=== PATIENT | male | born 1935 | race Caucasian/White ===

== ENCOUNTER 2016-12-14 07:10 | Observation (INO) | payer MEDICARE, OTHER ==
[2016-12-14] MEDS ORDERED: Sodium Chloride 0.9% 5 ML Syringe FLUSH PRN (07:18)
[2016-12-14 07:59] LABS: CHLORIDE,CL 104 mmol/L (98-115); SODIUM,NA 141 mmol/L (136-145)
--- NOTE | 2016-12-14 11:23 | EDM.PDOC ---
ED HPI GENERAL MEDICAL PROBLEM - General Chief Complaint: General Stated Complaint: SOB Time Seen by Provider: 12/14/16 07:50 Source of Information: Reports: Patient History Limitations: Reports: No limitations - History of Present Illness INITIAL COMMENTS - FREE TEXT/NARRATIVE: PT STATES HE DEVELOPED SOB OVER PAST 2 DAYS. DENIES CP, FEVER, N/V/D, DIZZINESS , FUENTES, ABD PAIN, OR BLOOD IN STOOL. ADMITS TO CONSTIPATION. Onset Date: 12/12/16 Duration: Getting worse Improves with: Reports: None Worsens with: Reports: Movement Context: Reports: Activity Associated Symptoms: Reports: no other symptoms Treatments PEDIATRIC DENTIST: Reports: Oxygen, Other (see below) Other Treatments PEDIATRIC DENTIST: home O2 - Related Data Allergies Allergy/AdvReac Type Severity Reaction Status Date / Time No Known Drug Allergies Allergy Cannot Verified 12/14/16 07:13 Remember Home Meds: Home Meds Allopurinol [Zyloprim] 100 mg PO BEDTIME 12/14/16 [History] Carbidopa/Levodopa [Carbidopa-Levodopa 25-100 Tab] 1 tab PO DAILY 12/14/16 [ History] Carvedilol [Carvedilol] 25 mg PO DAILY 12/14/16 [History] Digoxin 125 mcg PO DAILY 12/14/16 [History] Furosemide 40 mg PO DAILY 12/14/16 [History] Insulin Glarg,Human.Rec.Analog [LantUS Solostar] 75 units SQ BEDTIME 12/14/16 [ History] Lisinopril 20 mg PO DAILY 12/14/16 [History] Simvastatin [Simvastatin] 20 mg PO BEDTIME 12/14/16 [History] Sotalol [Betapace] 80 mg PO BID 12/14/16 [History] Tamsulosin [Flomax] 0.4 mg PO DAILY 12/14/16 [History] Terazosin HCl [Terazosin] 2 mg PO DAILY 12/14/16 [History] Warfarin [Coumadin] 2.5 mg PO MOFR 12/14/16 [History] Warfarin [Coumadin] 5 mg PO SUTUWETHSA 12/14/16 [History] metFORMIN HCl [Metformin HCl] 500 mg PO TIDMEALS 12/14/16 [History] Social & Family History - Tobacco Use Smoking Status *Q: Former Smoker Years of Tobacco use: 15 Packs/Tins Daily: 1 Used Tobacco, but Quit: Yes Month Tobacco Last Used: august Second Hand Smoke Exposure: No - Caffeine Use Caffeine Use: Reports: Coffee - Recreational Drug Use Recreational Drug Use: No ED ROS GENERAL - Review of Systems Review Of Systems: ROS reveals no pertinent complaints other than HPI. Constitutional: Reports: no symptoms HEENT: Reports: No symptoms Respiratory: Reports: No Symptoms Cardiovascular: Reports: Dyspnea on exertion Endocrine: Reports: no symptoms GI/Abdominal: Reports: Constipation : Reports: no symptoms Musculoskeletal: Reports: no symptoms Skin: Reports: no symptoms Neurological: Reports: No Symptoms Psychiatric: Reports: No symptoms Hematologic/Lymphatic: Reports: no symptoms Immunologic: Reports: no symptoms ED EXAM, GENERAL - Physical Exam Exam: See Below Exam Limited By: No limitations General Appearance: alert, WD/WN, no apparent distress Eye Exam: bilateral eye: normal inspection Nose: normal inspection, normal mucosa, no blood Throat/Mouth: Normal inspection, Normal oropharynx, No airway compromise Head: atraumatic, normocephalic Neck: normal inspection, supple Respiratory/Chest: no respiratory distress, decreased breath sounds (BIBASILAR) Cardiovascular: normal peripheral pulses, regular rate, rhythm, diastolic murmur GI/Abdominal: normal bowel sounds, soft, non tender, no organomegaly, no distention, no abnormal bruit, no mass Back Exam: normal inspection. No: CVA tenderness (L), CVA tenderness (R) Extremities: normal inspection, no pedal edema Neurological: alert, oriented, CN II-XII intact, normal cognition, no motor/ sensory deficits Psychiatric: normal affect, normal mood Skin Exam: Warm, Dry, Intact, Normal color, No rash Lymphatic: no adenopathy EKG INTERPRETATION EKG Date: 12/14/16 Time: 07:25 Rate (beats/min): 70 QRS: wide EKG Interpretation Comments: OLD INFARCT / NO ACUTE Course - Vital Signs Last Recorded V/S: Last Vital Signs Temp 97.8 F 12/14/16 07:10 Pulse 68 12/14/16 07:30 Resp 28 H 12/14/16 07:30 BP 155/74 H 12/14/16 07:30 Pulse Ox 97 12/14/16 07:30 - Orders/Labs/Meds Orders: Active Orders 24 hr Category Date Time Status EKG Documentation Completion [RC] ASDIRECTED Care 12/14/16 07:20 Active Peripheral IV Care [RC] . DIRECTED Care 12/14/16 07:20 Active Sodium Chloride 0.9% [Syrex Flush] Med 12/14/16 07:18 Active 5 ml FLUSH Q8HR PRN Peripheral IV Insertion Adult [OM.PC] Stat Oth 12/14/16 07:18 Ordered EKG 12 Lead [EK] Stat Ther 12/14/16 07:18 Ordered Medication Orders Sodium Chloride (Syrex Flush) 5 ml FLUSH Q8HR PRN PRN Reason: Keep Vein Open Labs: Laboratory Tests 12/14/16 12/14/16 12/14/16 Range/Units 07:25 07:25 07:35 WBC 15.3 H (5.0-10.0) 10^3/uL RBC 3.91 L (4.50-6.00) 10^6/uL Hgb 11.1 L (13.0-17.0) g/dL Hct 33.2 L (40.0-52.0) % MCV 85.0 (82.0-92.0) fL MCH 28.5 (27.0-31.0) pg MCHC 33.5 (32.0-36.0) g/dL RDW 13.6 (11.5-14.5) % Plt Count 211 (150-300) 10^3/uL MPV 8.9 (7.4-10.4) fL Neut % (Auto) 79.4 H (50.0-70.0) % Lymph % (Auto) 13.4 L (20.0-40.0) % [place] % (Auto) 6.1 (2.0-8.0) % Eos % (Auto) 0.6 L (1.0-3.0) % Baso % (Auto) 0.5 (0.0-1.0) % Neut # (Auto) 12.1 H (2.5-7.0) 10^3/uL Lymph # (Auto) 2.1 (1.0-4.0) 10^3/uL [place] # (Auto) 0.9 H (0.1-0.8) 10^3/uL Eos # (Auto) 0.1 (0.1-0.3) 10^3/uL Baso # (Auto) 0.1 (0.0-0.1) 10^3/uL Sodium 141 (136-145) mmol/L Potassium 4.3 (3.3-5.3) mmol/L Chloride 104 (98-115) mmol/L Carbon Dioxide 28.9 (21.0-32.0) mmol/L BUN 18 (6-25) mg/dL Creatinine 0.98 (0.51-1.17) mg/dL Est Cr Clr Drug Dosing 65.10 mL/min Estimated GFR (MDRD) > 60 mL/min Glucose 263 H (70-110) mg/dL Calcium 8.9 (8.7-10.3) mg/dL Total Bilirubin 1.4 H (0.2-1.0) mg/dL AST 30 (15-37) U/L ALT 29 (12-78) U/L Alkaline Phosphatase 71 (46-116) IU/L Total Protein 7.2 (6.4-8.2) g/dL Albumin 3.35 (3.00-4.80) g/dL Specimen Type Urincc Urine Color Yellow (YELLOW) Urine Appearance Clear (CLEAR) Urine pH 6.0 (5.0-9.0) Ur Specific [place] 1.020 (1.005-1.030) Urine Protein 100 H (NEGATIVE) mg/dL Urine Glucose (UA) 100 H (NEGATIVE) mg/dL Urine Ketones Trace H (NEGATIVE) mg/dL Urine Occult Blood Negative (NEGATIVE) Urine Nitrite Negative (NEGATIVE) Urine Bilirubin Negative (NEGATIVE) Urine Urobilinogen 4.0 H (0.2-1.0) E.U./dL Ur Leukocyte Esterase Negative (NEGATIVE) Urine RBC 0-5 /HPF Urine WBC 0-5 /HPF Ur Epithelial Cells Occasional /LPF Urine Bacteria Occasional (NONE TO FEW) /HPF Urine Mucus Few H (NEGATIVE) /LPF Meds: Medications Generic Name Dose Route Start Last Admin Trade Name Freq PRN Reason Stop Dose Admin Sodium Chloride 5 ml 12/14/16 07:18 Syrex Flush FLUSH Q8HR PRN Keep Vein Open - Radiology Interpretation Free Text/Narrative:: CXR SHOWS BILAT BASILAR EFFUSIONS - Re-Assessments/Exams Free Text/Narrative Re-Assessment/Exam: 12/14/16 11:44 PT AFEBRILE, NONTOXIC APPEARING, VSS. DISCUSSED CASE WITH DR ROMERO. WILL ADMIT TO OBSERVATION Departure - Departure Time of Disposition: 11:45 Disposition: Refer to Observation Condition: fair Clinical Impression: SOB (shortness of breath) CHF (congestive heart failure) Qualifiers: Congestive heart failure type: unspecified congestive heart failure type Congestive heart failure chronicity: acute on chronic Qualified Code(s): I50.9 - Heart failure, unspecified Forms: ED Department Discharge - My Orders Last 24 Hours: My Active Orders 12/14/16 07:18 Sodium Chloride 0.9% [Syrex Flush] 5 ml FLUSH Q8HR PRN Peripheral IV Insertion Adult [OM.PC] Stat EKG 12 Lead [EK] Stat 12/14/16 07:20 EKG Documentation Completion [RC] ASDIRECTED Peripheral IV Care [RC] . DIRECTED - Assessment/Plan Last 24 Hours: My Active Orders 12/14/16 07:18 Sodium Chloride 0.9% [Syrex Flush] 5 ml FLUSH Q8HR PRN Peripheral IV Insertion Adult [OM.PC] Stat EKG 12 Lead [EK] Stat 12/14/16 07:20 EKG Documentation Completion [RC] ASDIRECTED Peripheral IV Care [RC] . DIRECTED Assessment:: SOB / CHF Plan: ADMIT TO OBS FOR DR ROMERO
[2016-12-14] MEDS ORDERED: metFORMIN 500 MG Tab PO SCH (14:00)
[2016-12-14] MEDS ORDERED: Bisacodyl 10 MG Supp RECTAL ONE (14:00)
[2016-12-14] MEDS: Sodium Chloride 0.9% 250 ML IV SCH (14:48)
[2016-12-14] MEDS: Ciprofloxacin in D5W 200 ML IV SCH ×2 (14:48→21:14)
[2016-12-14] MEDS: Magnesium Hydroxide 400 MG/5 ML Susp 30 ML Cup PO SCH ×2 (15:56→21:10)
[2016-12-14] MEDS: metroNIDAZOLE/Normal Saline 100 ML IV SCH ×2 (15:56→23:18)
[2016-12-14] MEDS: Terazosin 1 MG Cap PO SCH (17:16)
[2016-12-14] MEDS: Lisinopril 20 MG Tab PO SCH (17:17)
[2016-12-14] MEDS: Tamsulosin 0.4 MG Cap.ER PO SCH (17:17)
[2016-12-14] MEDS: Digoxin 125 MCG Tab PO SCH (17:17)
[2016-12-14] MEDS: Furosemide 40 MG Tab PO SCH (17:18)
[2016-12-14] MEDS ORDERED: Warfarin 2.5 MG Tab PO SCH (18:00)
[2016-12-14] MEDS: metFORMIN 500 MG Tab PO SCH (18:10)
[2016-12-14] MEDS: Insulin Aspart 100 Units/ML 3 ML Pen SUBCUT SCH ×2 (18:10→21:21)
[2016-12-14] MEDS ORDERED: Insulin Aspart 100 Units/ML 3 ML Pen SUBCUT SCH (21:00)
[2016-12-14] MEDS: Sotalol 80 MG Tab PO SCH (21:08)
[2016-12-14] MEDS: Carvedilol 12.5 MG Tab PO SCH (21:09)
[2016-12-14] MEDS: Allopurinol 100 MG Tab PO SCH (21:10)
[2016-12-14] MEDS: Carbidopa/Levodopa 25-100 MG Tab.ER PO SCH (21:10)
[2016-12-14] MEDS: Simvastatin 20 MG Tab PO SCH (21:10)
[2016-12-14] MEDS: Insulin Detemir 100 Units/ML 3 ML Pen SUBCUT SCH (21:19)
[2016-12-15] MEDS: metroNIDAZOLE/Normal Saline 100 ML IV SCH ×3 (06:44→22:24)
[2016-12-15 07:58] LABS: CHLORIDE,CL 103 mmol/L (98-115); SODIUM,NA 141 mmol/L (136-145)
[2016-12-15] MEDS: Insulin Aspart 100 Units/ML 3 ML Pen SUBCUT SCH ×4 (08:21→21:03)
[2016-12-15] MEDS: Lisinopril 20 MG Tab PO SCH (08:24)
[2016-12-15] MEDS: Tamsulosin 0.4 MG Cap.ER PO SCH (08:25)
[2016-12-15] MEDS: Magnesium Hydroxide 400 MG/5 ML Susp 30 ML Cup PO SCH (08:25)
[2016-12-15] MEDS: Furosemide 40 MG Tab PO SCH (08:25)
[2016-12-15] MEDS: Digoxin 125 MCG Tab PO SCH (08:25)
[2016-12-15] MEDS: Terazosin 1 MG Cap PO SCH (08:25)
[2016-12-15] MEDS: metFORMIN 500 MG Tab PO SCH ×3 (08:26→18:12)
[2016-12-15] MEDS: Sotalol 80 MG Tab PO SCH ×2 (08:26→20:57)
[2016-12-15] MEDS: Carvedilol 12.5 MG Tab PO SCH ×2 (08:26→20:57)
[2016-12-15] MEDS: Ciprofloxacin in D5W 200 ML IV SCH ×2 (10:35→20:59)
[2016-12-15] MEDS: Lactulose Soln 10 GM/15 ML 30 ML UD Cup PO SCH (10:36)
[2016-12-15] MEDS ORDERED: Furosemide 40 MG/4 ML VIAL IVPUSH ONE (11:00)
--- NOTE | 2016-12-15 12:51 | PN ---
12/15/2016 PATIENT NAME: ALEXANDRA SIMMONS SUBJECTIVE: This is a 81-year-old gentleman who had presented to the emergency room yesterday with complaints of just shortness of breath. He denied any cough, fever, or chills. He just felt short of breath. Chest x-ray that was obtained in the emergency room was clear per Radiology. He did have small minimal bilateral effusions otherwise unremarkable. The patient had no cough. The patient stated that he has not had a bowel movement for probably three days. The patient was found have an elevated white count at 15.3. The patient was admitted to the hospital at that time. Today, he says that he has no stomach ache. He has no shortness of breath. He has no chest pain. He feels really good today. He has been able the eat, but he has been eating a bland diet, so far with no milk products. He denies any blood in his stool. He states after he had a Dulcolax suppository yesterday, he had good results. OBJECTIVE: VITAL SIGNS: Today, the patient's pulse is 72, blood pressure is 108/49. The patient's oxygen saturation 93% on 2L nasal cannula. LABORATORY WORK: Today, the patient's CBC shows a white count continues to be elevated at 11.4, this is down from 15.3 yesterday. The patient's hemoglobin is at 9.6. The patient's PT today is 21.7. INR is within acceptable range at 2.1. The patient's chemistry panel is unremarkable except for glucose is elevated. IMPRESSION AND PLAN: 1. Leukocytosis with constipation, possible gastroenteritis versus colitis versus diverticulitis. Plan: We are going to continue with Cipro 400 mg IV every 12 hours along with Flagyl 500 mg IV every 8 hours. The patient seems to be improving. The patient's white count has come down to 11.4 today. The patient did have good results after Dulcolax suppository yesterday. He refused his milk of magnesia. We are going to give him 20 g of lactulose today and see how he does. We will repeat a CBC in the morning. 2. History of gout. Plan: Continue with allopurinol 100 mg daily. 3. Restless legs syndrome. Plan: Continue with Sinemet 25/100 one tablet at bedtime. 4. 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 Plan: Continue with Coreg 25 mg twice a day along with digoxin 125 mcg daily. The patient is getting Lasix 40 mg orally daily. The patient's brain natriuretic peptide was elevated yesterday at 857. I am going to give the patient one time dose of Lasix 20 mg IV today to see how he responds. 5. Diabetes mellitus. Plan: Continue with Levemir 75 mg subcutaneously daily. We will continue to check blood sugars four times a day. He does have medium dose sliding scale insulin ordered with NovoLog. We will continue with metformin 500 mg three times a day. 6. Hypertension, which is stable. We will continue with lisinopril 20 mg daily. 7. History of hyperlipidemia. Plan: Continue with Zocor 20 mg daily. 8. History of arrhythmias. Plan: Continue with Betapace 80 mg twice a day. He does have a pacemaker. He is 100% V-paced at 70 beats per minute. We will continue with Coumadin. INR was therapeutic today at 2.1. 9. History of benign prostatic hypertrophy. Plan: Continue with Flomax 0.4 mg daily along with Hytrin 2 mg daily. 10.Anemia. Plan: The patient's hemoglobin is low at 9.6. We will obtain a ferritin level along with an iron level today in that lab work. CBC will be ordered tomorrow. /[id number]/MODL MTDD
[2016-12-15] MEDS: Sodium Chloride 0.9% 250 ML IV SCH (15:13)
--- NOTE | 2016-12-15 15:24 | HP ---
CHIEF COMPLAINT: Shortness of breath with constipation. HISTORY OF PRESENT ILLNESS: This is a 81-year-old patient that states he was at home. He noticed that he just felt short of breath. He has been having some constipation lately, so he came to emergency room for evaluation about shortness of breath. He denied any fever or chills at home. He denied any cough. He denied any chest pain. He denied any signs and symptoms of an upper respiratory infection. PAST MEDICAL HISTORY: Gout, restless legs syndrome, hypertension, congestive heart failure, diabetes, hyperlipidemia, irregular heart rhythm, BPH. MEDICATIONS: The patient is taking at home, allopurinol 100 mg daily, Sinemet 25/100 one tablet at bedtime, carvedilol 25 mg daily, digoxin 125 mcg daily, Lasix 40 mg daily, Lantus 75 units daily, lisinopril 20 mg daily, Zocor 20 mg daily, Betapace 80 mg twice a day, Flomax 0.4 mg daily, terazosin 2 mg daily, Coumadin alternating dose depending on INR managed by an INR clinic, metformin 500 mg three times a day. ALLERGIES: No known drug allergies. SOCIAL/PERSONAL HISTORY: The patient does live at home. He is retired. He denies any alcohol or tobacco use. REVIEW OF SYSTEMS: CONSTITUTIONAL: No weight loss. No fever. No chills. No night sweats. Appetite is good. No fatigue. EYES: No recent visual changes. ENT: No sinus congestion or hoarseness. CARDIOVASCULAR: No chest pain or palpitations. RESPIRATORY: He complains of some shortness of breath. No cough. No fever and chills. No productive cough. GI: No vomiting, diarrhea or melena. No bowel movement for the past 2 to 3 days. : No dysuria or hematuria. MUSCULOSKELETAL: No new bone pain or joint swelling. INTEGUMENTARY: No rash or pruritus. NEUROLOGIC/PSYCHIATRIC: No recent headache or focal weakness. No depressive symptoms. ENDOCRINE: No heat or cold intolerances or polydipsia. HEMATOLOGIC/LYMPHATIC: No excessive bruising or lymph node swelling. ALLERGIC/IMMUNOLOGIC: No hives or recurrent infections. PHYSICAL EXAMINATION: GENERAL: This is a male, in no acute distress. VITAL SIGNS: Temperature would be 98.8, pulse 79, blood pressure 107/38, respiratory rate 38, oxygen saturations 91% on 2 L nasal cannula. HEENT: Head is normocephalic. EOMs are intact. Pupils are equal, round, and reactive to light and accommodation. Bilateral tympanic membranes are intact. NECK: Supple. No pharyngeal erythema noted. LUNGS: Clear to auscultation throughout lung barnard. CARDIAC: Regular rate and rhythm. No murmurs identified. ABDOMEN: Soft, nontender. Bowel sounds are hypoactive. No fluid shift. EXTREMITIES: Full range of motion. No joint effusion noted. NEUROLOGIC: He is grossly intact. DIAGNOSTIC: The patient did have an abdominal x-ray, flat and upright performed in the emergency room, which the impression reads no significant stool volume per Radiology. The patient's EKG that was obtained in the emergency room showed 100% v-paced at 70 beats per minute. The patient also did have a chest x-ray obtained in the emergency room, which the impression reads per Radiology is minimal bilateral effusions. Otherwise, unremarkable. LABORATORY DATA: The patient's lab work that was obtained in the emergency room. CBC showed a white count elevated at 15.3, hemoglobin 11.1, platelet count at 211. The patient's PT was 20.5. INR was 2.0. Chemistry panel showed glucose elevated at 263. Otherwise, unremarkable. The patient's brain natriuretic peptide was elevated at 857. The patient's urinalysis was unremarkable. IMPRESSION/PLAN: 1. Leukocytosis with constipation. Plan: We are going to start the patient on Cipro 400 mg IV every 12 hours. We will also start the patient on Flagyl 500 mg every 8 hours IV, possible diverticulitis or colitis with the elevated white count. We are also going to give the patient one time Dulcolax suppository. Start the patient on milk of magnesia 30 mL twice a day. We will start the patient on lactulose orally tomorrow morning. 2. History of gout. Plan: Continue with allopurinol 100 mg daily. 3. Restless legs syndrome. Continue with Sinemet 25/100 one tab at bedtime. 4. History of coronary artery disease with congestive heart failure. Plan: Continue with beta-juan miguel of Coreg 25 mg twice a day along with digoxin 125 mcg daily, also Lasix 40 mg daily. The patient's brain natriuretic peptide was elevated at 857. We will continue with accurate I's and O's. 5. History of diabetes mellitus type 2. Plan: Continue with Levemir 75 units once daily. We are going to check the patient's blood sugar 4 times a day and do medium dose sliding scale insulin with NovoLog. Continue with metformin 500 mg three times a day orally. 6. History of hypertension. Plan: Continue with lisinopril 20 mg daily. 7. Hyperlipidemia. Plan: Continue with Zocor 20 mg daily. 8. History of arrhythmias. Plan: Continue with Betapace 80 mg twice a day. The patient does have a pacemaker in place. He had been 100% paced at 70 beats per minute. We will continue with Coumadin as ordered before his INR was within therapeutic range. 9. History of benign prostatic hypertrophy. Plan: Continue with Flomax 0.4 mg daily along with Hytrin 2 mg daily. /[id number]/MODL
[2016-12-15] MEDS ORDERED: Warfarin 5 MG Tab PO SCH (18:00)
[2016-12-15] MEDS: Simvastatin 20 MG Tab PO SCH (20:58)
[2016-12-15] MEDS: Allopurinol 100 MG Tab PO SCH (20:58)
[2016-12-15] MEDS: Carbidopa/Levodopa 25-100 MG Tab.ER PO SCH (20:58)
[2016-12-15] MEDS: Insulin Detemir 100 Units/ML 3 ML Pen SUBCUT SCH (21:01)
[2016-12-16] MEDS ORDERED: Acetaminophen 325 MG Tab PO PRN ×2 (01:58→02:40)
[2016-12-16] MEDS: metroNIDAZOLE/Normal Saline 100 ML IV SCH (06:29)
[2016-12-16 06:52] VITALS: BP 132/63
[2016-12-16] MEDS: Insulin Aspart 100 Units/ML 3 ML Pen SUBCUT SCH (07:49)
[2016-12-16] MEDS: metFORMIN 500 MG Tab PO SCH (07:51)
[2016-12-16] MEDS: Lisinopril 20 MG Tab PO SCH (08:09)
[2016-12-16] MEDS: Furosemide 40 MG Tab PO SCH (08:09)
[2016-12-16] MEDS: Digoxin 125 MCG Tab PO SCH (08:09)
[2016-12-16] MEDS: Sotalol 80 MG Tab PO SCH (08:09)
[2016-12-16] MEDS: Tamsulosin 0.4 MG Cap.ER PO SCH (08:09)
[2016-12-16] MEDS: Terazosin 1 MG Cap PO SCH (08:10)
[2016-12-16] MEDS: Carvedilol 12.5 MG Tab PO SCH (08:11)
[2016-12-16] MEDS: Lactulose Soln 10 GM/15 ML 30 ML UD Cup PO SCH (09:27)
--- NOTE | 2016-12-17 09:29 | DISCH ---
ADMITTING DIAGNOSIS: Leukocytosis with constipation. FINAL DIAGNOSIS: Leukocytosis, most likely diverticulitis. BRIEF HISTORY AND ESSENTIAL FINDINGS: The patient was at home and he was feeling short of breath, so he admitted to the emergency room. Once he is in the emergency room, chest x-ray was completed, which was normal. The patient at that time had stated that he has not had a bowel movement for three days. He denied any abdominal pain or any chest pain. He was found to have an elevated white count of 15.3. The patient was admitted to the hospital at that time for further evaluation and treatment. SIGNIFICANT LABS, X-RAYS, AND CONSULTATION FINDINGS: The patient's lab work on admission that was performed in the ER. CBC showed a white count elevated at 15.3, hemoglobin 11.1, platelet count at 211. PT was 20.5. INR 2.0. Chemistry panel was unremarkable except for glucose elevated at 263. The patient's brain natriuretic peptide at that time was elevated at 857. Troponin was negative at 0.04. Total bilirubin was slightly elevated at 1.4. Repeat CBC that was done on 12/15/2016, showed a white count had come down to 11.4, hemoglobin 9.6, PT at that time was 21.7. INR was 2.1. Chemistry panel was unremarkable except for elevated glucose. I did obtain an iron level that day which shows his iron to be low at 22. TIBC was in normal range at 291. Transferrin was in normal range at 208. The patient's transferrin saturation was slightly low at 7.6, ferritin within normal range at 75. The rest of the patient's chemistry panel was unremarkable. Repeat lab work on day of discharge, which was 12/16/2016, CBC showed a white count slightly elevated at 10.1, hemoglobin was stable at 10.2, PT was 22.2, and INR was within acceptable range at 2.1. The patient's blood sugars well controlled throughout hospitalization. The patient had an abdominal x-ray that was flat and upright performed in the emergency room. The impression reads no significant stool volume per Radiology, otherwise unremarkable. The patient's chest x-ray that was obtained in the emergency room, minimal bilateral effusions, otherwise unremarkable. The patient's EKG that was obtained in the emergency room shows 100% ventricularly paced at 70 beats a minute. Patient's last colonoscopy showed severe diverticulosis. COURSE IN THE HOSPITAL WITH COMPLICATIONS IF ANY: The patient had no complications within the hospital. He did have some left lower quadrant pain. He was given some Tylenol, that was resolved. He had no nausea or vomiting. His shortness of breath improved. The patient was given 20 mg of Lasix IV on top of his 40 mg Lasix, he takes daily with his brain natriuretic peptide being elevated at 857, and he had no further shortness of breath. He felt fine at discharge. CONDITION TREATMENT AND FINAL DISPOSITION ON DISCHARGE AND PROGNOSIS: Condition is stable. Final disposition will be home. IMPRESSION AND PLAN: 1. Leukocytosis with constipation, most likely diverticulitis. Gastroenteritis versus colitis cannot be ruled out either. Plan: Patient's most recent colonscopy showed severe diverticulosis. We are going to send the patient home on Cipro 500 mg twice a day for seven more days. The patient did have a Dulcolax suppository in the hospital here where he had good results. He also did get some lactulose, where he had good results. The abdominal pain has been minimal. 2. History of gout. Plan: Continue with allopurinol 100 mg daily. 3. Restless legs syndrome. Plan: Continue with Sinemet 25/100, one tablet at bedtime. 4. 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 Plan: Continue with Coreg 25 mg twice a day along with digoxin 125 mcg daily. Continue with Lasix 40 mg daily at home. The patient's brain natriuretic peptide was elevated on admission at 857. He did receive a one time dose of Lasix IV 20 mg, which he responded well to. He had no further shortness of breath. 5. Diabetes mellitus. Plan: Continue with Levemir 75 units subcutaneously daily along with metformin 500 mg three times a day. He does check his blood sugars at home. They have been well controlled here in the hospital. 6. Hypertension. Continue with lisinopril 20 mg daily. 7. History of hyperlipidemia. Plan: Continue with Zocor 20 mg daily. 8. History of arrhythmias. Plan: Continue with Betapace 80 mg twice a day. The patient does have a cardiac pacemaker in place. He has been 100% V- paced at 70 beats per minute most of the hospital stay. Continue with Coumadin. He is managed by INR clinic. His INR at discharge was within therapeutic range at 2.1. 9. History of benign prostatic hyperplasia. Plan: Continue with Flomax 0.4 mg daily along with Hytrin 2 mg daily. 10.Anemia. Plan: The patient's hemoglobin on day of discharge was 10.2. Iron studies that were obtained while in the hospital, the patient's iron level was low at 22, TIBC was within normal range at 291, transferrin was within normal range at 208, transferrin saturation was low at 7.6, and ferritin within normal range at 75. OVERALL PLAN: I am going to send the patient home today on Cipro 500 mg twice a day for seven days. The patient will follow up Kya Gloria PA-C in the clinic in 1 week. /[id number]/MODL MTDD
== END 2016-12-16 11:27 | disposition home or self-care (01) ==
LOC: SUPCPDRO 07:10 → KA.ED 07:10 → KA.MS 11:50
PROVIDERS: ADMIT Physician Assistant Surgical; ATTEND Family Medicine
DX: D72.829 Elevated white blood cell count, unspecified (principal); K59.00 Constipation, unspecified; G25.81 Restless legs syndrome; I25.10 Atherosclerotic heart disease of native coronary artery without angina pectoris; I50.9 Heart failure, unspecified; I10 Essential (primary) hypertension; E11.9 Type 2 diabetes mellitus without complications; D64.9 Anemia, unspecified; E78.5 Hyperlipidemia, unspecified; Z79.01 Long term (current) use of anticoagulants; Z79.899 Other long term (current) drug therapy; Z79.82 Long term (current) use of aspirin; Z87.891 Personal history of nicotine dependence
CPT/HCPCS: 36415; 71020; 74020; 80053; 80162; 81001; 82728; 82962; 83540; 83880; 84466; 84484; 85025; 85610; 99285; A9270; J0744; J1815; J1940; J7050; 93005; 96361; 96365; 96366; 96367; 96375; G0378

== ENCOUNTER 2019-01-10 17:45 | Inpatient (IN) | payer MEDICARE, OTHER ==
[2019-01-10] MEDS ORDERED: Insulin Aspart 100 Units/ML 3 ML Pen SUBCUT ONE (18:49)
[2019-01-10] MEDS ORDERED: metroNIDAZOLE/Normal Saline 500 MG in Premix Bag 1 BAG IV SCH (19:00)
[2019-01-10] MEDS ORDERED: Sodium Chloride 0.9% 750 ML IV ONE (19:00)
[2019-01-10] MEDS: cefTRIAXone 1 GM Vial IVPUSH SCH (19:24)
--- NOTE | 2019-01-10 19:55 | CT ---
[id number] CT/CT Abdomen Pelvis WO IV EXAM: CT Abdomen Pelvis WO IV CLINICAL DATA: LLQ ABDOMINAL PAIN/DIVERTICULITIS COMPARISON STUDY: None. FINDINGS: Colonic diverticulosis. Negative for acute diverticulitis. No small bowel obstruction or inflammation. Appendix is normal. Cholelithiasis. No evidence of acute cholecystitis. Liver, spleen, pancreas, and adrenal glands are unremarkable. No urinary tract calculi or evidence of urinary tract obstruction. Bladder diverticulum on the left. Sequela of prior hernia repair in the left lower quadrant. 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 Mild changes of basal predominant subpleural interstitial reticulation, nonspecific but can be seen with sequela of chronic interstitial lung disease. Diffuse bone demineralization. No acute fracture or compression deformity. IMPRESSION: Colonic diverticulosis without evidence of acute diverticulitis. No other acute findings in the abdomen or pelvis, described in detail above. Carlos Manuel Winn MD 01/10/191953 Thank you for allowing us to participate in the care of your patient.
[2019-01-10] MEDS ORDERED: Sodium Chloride 0.9% 1,000 ML IV SCH (20:45)
[2019-01-10] MEDS: Carbidopa/Levodopa 25-100 MG Tab.ER PO SCH (21:35)
[2019-01-10] MEDS: Sotalol 80 MG Tab PO SCH (21:35)
[2019-01-10] MEDS: Carvedilol 12.5 MG Tab PO SCH (21:35)
[2019-01-10] MEDS ORDERED: Insulin Detemir 100 Units/ML 3 ML Pen SUBCUT ONE (22:15)
[2019-01-10] MEDS: Warfarin 5 MG Tab PO SCH (22:25)
[2019-01-11] MEDS: Sodium Chloride 0.9% 1,000 ML IV SCH ×3 (00:27→22:20)
[2019-01-11] MEDS ORDERED: Sodium Chloride 0.9% 1,000 ML IV SCH (01:30)
[2019-01-11] MEDS: Acetaminophen 325 MG Tab PO PRN ×2 (03:57→19:41)
[2019-01-11 07:47] LABS: ANION GAP 14.3 mmol/L (5-15); CHLORIDE,CL 105 mmol/L (98-115); SODIUM,NA 142 mmol/L (136-145)
[2019-01-11] MEDS: Carvedilol 12.5 MG Tab PO SCH ×2 (08:28→21:31)
[2019-01-11] MEDS: Tamsulosin 0.4 MG Cap.ER PO SCH (08:28)
[2019-01-11] MEDS: Sotalol 80 MG Tab PO SCH ×2 (08:28→21:31)
[2019-01-11] MEDS ORDERED: Terazosin 1 MG Cap PO SCH (09:00)
[2019-01-11] MEDS ORDERED: Lisinopril 20 MG Tab PO SCH (09:00)
[2019-01-11] MEDS ORDERED: Digoxin 125 MCG Tab PO SCH (09:00)
[2019-01-11] MEDS ORDERED: Furosemide 40 MG Tab PO SCH (09:00)
--- NOTE | 2019-01-11 09:05 | PCM.PN ---
- General Info Date of Service: 01/11/19 Functional Status: Reports: Pain Controlled, Urinating. Denies: Tolerating Diet , Ambulating, New Symptoms (loss of appetite) - Review of Systems General: Denies: Fever, Weakness, Fatigue HEENT: Reports: No Symptoms Pulmonary: Reports: No Symptoms Cardiovascular: Reports: No Symptoms Gastrointestinal: Reports: Decreased Appetite. Denies: Abdominal Pain, Constipation, Diarrhea, Difficulty Swallowing, Nausea Genitourinary: Reports: No Symptoms Musculoskeletal: Reports: No Symptoms Skin: Reports: No Symptoms Neurological: Reports: No Symptoms Psychiatric: Reports: No Symptoms - Patient Data Vitals - Most Recent: Last Vital Signs Temp 97.8 F 01/11/19 06:51 Pulse 71 01/11/19 08:28 Resp 20 01/11/19 06:51 BP 133/70 01/11/19 08:28 Pulse Ox 96 01/11/19 07:35 Weight - Most Recent: 194 lb I&O - Last 24 Hours: Intake & Output 01/10/19 01/11/19 01/11/19 22:59 06:59 14:59 Intake Total 864 1372 Output Total 150 300 Balance 714 1072 Lab Results Last 24 Hours: Laboratory Results - last 24 hr 01/10/19 01/10/19 01/11/19 Range/Units 20:05 21:39 07:10 WBC 16.41 H (5.00-10.00) 10^3/uL RBC 3.98 L (4.50-6.00) 10^6/uL Hgb 11.6 L (13.0-17.0) g/dL Hct 36.0 L (40.0-52.0) % MCV 90.5 D (82.0-92.0) fL MCH 29.1 (27.0-31.0) pg MCHC 32.2 (32.0-36.0) g/dL RDW 13.4 (11.5-14.5) % Plt Count 238 (150-400) 10^3/uL MPV 11.3 H (7.4-10.4) fL Immature Gran % (Auto) 0.2 (0.0-5.0) % Neut % (Auto) 73.5 H (50.0-70.0) % Lymph % (Auto) 17.7 L (20.0-40.0) % [place] % (Auto) 7.8 (2.0-8.0) % Eos % (Auto) 0.4 L (1.0-3.0) % Baso % (Auto) 0.4 (0.0-1.0) % Immature Gran # (Auto) 0.04 (0.00-0.50) 10^3/uL Neut # (Auto) 12.06 H (2.50-7.00) 10^3/uL Lymph # (Auto) 2.90 (1.00-4.00) 10^3/uL [place] # (Auto) 1.28 H (0.10-0.80) 10^3/uL Eos # (Auto) 0.07 L (0.10-0.30) 10^3/uL Baso # (Auto) 0.06 (0.00-0.10) 10^3/uL PT (8.9-11.4) SEC INR (0.9-1.1) Sodium (136-145) mmol/L Potassium (3.3-5.3) mmol/L Chloride (98-115) mmol/L Carbon Dioxide (21.0-32.0) mmol/L Anion Gap (5-15) mmol/L BUN (6-25) mg/dL Creatinine (0.51-1.17) mg/dL Est Cr Clr Drug Dosing mL/min Estimated GFR (MDRD) mL/min Glucose (75 - 99) mg/dL POC Glucose 261 H (74-106) mg/dl Calcium (8.7-10.3) mg/dL Total Bilirubin (0.2-1.0) mg/dL AST (15-37) U/L ALT (12-78) U/L Alkaline Phosphatase (46-116) IU/L Total Protein (6.4-8.2) g/dL Albumin (3.00-4.80) g/dL Specimen Type Urinvoid Urine Color Yellow (YELLOW) Urine Appearance Cloudy H (CLEAR) Urine pH 5.5 (5.0-9.0) Ur Specific [place] 1.025 (1.005-1.030) Urine Protein 100 H (NEGATIVE) mg/dL Urine Glucose (UA) 500 H (NEGATIVE) mg/dL Urine Ketones 15 H (NEGATIVE) mg/dL Urine Occult Blood Moderate H (NEGATIVE) Urine Nitrite Positive H (NEGATIVE) Urine Bilirubin Negative (NEGATIVE) Urine Urobilinogen 0.2 (0.2-1.0) E.U./dL Ur Leukocyte Esterase Small H (NEGATIVE) Urine RBC See note (0-5) /HPF Urine WBC Packed (0-5) /HPF Urine Bacteria Moderate H (NONE TO FEW) /HPF Urinalysis Comment Digoxin (0.30-2.00) ng/mL 01/11/19 01/11/19 01/11/19 Range/Units 07:10 07:10 07:10 WBC (5.00-10.00) 10^3/uL RBC (4.50-6.00) 10^6/uL Hgb (13.0-17.0) g/dL Hct (40.0-52.0) % MCV (82.0-92.0) fL MCH (27.0-31.0) pg MCHC (32.0-36.0) g/dL RDW (11.5-14.5) % Plt Count (150-400) 10^3/uL MPV (7.4-10.4) fL Immature Gran % (Auto) (0.0-5.0) % Neut % (Auto) (50.0-70.0) % Lymph % (Auto) (20.0-40.0) % [place] % (Auto) (2.0-8.0) % Eos % (Auto) (1.0-3.0) % Baso % (Auto) (0.0-1.0) % Immature Gran # (Auto) (0.00-0.50) 10^3/uL Neut # (Auto) (2.50-7.00) 10^3/uL Lymph # (Auto) (1.00-4.00) 10^3/uL [place] # (Auto) (0.10-0.80) 10^3/uL Eos # (Auto) (0.10-0.30) 10^3/uL Baso # (Auto) (0.00-0.10) 10^3/uL PT 11.5 H D (8.9-11.4) SEC INR 1.1 (0.9-1.1) Sodium 142 (136-145) mmol/L Potassium 3.9 (3.3-5.3) mmol/L Chloride 105 (98-115) mmol/L Carbon Dioxide 26.6 (21.0-32.0) mmol/L Anion Gap 14.3 (5-15) mmol/L BUN 27 H (6-25) mg/dL Creatinine 0.98 (0.51-1.17) mg/dL Est Cr Clr Drug Dosing 62.96 mL/min Estimated GFR (MDRD) > 60 mL/min Glucose 217 H (75 - 99) mg/dL POC Glucose (74-106) mg/dl Calcium 8.8 (8.7-10.3) mg/dL Total Bilirubin 0.6 (0.2-1.0) mg/dL AST 16 (15-37) U/L ALT 10 L (12-78) U/L Alkaline Phosphatase 60 (46-116) IU/L Total Protein 6.4 (6.4-8.2) g/dL Albumin 2.62 L (3.00-4.80) g/dL Specimen Type Urine Color (YELLOW) Urine Appearance (CLEAR) Urine pH (5.0-9.0) Ur Specific [place] (1.005-1.030) Urine Protein (NEGATIVE) mg/dL Urine Glucose (UA) (NEGATIVE) mg/dL Urine Ketones (NEGATIVE) mg/dL Urine Occult Blood (NEGATIVE) Urine Nitrite (NEGATIVE) Urine Bilirubin (NEGATIVE) Urine Urobilinogen (0.2-1.0) E.U./dL Ur Leukocyte Esterase (NEGATIVE) Urine RBC (0-5) /HPF Urine WBC (0-5) /HPF Urine Bacteria (NONE TO FEW) /HPF Urinalysis Comment Digoxin 0.25 L (0.30-2.00) ng/mL Med Orders - Current: Current Medications Acetaminophen (Tylenol) 650 mg PO Q6H PRN PRN Reason: Pain Last Admin: 01/11/19 03:57 Dose: 650 mg Carbidopa/Levodopa (Sinemet Cr 25-100 Mg) 1 tab PO BEDTIME [facility] Last Admin: 01/10/19 21:35 Dose: 1 tab Carvedilol (Coreg) 25 mg PO BID [facility] Last Admin: 01/11/19 08:28 Dose: 25 mg Ceftriaxone Sodium (Rocephin) 1 gm IVPUSH Q24H [facility] Last Admin: 01/10/19 19:24 Dose: 1 gm Sodium Chloride (Normal Saline) 1,000 mls @ 110 mls/hr IV ASDIRECTED [facility] Last Admin: 01/11/19 00:27 Dose: 110 mls/hr Sotalol HCl (Betapace) 80 mg PO BID [facility] Last Admin: 01/11/19 08:28 Dose: 80 mg Tamsulosin HCl (Flomax) 0.4 mg PO DAILY [facility] Last Admin: 01/11/19 08:28 Dose: 0.4 mg Warfarin Sodium (Coumadin) 2.5 mg PO MoFr@1800 [facility] Warfarin Sodium (Coumadin) 5 mg PO SuTuWeThSa@1800 [facility] Last Admin: 01/10/19 22:25 Dose: 5 mg Discontinued Medications Digoxin (Lanoxin) 125 mcg PO DAILY [facility] Furosemide (Lasix) 40 mg PO DAILY [facility] Sodium Chloride (Normal Saline) 750 mls @ 125 mls/hr IV ONETIME ONE Stop: 01/11/19 00:59 Last Admin: 01/10/19 19:21 Dose: 125 mls/hr Metronidazole 500 mg/ Premix 100 mls @ 100 mls/hr IV Q8H [facility] Last Admin: 01/10/19 19:28 Dose: 100 mls/hr Sodium Chloride (Normal Saline) 1,000 mls @ 100 mls/hr IV ASDIRECTED [facility] Sodium Chloride (Normal Saline) 1,000 mls @ 500 mls/hr IV ASDIRECTED [facility] Stop: 01/10/19 21:45 Insulin Aspart (Novolog) 10 unit SUBCUT ONETIME ONE Stop: 01/10/19 18:50 Last Admin: 01/10/19 19:08 Dose: 10 units Insulin Detemir (Levemir) 5 unit SUBCUT NOW ONE Stop: 01/10/19 22:16 Last Admin: 01/10/19 22:25 Dose: 5 units Lisinopril (Prinivil) 20 mg PO DAILY [facility] Terazosin HCl (Hytrin) 2 mg PO DAILY [facility] - Exam Quality Assessment: Supplemental Oxygen General: Alert, Oriented, Cooperative, No Acute Distress Neck: Supple Lungs: Clear to Auscultation, Normal Respiratory Effort Cardiovascular: Regular Rate, Regular Rhythm GI/Abdominal Exam: Soft, Non-Tender, No Distention (Male) Exam: Deferred Back Exam: No: CVA Tenderness (L), CVA Tenderness (R) Extremities: No Pedal Edema Peripheral Pulses: 2+: Radial (L), Radial (R) Skin: Warm, Dry, Intact Neurological: No New Focal Deficit Psy/Mental Status: Alert, Normal Affect, Normal Mood - Problem List Review Problem List Initiated/Reviewed/Updated: Yes - Plan Plan:: Brief history 83 year old male was admitted from [facility] due to generalized poor appetite, early satiety, wt loss of ~15-20 lbs past 3 weeks. Patient does have T2 DM and admits to recent hyperglycemia. Recently has had a URI for several weeks with cough, he had no shortness of breath or fevers. No diarrhea or vomiting. Pertinent clinical information Left lower lobe abdominal pain 17.1 with 13.5 segs - Hgb is 12.5 CMP - glucose of 437, BUN - 26, INR low at 1.2. Chest xray - appears stable Primary hospital problems Urinary Tract infection/Leukocytosis Dehydration, Weight loss, unintentional T2DM, with hyperglycemia, uncontrolled, yesterday by infection Weakness Cholelithiasis incidental finding Chronic/stable problems Atrial fibrillation, persistent, chronic, CVR, [id number] score high, on coumadin INR low. Dilated cardiomyopathy, AICD defibrillator. HFpEF, monitor weight and fluid status carefully with ongoing hydration CAD
[2019-01-11] MEDS ORDERED: Insulin Detemir 100 Units/ML 3 ML Pen SUBCUT ONE ×2 (14:20→22:00)
[2019-01-11] MEDS ORDERED: Insulin Aspart 100 Units/ML 3 ML Pen SUBCUT ONE (14:20)
[2019-01-11] MEDS: Insulin Aspart 100 Units/ML 3 ML Pen SUBCUT SCH (17:57)
[2019-01-11] MEDS: cefTRIAXone 1 GM Vial IVPUSH SCH (18:12)
[2019-01-11] MEDS: Warfarin 5 MG Tab PO SCH (18:12)
[2019-01-11] MEDS ORDERED: Sodium Chloride 0.9% 10 ML Syringe FLUSH PRN (18:17)
[2019-01-11] MEDS ORDERED: Non-Formulary Medication 1 Each TOP SCH (21:00)
[2019-01-11] MEDS: Carbidopa/Levodopa 25-100 MG Tab.ER PO SCH (21:31)
[2019-01-11] MEDS: 20% Ketoprofen 12 GM, 3% Menthol 1.8 GM & 8% Trolamine Salicylate 46.2 GM TOP SCH ×3 (22:45)
[2019-01-12] MEDS: Insulin Aspart 100 Units/ML 3 ML Pen SUBCUT SCH ×3 (07:57→18:06)
[2019-01-12] MEDS: Tamsulosin 0.4 MG Cap.ER PO SCH (07:59)
[2019-01-12] MEDS: Sotalol 80 MG Tab PO SCH ×2 (07:59→20:58)
[2019-01-12] MEDS: Carvedilol 12.5 MG Tab PO SCH ×2 (07:59→20:59)
[2019-01-12] MEDS: Finasteride 5 MG Tab PO SCH (07:59)
[2019-01-12] MEDS: 20% Ketoprofen 12 GM, 3% Menthol 1.8 GM & 8% Trolamine Salicylate 46.2 GM TOP SCH ×6 (08:00→21:01)
--- NOTE | 2019-01-12 09:16 | PCM.PN ---
- General Info Date of Service: 01/12/19 Functional Status: Reports: Pain Controlled, Tolerating Diet, Ambulating, Urinating. Denies: New Symptoms - Review of Systems General: Denies: Fever, Weakness HEENT: Reports: No Symptoms Pulmonary: Reports: No Symptoms Cardiovascular: Reports: Dyspnea on Exertion Gastrointestinal: Reports: No Symptoms Genitourinary: Reports: No Symptoms Musculoskeletal: Reports: No Symptoms Skin: Reports: No Symptoms Neurological: Reports: No Symptoms Psychiatric: Reports: No Symptoms - Patient Data Vitals - Most Recent: Last Vital Signs Temp 97.6 F 01/12/19 06:45 Pulse 69 01/12/19 07:59 Resp 20 01/12/19 06:45 BP 140/64 01/12/19 07:59 Pulse Ox 94 L 01/12/19 06:45 Weight - Most Recent: 194 lb I&O - Last 24 Hours: Intake & Output 01/11/19 01/12/19 01/12/19 22:59 06:59 14:59 Intake Total 1090 1637 Output Total 500 400 Balance 590 1237 Lab Results Last 24 Hours: Laboratory Results - last 24 hr 01/11/19 01/11/19 01/11/19 Range/Units 07:10 14:29 17:52 WBC (5.00-10.00) 10^3/uL RBC (4.50-6.00) 10^6/uL Hgb (13.0-17.0) g/dL Hct (40.0-52.0) % MCV (82.0-92.0) fL MCH (27.0-31.0) pg MCHC (32.0-36.0) g/dL RDW (11.5-14.5) % Plt Count (150-400) 10^3/uL MPV (7.4-10.4) fL Immature Gran % (Auto) (0.0-5.0) % Neut % (Auto) (50.0-70.0) % Lymph % (Auto) (20.0-40.0) % [place] % (Auto) (2.0-8.0) % Eos % (Auto) (1.0-3.0) % Baso % (Auto) (0.0-1.0) % Immature Gran # (Auto) (0.00-0.50) 10^3/uL Neut # (Auto) (2.50-7.00) 10^3/uL Lymph # (Auto) (1.00-4.00) 10^3/uL [place] # (Auto) (0.10-0.80) 10^3/uL Eos # (Auto) (0.10-0.30) 10^3/uL Baso # (Auto) (0.00-0.10) 10^3/uL PT (8.9-11.4) SEC INR (0.9-1.1) POC Glucose 312 H 216 H (74-106) mg/dl Lactate Dehydrogenase 236 H (84-212) U/L 01/12/19 01/12/19 01/12/19 Range/Units 07:10 07:10 07:27 WBC 18.02 H (5.00-10.00) 10^3/uL RBC 3.96 L (4.50-6.00) 10^6/uL Hgb 11.6 L (13.0-17.0) g/dL Hct 36.0 L (40.0-52.0) % MCV 90.9 (82.0-92.0) fL MCH 29.3 (27.0-31.0) pg MCHC 32.2 (32.0-36.0) g/dL RDW 13.4 (11.5-14.5) % Plt Count 259 (150-400) 10^3/uL MPV 11.3 H (7.4-10.4) fL Immature Gran % (Auto) 0.2 (0.0-5.0) % Neut % (Auto) 84.5 H (50.0-70.0) % Lymph % (Auto) 10.2 L (20.0-40.0) % [place] % (Auto) 4.8 (2.0-8.0) % Eos % (Auto) 0.1 L (1.0-3.0) % Baso % (Auto) 0.2 (0.0-1.0) % Immature Gran # (Auto) 0.04 (0.00-0.50) 10^3/uL Neut # (Auto) 15.22 H (2.50-7.00) 10^3/uL Lymph # (Auto) 1.84 (1.00-4.00) 10^3/uL [place] # (Auto) 0.86 H (0.10-0.80) 10^3/uL Eos # (Auto) 0.02 L (0.10-0.30) 10^3/uL Baso # (Auto) 0.04 (0.00-0.10) 10^3/uL PT 14.5 H (8.9-11.4) SEC INR 1.4 H (0.9-1.1) POC Glucose 246 H (74-106) mg/dl Lactate Dehydrogenase (84-212) U/L Med Orders - Current: Current Medications Acetaminophen (Tylenol) 650 mg PO Q6H PRN PRN Reason: Pain Last Admin: 01/11/19 19:41 Dose: 650 mg Carbidopa/Levodopa (Sinemet Cr 25-100 Mg) 1 tab PO BEDTIME [facility] Last Admin: 01/11/19 21:31 Dose: 1 tab Carvedilol (Coreg) 25 mg PO BID [facility] Last Admin: 01/12/19 07:59 Dose: 25 mg Ceftriaxone Sodium (Rocephin) 1 gm IVPUSH Q24H [facility] Last Admin: 01/11/19 18:12 Dose: 1 gm Ketoprofen 12 gm/ Menthol 1.8 gm/ Trolamine Salicylate 46.2 gm 0 gm TOP BID [facility] Last Admin: 01/12/19 08:00 Dose: Not Given Finasteride (Proscar) 5 mg PO DAILY [facility] Last Admin: 01/12/19 07:59 Dose: 5 mg Sodium Chloride (Normal Saline) 1,000 mls @ 75 mls/hr IV ASDIRECTED [facility] Last Admin: 01/11/19 22:20 Dose: 75 mls/hr Insulin Aspart (Novolog) 0 unit SUBCUT TIDMEALS [facility]; Protocol Last Admin: 01/12/19 07:57 Dose: 4 units Sodium Chloride (Saline Flush) 10 ml FLUSH Q8HR PRN PRN Reason: TKO Sotalol HCl (Betapace) 80 mg PO BID [facility] Last Admin: 01/12/19 07:59 Dose: 80 mg Tamsulosin HCl (Flomax) 0.4 mg PO DAILY [facility] Last Admin: 01/12/19 07:59 Dose: 0.4 mg Warfarin Sodium (Coumadin) 2.5 mg PO MoFr@1800 [facility] Warfarin Sodium (Coumadin) 5 mg PO SuTuWeThSa@1800 [facility] Last Admin: 01/11/19 18:12 Dose: 5 mg Warfarin Sodium (Pharmacy To Dose - Warfarin) 1 dose PO ASDIRECTED [facility] Discontinued Medications Digoxin (Lanoxin) 125 mcg PO DAILY [facility] Furosemide (Lasix) 40 mg PO DAILY [facility] Sodium Chloride (Normal Saline) 750 mls @ 125 mls/hr IV ONETIME ONE Stop: 01/11/19 00:59 Last Admin: 01/10/19 19:21 Dose: 125 mls/hr Metronidazole 500 mg/ Premix 100 mls @ 100 mls/hr IV Q8H [facility] Last Admin: 01/10/19 19:28 Dose: 100 mls/hr Sodium Chloride (Normal Saline) 1,000 mls @ 100 mls/hr IV ASDIRECTED [facility] Sodium Chloride (Normal Saline) 1,000 mls @ 110 mls/hr IV ASDIRECTED [facility] Last Infusion: 01/11/19 17:00 Dose: 75 mls/hr Sodium Chloride (Normal Saline) 1,000 mls @ 500 mls/hr IV ASDIRECTED [facility] Stop: 01/10/19 21:45 Insulin Aspart (Novolog) 10 unit SUBCUT ONETIME ONE Stop: 01/10/19 18:50 Last Admin: 01/10/19 19:08 Dose: 10 units Insulin Aspart (Novolog) 5 unit SUBCUT ONETIME ONE Stop: 01/11/19 14:21 Last Admin: 01/11/19 15:07 Dose: 5 units Insulin Detemir (Levemir) 5 unit SUBCUT NOW ONE Stop: 01/10/19 22:16 Last Admin: 01/10/19 22:25 Dose: 5 units Insulin Detemir (Levemir) 20 unit SUBCUT ONETIME ONE Stop: 01/11/19 14:21 Last Admin: 01/11/19 15:08 Dose: 20 units Insulin Detemir (Levemir) 40 unit SUBCUT ONETIME ONE Stop: 01/11/19 22:01 Last Admin: 01/11/19 21:34 Dose: 40 units Lisinopril (Prinivil) 20 mg PO DAILY [facility] Terazosin HCl (Hytrin) 2 mg PO DAILY [facility] - Exam Quality Assessment: No: Supplemental Oxygen General: Alert, Oriented Neck: Supple Lungs: Clear to Auscultation, Normal Respiratory Effort Cardiovascular: Regular Rate, Regular Rhythm GI/Abdominal Exam: Soft (Male) Exam: Deferred Back Exam: No: CVA Tenderness (L), CVA Tenderness (R) Extremities: No: Pedal Edema Peripheral Pulses: 2+: Radial (L), Radial (R) Skin: Dry Psy/Mental Status: Alert, Normal Affect, Normal Mood - Problem List Review Problem List Initiated/Reviewed/Updated: Yes - My Orders Last 24 Hours: My Active Orders 01/11/19 13:38 Intake and Output [RC] 1400,2200,0600 01/11/19 13:45 Sodium Chloride 0.9% [Normal Saline] 1,000 ml IV ASDIRECTED 01/11/19 18:00 Insulin Aspart [NovoLOG] See Protocol SUBCUT TIDMEALS 01/11/19 18:17 Sodium Chloride 0.9% [Saline Flush] 10 ml FLUSH Q8HR PRN 01/11/19 21:00 Ketoprofen 12 gm Menthol 1.8 gm Trolamine Salicylate/Aloe Vera [Aspercreme 10%] 46.2 gm TOP BID 01/12/19 09:00 Finasteride [Proscar] 5 mg PO DAILY - Plan Plan:: Brief history (see scanned H&P) 83 year old male was admitted from [facility] due to generalized poor appetite, early satiety, wt loss of ~15-20 lbs past 3 weeks. Patient does have T2 DM and admits to recent hyperglycemia. Recently has had a URI for several weeks with cough, he had no shortness of breath or fevers. No diarrhea or vomiting. Pertinent clinical information Left lower lobe abdominal pain 17.1 with 13.5 segs - Hgb is 12.5 CMP - glucose of 437, BUN - 26, INR low at 1.2. Chest xray - appears stable Update, hypoglycemia episode overnight, now starting to tolerate his diet, no fever, good blood pressure patient feels good, no cough, no diaphoresis, no shortness of breath. Primary hospital problems Urinary Tract infection/Leukocytosis Dehydration, improving Weight loss, unintentional T2DM, overall uncontrolled however hypoglycemia last night. Was started on weekly GLP1 as o/p however patient yet to start this. Weakness, improving Cholelithiasis incidental finding Chronic/stable problems Atrial fibrillation, persistent, chronic, CVR, [id number] score high, on coumadin INR low but improving. Continue Coumadin Dilated cardiomyopathy, AICD defibrillator. HFpEF, monitor weight and fluid status carefully with ongoing hydration CAD, no chest pain Overall plan ESR, CRP today Change to low dose SS insulin Levemir 40 units bedtime tonight Start weekly Bydureon upon discharge anticipate discharge home tomorrow on PO abx as long as clinical condition continues to improve.
[2019-01-12] MEDS: Sodium Chloride 0.9% 1,000 ML IV SCH ×2 (10:48→23:47)
[2019-01-12] MEDS: cefTRIAXone 1 GM Vial IVPUSH SCH (18:06)
[2019-01-12] MEDS: Warfarin 5 MG Tab PO SCH (18:07)
[2019-01-12] MEDS: Carbidopa/Levodopa 25-100 MG Tab.ER PO SCH (20:58)
[2019-01-12] MEDS ORDERED: Insulin Detemir 100 Units/ML 3 ML Pen SUBCUT ONE (21:00)
[2019-01-13 07:01] VITALS: BP 129/71
[2019-01-13] MEDS: Insulin Aspart 100 Units/ML 3 ML Pen SUBCUT SCH (08:43)
[2019-01-13] MEDS: Tamsulosin 0.4 MG Cap.ER PO SCH (08:44)
[2019-01-13] MEDS: Finasteride 5 MG Tab PO SCH (08:44)
[2019-01-13] MEDS: Sotalol 80 MG Tab PO SCH (08:45)
[2019-01-13] MEDS: Carvedilol 12.5 MG Tab PO SCH (08:46)
[2019-01-13] MEDS ORDERED: Carvedilol 12.5 MG Tab ONE (08:50)
--- NOTE | 2019-01-13 09:33 | PCM.DCSUM1 ---
Discharge Summary - Discharge Data Discharge Date: 01/13/19 Discharge Disposition: Home, Self-Care 01 Condition: Good - Patient Summary/Data Complications: None - Patient Instructions Diet: Usual Diet as Tolerated Activity: As Tolerated Driving: May Drive Today Showering/Bathing: May Shower Notify Provider of: Fever Other/Special Instructions: Start taking Bydureon injections ONCE WEEKLY for your diabetes. Reduce your night time insulin to 60 units for now. - Discharge Plan *PRESCRIPTION DRUG MONITORING PROGRAM REVIEWED*: Not Applicable *COPY OF PRESCRIPTION DRUG MONITORING REPORT IN PATIENT YOLI: Not Applicable Prescriptions/Med Rec: Ciprofloxacin [Ciprofloxacin HCl] 500 mg PO BID #12 tab Home Medications: Home Meds Allopurinol [Zyloprim] 100 mg PO BEDTIME 12/14/16 [History] Calcium Carbonate/Vitamin D3 [Calcium 600 + Vit D 400 Softgl] 1 tab PO DAILY [History] Carbidopa/Levodopa [Carbidopa-Levo ER 25-100] 1 tab PO BEDTIME 12/14/16 [History ] Carvedilol 25 mg PO BID 12/14/16 [History] Cinnamon Bark [Cinnamon] 500 mg PO DAILY 12/14/16 [History] Digoxin 125 mcg PO DAILY 12/14/16 [History] Ferrous Sulfate 325 mg PO BEDTIME 12/14/16 [History] Fish Oil/Neopit-3 Fatty Acids [Fish Oil 1,000 MG] 1 gm PO DAILY 12/14/16 [History ] Furosemide 40 mg PO DAILY 12/14/16 [History] Gluc Duran/Msm/Magnesium/Vit C [Glucosamine Complex-MSM] 1 tab PO DAILY 12/14/16 [ History] Insulin Glarg,Human.Rec.Analog [LantUS Solostar] 80 units SQ BEDTIME 12/14/16 [ History] Lisinopril 20 mg PO DAILY 12/14/16 [History] Multivitamins w-Iron/Ca/FA/Min [Thera M Plus] 1 tab PO DAILY 12/14/16 [History] Simvastatin 20 mg PO BEDTIME 12/14/16 [History] Sotalol [Betapace] 80 mg PO BID 12/14/16 [History] Tamsulosin [Flomax] 0.8 mg PO DAILY 12/14/16 [History] Terazosin HCl [Terazosin] 2 mg PO DAILY 12/14/16 [History] Finasteride [Proscar] 5 mg PO DAILY 01/10/19 [History] Non-Formulary Medication [NF Drug] 1 applic TOP BID 01/10/19 [History] Warfarin Dosing [Coumadin Ask] 2.5 - 5 mg PO DAILY 01/10/19 [History] traMADol [Ultram] 50 mg PO Q12H PRN 01/10/19 [History] Ciprofloxacin [Ciprofloxacin HCl] 500 mg PO BID #12 tab 01/13/19 [Rx] Referrals: Jacob Cui, INSTRUMENT TESTER [Nurse Practitioner] - ([facility] next week) - Discharge Summary/Plan Comment DC Time >30 min.: Yes Discharge Summary/Plan Comment: Final diagnosis Urinary Tract infection/Leukocytosis Dehydration, improved Weight loss, unintentional T2DM, overall uncontrolled Weakness, improving Cholelithiasis incidental finding Diverticulosis Chronic/stable problems Atrial fibrillation, persistent, chronic, CVR, [id number] score high, on coumadin Dilated cardiomyopathy, AICD defibrillator. HFpEF, CAD Brief summary Salazar is a 83 year old male was admitted from [facility] due to generalized poor appetite, early satiety, wt loss of ~15-20 lbs past 3 weeks prior to admission. He also noticed significant elevation of blood glucose levels. He was placed on weekly GLP 1 a however has not started this yet. Prior to admission he had noted a upper respiratory infection for the last several weeks with a cough Recently has had a URI for several weeks with cough. He had complained about left lower quadrant abdominal pain in the was suspicion regarding diverticulitis over this was ruled out via CT scan. It elevated white count with urinalysis highly suspicious of urinary tract infection along with dehydration. He was admitted for IV antibiotics and fluids. Hospital Course Patient's hospital course went well, he did have elevated neutrophilia however this did trend down eventually prior to discharge. He only had a very small cough, no fever, never became hemodynamically unstable. He had elevated inflammatory markers. Chest x-ray appeared stable, he did have elevated significant glucose levels of 437 which required insulin adjustments additions. This was normalized prior to discharge. He did have low INR levels and he admitted not taking his Coumadin. He was restarted back on his Coumadin and his INR was 1.9 upon discharge. He did have an abdominal CT which showed no acute findings and no acute diverticulitis however he does have colonic diverticulosis. No urine culture was back up prior to discharge. 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 abdominal plain completely resolved early on on admission. C-reactive protein 4.0 Neutrophilia trending down Medication changes/adjustments upon discharge Decrease nighttime insulin from 80-60u Start Bydureon GLP 1a weekly Continue with Coumadin Follow-up [facility] next week early - Patient Data Vitals - Most Recent: Last Vital Signs Temp 98.4 F 01/13/19 07:00 Pulse 69 01/13/19 08:46 Resp 18 01/13/19 07:00 BP 122/62 01/13/19 08:46 Pulse Ox 95 01/13/19 07:50 Weight - Most Recent: 194 lb I&O - Last 24 hours: Intake & Output 01/12/19 01/13/19 01/13/19 22:59 06:59 14:59 Intake Total 675 1233 Output Total 500 Balance 675 733 Lab Results - Last 24 hrs: Laboratory Results - last 24 hr 01/12/19 01/12/19 01/12/19 Range/Units 07:10 07:10 11:07 WBC (5.00-10.00) 10^3/uL RBC (4.50-6.00) 10^6/uL Hgb (13.0-17.0) g/dL Hct (40.0-52.0) % MCV (82.0-92.0) fL MCH (27.0-31.0) pg MCHC (32.0-36.0) g/dL RDW (11.5-14.5) % Plt Count (150-400) 10^3/uL MPV (7.4-10.4) fL Immature Gran % (Auto) (0.0-5.0) % Neut % (Auto) (50.0-70.0) % Lymph % (Auto) (20.0-40.0) % Gulf % (Auto) (2.0-8.0) % Eos % (Auto) (1.0-3.0) % Baso % (Auto) (0.0-1.0) % Immature Gran # (Auto) (0.00-0.50) 10^3/uL Neut # (Auto) (2.50-7.00) 10^3/uL Lymph # (Auto) (1.00-4.00) 10^3/uL Gulf # (Auto) (0.10-0.80) 10^3/uL Eos # (Auto) (0.10-0.30) 10^3/uL Baso # (Auto) (0.00-0.10) 10^3/uL ESR 16 H (0-15) mm/hr PT (8.9-11.4) SEC INR (0.9-1.1) POC Glucose 248 H (74-106) mg/dl C-Reactive Protein 4.0 H (0.0-0.9) mg/dL 01/12/19 01/12/19 01/13/19 Range/Units 17:06 20:55 05:02 WBC (5.00-10.00) 10^3/uL RBC (4.50-6.00) 10^6/uL Hgb (13.0-17.0) g/dL Hct (40.0-52.0) % MCV (82.0-92.0) fL MCH (27.0-31.0) pg MCHC (32.0-36.0) g/dL RDW (11.5-14.5) % Plt Count (150-400) 10^3/uL MPV (7.4-10.4) fL Immature Gran % (Auto) (0.0-5.0) % Neut % (Auto) (50.0-70.0) % Lymph % (Auto) (20.0-40.0) % Gulf % (Auto) (2.0-8.0) % Eos % (Auto) (1.0-3.0) % Baso % (Auto) (0.0-1.0) % Immature Gran # (Auto) (0.00-0.50) 10^3/uL Neut # (Auto) (2.50-7.00) 10^3/uL Lymph # (Auto) (1.00-4.00) 10^3/uL Gulf # (Auto) (0.10-0.80) 10^3/uL Eos # (Auto) (0.10-0.30) 10^3/uL Baso # (Auto) (0.00-0.10) 10^3/uL ESR (0-15) mm/hr PT (8.9-11.4) SEC INR (0.9-1.1) POC Glucose 155 H 206 H 53 L (74-106) mg/dl C-Reactive Protein (0.0-0.9) mg/dL 01/13/19 01/13/19 01/13/19 Range/Units 06:45 07:05 07:05 WBC 14.08 H (5.00-10.00) 10^3/uL RBC 3.87 L (4.50-6.00) 10^6/uL Hgb 11.2 L (13.0-17.0) g/dL Hct 35.5 L (40.0-52.0) % MCV 91.7 (82.0-92.0) fL MCH 28.9 (27.0-31.0) pg MCHC 31.5 L (32.0-36.0) g/dL RDW 13.4 (11.5-14.5) % Plt Count 263 (150-400) 10^3/uL MPV 11.5 H (7.4-10.4) fL Immature Gran % (Auto) 0.1 (0.0-5.0) % Neut % (Auto) 75.6 H (50.0-70.0) % Lymph % (Auto) 15.4 L (20.0-40.0) % Gulf % (Auto) 7.9 (2.0-8.0) % Eos % (Auto) 0.6 L (1.0-3.0) % Baso % (Auto) 0.4 (0.0-1.0) % Immature Gran # (Auto) 0.02 (0.00-0.50) 10^3/uL Neut # (Auto) 10.65 H (2.50-7.00) 10^3/uL Lymph # (Auto) 2.17 (1.00-4.00) 10^3/uL Gulf # (Auto) 1.11 H (0.10-0.80) 10^3/uL Eos # (Auto) 0.08 L (0.10-0.30) 10^3/uL Baso # (Auto) 0.05 (0.00-0.10) 10^3/uL ESR (0-15) mm/hr PT 19.0 H D (8.9-11.4) SEC INR 1.9 H (0.9-1.1) POC Glucose 144 H (74-106) mg/dl C-Reactive Protein (0.0-0.9) mg/dL Med Orders - Current: Current Medications Acetaminophen (Tylenol) 650 mg PO Q6H PRN PRN Reason: Pain Last Admin: 01/11/19 19:41 Dose: 650 mg Carbidopa/Levodopa (Sinemet Cr 25-100 Mg) 1 tab PO BEDTIME [facility] Last Admin: 01/12/19 20:58 Dose: 1 tab Carvedilol (Coreg) 25 mg PO BID [facility] Last Admin: 01/13/19 08:46 Dose: 25 mg Ceftriaxone Sodium (Rocephin) 1 gm IVPUSH Q24H [facility] Last Admin: 01/12/19 18:06 Dose: 1 gm Ketoprofen 12 gm/ Menthol 1.8 gm/ Trolamine Salicylate 46.2 gm 0 gm TOP BID [facility] Last Admin: 01/12/19 21:01 Dose: Not Given Finasteride (Proscar) 5 mg PO DAILY [facility] Last Admin: 01/13/19 08:44 Dose: 5 mg Sodium Chloride (Normal Saline) 1,000 mls @ 75 mls/hr IV ASDIRECTED [facility] Last Admin: 01/12/19 23:47 Dose: 75 mls/hr Insulin Aspart (Novolog) 0 unit SUBCUT TIDMEALS [facility]; Protocol Last Admin: 01/13/19 08:43 Dose: Not Given Sodium Chloride (Saline Flush) 10 ml FLUSH Q8HR PRN PRN Reason: TKO Sotalol HCl (Betapace) 80 mg PO BID [facility] Last Admin: 01/13/19 08:45 Dose: 80 mg Tamsulosin HCl (Flomax) 0.4 mg PO DAILY [facility] Last Admin: 01/13/19 08:44 Dose: 0.4 mg Warfarin Sodium (Coumadin) 2.5 mg PO [email or web address] OLAYINKA Warfarin Sodium (Coumadin) 5 mg PO [email or web address]@1800 [facility] Last Admin: 01/12/19 18:07 Dose: 5 mg Warfarin Sodium (Pharmacy To Dose - Warfarin) 1 dose PO ASDIRECTED [facility] Discontinued Medications Carvedilol (Coreg) Confirm Administered Dose 12.5 mg .ROUTE .STK-MED ONE Stop: 01/13/19 08:51 Digoxin (Lanoxin) 125 mcg PO DAILY OLAYINKA Furosemide (Lasix) 40 mg PO DAILY [facility] Sodium Chloride (Normal Saline) 750 mls @ 125 mls/hr IV ONETIME ONE Stop: 01/11/19 00:59 Last Admin: 01/10/19 19:21 Dose: 125 mls/hr Metronidazole 500 mg/ Premix 100 mls @ 100 mls/hr IV Q8H OLAYINKA Last Admin: 01/10/19 19:28 Dose: 100 mls/hr Sodium Chloride (Normal Saline) 1,000 mls @ 100 mls/hr IV ASDIRECTED OLAYINKA Sodium Chloride (Normal Saline) 1,000 mls @ 110 mls/hr IV ASDIRECTED [facility] Last Infusion: 01/11/19 17:00 Dose: 75 mls/hr Sodium Chloride (Normal Saline) 1,000 mls @ 500 mls/hr IV ASDIRECTED [facility] Stop: 01/10/19 21:45 Insulin Aspart (Novolog) 10 unit SUBCUT ONETIME ONE Stop: 01/10/19 18:50 Last Admin: 01/10/19 19:08 Dose: 10 units Insulin Aspart (Novolog) 5 unit SUBCUT ONETIME ONE Stop: 01/11/19 14:21 Last Admin: 01/11/19 15:07 Dose: 5 units Insulin Detemir (Levemir) 5 unit SUBCUT NOW ONE Stop: 01/10/19 22:16 Last Admin: 01/10/19 22:25 Dose: 5 units Insulin Detemir (Levemir) 20 unit SUBCUT ONETIME ONE Stop: 01/11/19 14:21 Last Admin: 01/11/19 15:08 Dose: 20 units Insulin Detemir (Levemir) 40 unit SUBCUT ONETIME ONE Stop: 01/11/19 22:01 Last Admin: 01/11/19 21:34 Dose: 40 units Insulin Detemir (Levemir) 40 unit SUBCUT BEDTIME ONE Stop: 01/12/19 21:01 Last Admin: 01/12/19 20:59 Dose: 40 unit Lisinopril (Prinivil) 20 mg PO DAILY OLAYINKA Terazosin HCl (Hytrin) 2 mg PO DAILY O[facility]A
[2019-01-13] MEDS: 20% Ketoprofen 12 GM, 3% Menthol 1.8 GM & 8% Trolamine Salicylate 46.2 GM TOP SCH ×3 (11:32)
[2019-01-13] MEDS ORDERED: Warfarin 2.5 MG Tab PO SCH (18:00)
== END 2019-01-13 11:30 | disposition home or self-care (01) | DRG 392 ==
LOC: KA.MS 17:45
PROVIDERS: ADMIT Physician Assistant Medical; ATTEND Family Medicine
DX: K57.30 Diverticulosis of large intestine without perforation or abscess without bleeding (principal); N39.0 Urinary tract infection, site not specified; I50.22 Chronic systolic (congestive) heart failure; I42.0 Dilated cardiomyopathy; K80.20 Calculus of gallbladder without cholecystitis without obstruction; E11.65 Type 2 diabetes mellitus with hyperglycemia; I25.10 Atherosclerotic heart disease of native coronary artery without angina pectoris; G25.81 Restless legs syndrome; Z96.641 Presence of right artificial hip joint; I48.2 Chronic atrial fibrillation; I11.0 Hypertensive heart disease with heart failure; R63.4 Abnormal weight loss; E86.0 Dehydration; E11.649 Type 2 diabetes mellitus with hypoglycemia without coma; E78.5 Hyperlipidemia, unspecified; K21.9 Gastro-esophageal reflux disease without esophagitis; G20 Parkinson's disease; Z79.01 Long term (current) use of anticoagulants; Z95.810 Presence of automatic (implantable) cardiac defibrillator; Z79.4 Long term (current) use of insulin; Z98.41 Cataract extraction status, right eye; Z98.42 Cataract extraction status, left eye; Z90.89 Acquired absence of other organs; Z68.26 Body mass index [BMI] 26.0-26.9, adult; Z87.891 Personal history of nicotine dependence
CPT/HCPCS: 36415; 74176; 80053; 80162; 81001; 82962; 83615; 85025; 85610; 85651; 86140; 87086; A9270-GY; J0696; J1815-GY; J3490; J7030

== ENCOUNTER 2021-07-30 17:25 | Emergency (ER) | payer MEDICARE, OTHER ==
--- NOTE | 2021-07-30 17:31 | EDM.PDOC ---
ED HPI GENERAL MEDICAL PROBLEM - General Chief Complaint: Respiratory Problem Stated Complaint: shortness of breath Time Seen by Provider: 07/30/21 17:30 Source of Information: Reports: Patient, EMS History Limitations: Reports: No Limitations - History of Present Illness INITIAL COMMENTS - FREE TEXT/NARRATIVE: Salazar, 85-year-old male, presents by ambulance tonight with worsening shortness of breath, edema to his lower extremities, low-grade fever, with known/ confirmed Positive Covid 19 exposure to both his and [id number], all 3 residing in the same household. Both More and Estelle are scheduled for monoclonal antibody therapy tomorrow. Ambulance was advised that he did not seem himself and was mildly increased in his breathing difficulty throughout the day. Ambulance was told that he was backing out of the bathroom hallway after going to the bathroom. He appears appropriate to them when they arrived, exhibiting some shortness of breath symptoms and significant edema when his legs were in a dependent position. The improved just from elevation from his chair onto the ambulance cart for the transport to the hospital. He has been becoming more short of breath for the past week gradually but does not note any significant reason for it, continues with his 1 L home oxygen per nasal cannula. Salazar has been vaccinated but other household members have not vaccinated against COVID-19. He denies any change in bowel or bladder. States he has been taking medications as they are set up for him by nursing staff as well as family partic ipation. He is unsure of his meds and we are reviewing records for that. There is no advanced directive or living well in the system available to us. Onset: Gradual Duration: Day(s): Location: Reports: Chest - Related Data Allergies Allergy/AdvReac Type Severity Reaction Status Date / Time No Known Drug Allergies Allergy Cannot Verified 07/30/21 17:36 Remember Home Meds: Home Meds Allopurinol [Zyloprim] 100 mg PO BEDTIME 12/14/16 [History] Calcium Carbonate/Vitamin D3 [Calcium 600Mg-D3 400 Unit Sfgl] 1 tab PO DAILY 12/14/16 [History] Carbidopa/Levodopa [Carbidopa-Levo ER 25-100] 1 tab PO BEDTIME 12/14/16 [History] Digoxin 125 mcg PO DAILY 12/14/16 [History] Ferrous Sulfate 325 mg PO BEDTIME 12/14/16 [History] Furosemide 40 mg PO DAILY 12/14/16 [History] Insulin Glarg,Human.Rec.Analog [LantUS Solostar] 25 units SQ BEDTIME 12/14/16 [History] Sotalol [Betapace] 80 mg PO BID 12/14/16 [History] Tamsulosin [Flomax] 0.8 mg PO DAILY 12/14/16 [History] carvediloL [Carvedilol] 6.25 mg PO BID 12/14/16 [History] Finasteride [Proscar] 5 mg PO DAILY 01/10/19 [History] Non-Formulary Medication [NF Drug] 1 applic TOP BID 01/10/19 [History] Warfarin Dosing [Coumadin Ask] 2.5 - 5 mg PO DAILY 01/10/19 [History] Acetaminophen [Tylenol] 650 mg PO Q6HR PRN 07/30/21 [History] Sennosides/Docusate Sodium [Senna Plus 8.6-50 mg Tablet] 1 each PO BID 07/30/21 [History] Trolamine Salicylate/Aloe Vera [Aspercreme 10%] 35.4 gm TP BID PRN 07/30/21 [History] Past Medical History HEENT History: Reports: Cataract, Impaired Vision Cardiovascular History: Reports: Heart Failure, Pacemaker Respiratory History: Reports: SOB, Other (See Below) Other Respiratory History: uses 2 liters at night Gastrointestinal History: Reports: Chronic Diarrhea, Colon Polyp Musculoskeletal History: Reports: Arthritis, Gout Neurological History: Reports: Other (See Below) Other Neuro History: restless legs Endocrine/Metabolic History: Reports: IDDM Hematologic History: Reports: Blood Transfusion(s) - Infectious Disease History Infectious Disease History: Reports: Chicken Pox, Measles, Mumps - Past Surgical History HEENT Surgical History: Reports: Cataract Surgery, Tonsillectomy Cardiovascular Surgical History: Reports: Pacer GI Surgical History: Reports: Colonoscopy, Hernia Repair/Other Endocrine Surgical History: Reports: None Musculoskeletal Surgical History: Reports: Hip Replacement Social & Family History - Family History Family Medical History: No Pertinent Family History - Caffeine Use Caffeine Use: Reports: Coffee ED ROS GENERAL - Review of Systems Review Of Systems: Comprehensive ROS is negative, except as noted in HPI. ED EXAM, GENERAL - Physical Exam Exam: See Below Free Text/Narrative:: Salazar is alert to my present and for the most part oriented to his location and the situation of his health. He notes that family members are positive for Covid and that he had a rapid test resulted negative in the past 24 hours. There is no evidence of cyanosis with mild pallor. His respiratory rate is elevated in the mid 30s on 4 L nasal cannula with saturations of 92 to 94%. There is no involvement of the auditory canals or tympanic membranes. PERRLA with no icterus no injection. [place] moist mucous membranes with no erythema. Neck is soft supple I do not appreciate rigidity or JVD, but I am unable to lay him supine as he struggles to breathe. It is noted that boosting him for x-ray significantly worsened his breathing complaint and increased his rate lying him flat just to boost in the bed to be set more upright for the portable chest. Thorax is mildly diminished at the bases more so on the right side. There is a palpable pacemaker to the right chest wall. I do not appreciate any wheezes nor crackles. Cardiac is regular paced rhythm rate of 70 with a grade 1 systolic murmur best heard at the base. Abdomen is soft no tenderness bowel sounds are present. There is +23 edema to the feet +2 from the ankles and upward with no evidence of cyanosis. He is seated upright but his posture is somewhat kyphotic as he droops his head forward. rectal is deferred. Course - Vital Signs Last Recorded V/S: Last Vital Signs Temp 98.4 F 07/30/21 18:30 Pulse 70 07/30/21 19:01 Resp 20 07/30/21 19:01 BP 148/79 H 07/30/21 19:01 Pulse Ox 93 L 07/30/21 19:01 - Orders/Labs/Meds Orders: Active Orders 24 hr Category Date Time Status Peripheral IV Care [RC] . DIRECTED Care 07/30/21 17:47 Active Chest 1V Frontal [CR] Stat Exams 07/30/21 17:44 Ordered Sodium Chloride 0.9% [Saline Flush] Med 07/30/21 17:46 Active 10 ml FLUSH Q8HR PRN Peripheral IV Insertion Adult [OM.PC] Stat Oth 07/30/21 17:45 Ordered EKG 12 Lead [EK] Stat Ther 07/30/21 17:45 Ordered Medication Orders Sodium Chloride (Sodium Chloride 0.9% 10 Ml Syringe) 10 ml FLUSH Q8HR PRN PRN Reason: keep vein open Labs: Laboratory Tests 07/30/21 07/30/21 07/30/21 Range/Units 17:10 17:10 17:10 WBC 9.04 (5.00-10.00) 10^3/uL RBC 4.31 L (4.50-6.00) 10^6/uL Hgb 11.9 L (13.0-17.0) g/dL Hct 38.4 L (40.0-52.0) % MCV 89.1 (82.0-92.0) fL MCH 27.6 (27.0-31.0) pg MCHC 31.0 L (32.0-36.0) g/dL RDW 14.2 (11.5-14.5) % Plt Count 195 (150-400) 10^3/uL MPV 11.9 H (7.4-10.4) fL Immature Gran % (Auto) 0.3 (0.0-5.0) % Neut % (Auto) 71.1 H (50.0-70.0) % Lymph % (Auto) 16.0 L (20.0-40.0) % [place] % (Auto) 11.8 H (2.0-8.0) % Eos % (Auto) 0.4 L (1.0-3.0) % Baso % (Auto) 0.4 (0.0-1.0) % Neut # (Auto) 6.41 (2.50-7.00) 10^3/uL Lymph # (Auto) 1.45 (1.00-4.00) 10^3/uL Carson # (Auto) 1.07 H (0.10-0.80) 10^3/uL Eos # (Auto) 0.04 L (0.10-0.30) 10^3/uL Baso # (Auto) 0.04 (0.00-0.10) 10^3/uL Immature Gran # (Auto) 0.03 (0.00-0.50) 10^3/uL PT (9.2-11.2) SEC INR (0.9-1.1) D-Dimer, Quantitative 124 (<400) ng/mL Sodium 142 (136-145) mmol/L Potassium 4.1 (3.5-5.1) mmol/L Chloride 104 (98-107) mmol/L Carbon Dioxide 30.4 (21.0-32.0) mmol/L Anion Gap 11.7 (5-15) mmol/L BUN 21 H (7-18) mg/dL Creatinine 0.94 (0.51-1.17) mg/dL Est Cr Clr Drug Dosing 69.23 mL/min Estimated GFR (MDRD) > 60 mL/min Glucose 254 H (70-140) mg/dL Lactic Acid (0.4-2.0) mmol/L Calcium 9.5 (8.7-10.3) mg/dL Total Bilirubin 0.5 (0.2-1.0) mg/dL AST 30 (15-37) U/L ALT 43 (14-63) U/L Alkaline Phosphatase 90 (46-116) U/L Troponin I High Sens 46.500 (0-76.000) pg/mL B-Natriuretic Peptide 864 H (0-100) pg/mL Total Protein 7.3 (6.4-8.2) g/dL Albumin 3.19 L (3.40-5.00) g/dL Specimen Type Urine Color (YELLOW) Urine Appearance (CLEAR) Urine pH (5.0-9.0) Ur Specific [place] (1.005-1.030) Urine Protein (NEGATIVE) mg/dL Urine Glucose (UA) (NEGATIVE) mg/dL Urine Ketones (NEGATIVE) mg/dL Urine Occult Blood (NEGATIVE) Urine Nitrite (NEGATIVE) Urine Bilirubin (NEGATIVE) Urine Urobilinogen (0.2-1.0) E.U./dL Ur Leukocyte Esterase (NEGATIVE) Digoxin (0.90-2.00) ng/mL SARS-CoV-2 RNA (SAMIR) (NEGATIVE) 07/30/21 07/30/21 07/30/21 Range/Units 17:10 17:10 17:10 WBC (5.00-10.00) 10^3/uL RBC (4.50-6.00) 10^6/uL Hgb (13.0-17.0) g/dL Hct (40.0-52.0) % MCV (82.0-92.0) fL MCH (27.0-31.0) pg MCHC (32.0-36.0) g/dL RDW (11.5-14.5) % Plt Count (150-400) 10^3/uL MPV (7.4-10.4) fL Immature Gran % (Auto) (0.0-5.0) % Neut % (Auto) (50.0-70.0) % Lymph % (Auto) (20.0-40.0) % [place] % (Auto) (2.0-8.0) % Eos % (Auto) (1.0-3.0) % Baso % (Auto) (0.0-1.0) % Neut # (Auto) (2.50-7.00) 10^3/uL Lymph # (Auto) (1.00-4.00) 10^3/uL [place] # (Auto) (0.10-0.80) 10^3/uL Eos # (Auto) (0.10-0.30) 10^3/uL Baso # (Auto) (0.00-0.10) 10^3/uL Immature Gran # (Auto) (0.00-0.50) 10^3/uL PT 29.3 H (9.2-11.2) SEC INR 2.9 H (0.9-1.1) D-Dimer, Quantitative (<400) ng/mL Sodium (136-145) mmol/L Potassium (3.5-5.1) mmol/L Chloride (98-107) mmol/L Carbon Dioxide (21.0-32.0) mmol/L Anion Gap (5-15) mmol/L BUN (7-18) mg/dL Creatinine (0.51-1.17) mg/dL Est Cr Clr Drug Dosing mL/min Estimated GFR (MDRD) mL/min Glucose (70-140) mg/dL Lactic Acid 1.0 (0.4-2.0) mmol/L Calcium (8.7-10.3) mg/dL Total Bilirubin (0.2-1.0) mg/dL AST (15-37) U/L ALT (14-63) U/L Alkaline Phosphatase (46-116) U/L Troponin I High Sens (0-76.000) pg/mL B-Natriuretic Peptide (0-100) pg/mL Total Protein (6.4-8.2) g/dL Albumin (3.40-5.00) g/dL Specimen Type Urine Color (YELLOW) Urine Appearance (CLEAR) Urine pH (5.0-9.0) Ur Specific [place] (1.005-1.030) Urine Protein (NEGATIVE) mg/dL Urine Glucose (UA) (NEGATIVE) mg/dL Urine Ketones (NEGATIVE) mg/dL Urine Occult Blood (NEGATIVE) Urine Nitrite (NEGATIVE) Urine Bilirubin (NEGATIVE) Urine Urobilinogen (0.2-1.0) E.U./dL Ur Leukocyte Esterase (NEGATIVE) Digoxin 0.81 L (0.90-2.00) ng/mL SARS-CoV-2 RNA (SAMIR) (NEGATIVE) 07/30/21 07/30/21 Range/Units 17:45 17:48 WBC (5.00-10.00) 10^3/uL RBC (4.50-6.00) 10^6/uL Hgb (13.0-17.0) g/dL Hct (40.0-52.0) % MCV (82.0-92.0) fL MCH (27.0-31.0) pg MCHC (32.0-36.0) g/dL RDW (11.5-14.5) % Plt Count (150-400) 10^3/uL MPV (7.4-10.4) fL Immature Gran % (Auto) (0.0-5.0) % Neut % (Auto) (50.0-70.0) % Lymph % (Auto) (20.0-40.0) % [place] % (Auto) (2.0-8.0) % Eos % (Auto) (1.0-3.0) % Baso % (Auto) (0.0-1.0) % Neut # (Auto) (2.50-7.00) 10^3/uL Lymph # (Auto) (1.00-4.00) 10^3/uL [place] # (Auto) (0.10-0.80) 10^3/uL Eos # (Auto) (0.10-0.30) 10^3/uL Baso # (Auto) (0.00-0.10) 10^3/uL Immature Gran # (Auto) (0.00-0.50) 10^3/uL PT (9.2-11.2) SEC INR (0.9-1.1) D-Dimer, Quantitative (<400) ng/mL Sodium (136-145) mmol/L Potassium (3.5-5.1) mmol/L Chloride (98-107) mmol/L Carbon Dioxide (21.0-32.0) mmol/L Anion Gap (5-15) mmol/L BUN (7-18) mg/dL Creatinine (0.51-1.17) mg/dL Est Cr Clr Drug Dosing mL/min Estimated GFR (MDRD) mL/min Glucose (70-140) mg/dL Lactic Acid (0.4-2.0) mmol/L Calcium (8.7-10.3) mg/dL Total Bilirubin (0.2-1.0) mg/dL AST (15-37) U/L ALT (14-63) U/L Alkaline Phosphatase (46-116) U/L Troponin I High Sens (0-76.000) pg/mL B-Natriuretic Peptide (0-100) pg/mL Total Protein (6.4-8.2) g/dL Albumin (3.40-5.00) g/dL Specimen Type Urincc Urine Color Yellow (YELLOW) Urine Appearance Clear (CLEAR) Urine pH 5.5 (5.0-9.0) Ur Specific [place] 1.020 (1.005-1.030) Urine Protein Negative (NEGATIVE) mg/dL Urine Glucose (UA) Negative (NEGATIVE) mg/dL Urine Ketones Negative (NEGATIVE) mg/dL Urine Occult Blood Negative (NEGATIVE) Urine Nitrite Negative (NEGATIVE) Urine Bilirubin Negative (NEGATIVE) Urine Urobilinogen 0.2 (0.2-1.0) E.U./dL Ur Leukocyte Esterase Negative (NEGATIVE) Digoxin (0.90-2.00) ng/mL SARS-CoV-2 RNA (SAMIR) Positive H (NEGATIVE) Meds: Medications Generic Name Dose Route Start Last Admin Trade Name Freq PRN Reason Stop Dose Admin Sodium Chloride 10 ml 07/30/21 17:46 Sodium Chloride 0.9% 10 Ml Syringe FLUSH Q8HR PRN keep vein open Discontinued Medications Generic Name Dose Route Start Last Admin Trade Name Freq PRN Reason Stop Dose Admin Furosemide 20 mg 07/30/21 18:37 07/30/21 18:42 Furosemide 40 Mg/4 Ml Vial IVPUSH 07/30/21 18:38 20 mg NOW ONE Administration - Re-Assessments/Exams Free Text/Narrative Re-Assessment/Exam: 07/30/21 20:09 Phone call discussion was placed to Salazar's resident were his many and obtain many his daughter reside. I explained that Salazar does not wish to be admitted to the hospital and that he possibly would be a candidate for monoclonal antibodies if the decision can be made on when his symptoms started. Salazar stated to me it was 2 weeks, and More acknowledges it would be difficult to tell if he chronic cough and chronic oxygen use at home. I did discuss with Salazar that the elevation in his BNP shows that he needs more diuretic and it is likely that is his breathing issue in conjunction with the COVID-19. Admission to the hospital was discussed, with minimal criteria fond on testing tonight. He denies wanting to be hospitalized. He understands the factors involving this and does not wish to be hospitalized and understands that the ambulance ride home will be an [id number] expense in the $3-$400 range. He was given explicit instructions on the process and to contact his clinic in the morning to discuss monoclonal antibody infusion if he is within the 10-day window. 07/30/21 20:12 Departure - Departure Time of Disposition: 20:00 Disposition: Home, Self-Care 01 Condition: Fair Clinical Impression: CHF (congestive heart failure), Lab test positive for detection of COVID-19 virus, Elevated brain natriuretic peptide (BNP) level - Discharge Information *PRESCRIPTION DRUG MONITORING PROGRAM REVIEWED*: Not Applicable *COPY OF PRESCRIPTION DRUG MONITORING REPORT IN PATIENT YOLI: Not Applicable Instructions: COVID-19: What Your Test Results Mean - [facility] (02/17/2020), Heart Failure, Self-Care, [id number] Referrals: Jacob Cui NP [Nurse Practitioner] - Adri Sharma MD [Primary Care Provider] - Mariza Espinal NP [Nurse Practitioner] - Forms: ED Department Discharge Additional Instructions: Your testing tonight shows you are COVID-19 positive. Your heart failure number is up slightly from your baseline so you were given IV Lasix here tonight. You will need to increase your Lasix to 60 mg a day for the next 3 days. You may then return down to the 40 mg you had previously been taken. Continue all your medications as directed other than the change in your Lasix. Contact your clinic tomorrow to discuss with them to see if you are a candidate for antibody infusion as they would likely have a date of your exposure/symptoms as they already have tested you once. Make sure to call the clinic right away in the morning to advise them of your positive test and the need to discuss monoclonal antibody infusion with your current oxygen therapy. Sepsis Event Note (ED) - Focused Exam Vital Signs: Vital Signs Temp Pulse Resp BP Pulse Ox 07/30/21 19:01 70 20 148/79 H 93 L 07/30/21 18:30 98.4 F 70 24 H 145/75 H 95 07/30/21 18:00 70 35 H 143/75 H 97 07/30/21 17:37 98.5 F 70 35 H 143/73 H 97 - Problem List & Annotations (1) Lab test positive for detection of COVID-19 virus SNOMED Code(s): 1501933301735305 Code(s): U07.1 - COVID-19 Status: Acute Priority: High Current Visit: Yes (2) Elevated brain natriuretic peptide (BNP) level SNOMED Code(s): 348113436, 147497998 Code(s): R79.89 - OTHER SPECIFIED ABNORMAL FINDINGS OF BLOOD CHEMISTRY Status: Acute Priority: High Current Visit: Yes (3) CHF (congestive heart failure) SNOMED Code(s): 51911751 Code(s): I50.9 - HEART FAILURE, UNSPECIFIED Status: Chronic Priority: High Current Visit: Yes (4) SOB (shortness of breath) SNOMED Code(s): 108694336 Code(s): R06.02 - SHORTNESS OF BREATH Status: Chronic Priority: Medium Current Visit: No - Problem List Review Problem List Initiated/Reviewed/Updated: Yes - My Orders Last 24 Hours: My Active Orders 07/30/21 17:44 Chest 1V Frontal [CR] Stat 07/30/21 17:45 Peripheral IV Insertion Adult [OM.PC] Stat EKG 12 Lead [EK] Stat 07/30/21 17:46 Sodium Chloride 0.9% [Saline Flush] 10 ml FLUSH Q8HR PRN 07/30/21 17:47 Peripheral IV Care [RC] . DIRECTED - Assessment/Plan Last 24 Hours: My Active Orders 07/30/21 17:44 Chest 1V Frontal [CR] Stat 07/30/21 17:45 Peripheral IV Insertion Adult [OM.PC] Stat EKG 12 Lead [EK] Stat 07/30/21 17:46 Sodium Chloride 0.9% [Saline Flush] 10 ml FLUSH Q8HR PRN 07/30/21 17:47 Peripheral IV Care [RC] . DIRECTED Plan: Your testing tonight shows you are COVID-19 positive. Your heart failure number is up slightly from your baseline so you were given IV Lasix here tonight. You will need to increase your Lasix to 60 mg a day for the next 3 days. You may then return down to the 40 mg you had previously been taken. Continue all your medications as directed other than the change in your Lasix. Contact your clinic tomorrow to discuss with them to see if you are a candidate for antibody infusion as they would likely have a date of your exposure/symptoms as they already have tested you once. Make sure to call the clinic right away in the morning to advise them of your positive test and the need to discuss monoclonal antibody infusion with your current oxygen therapy.
[2021-07-30 17:43] VITALS: PULSE 70
[2021-07-30] MEDS ORDERED: Sodium Chloride 0.9% 10 ML Syringe FLUSH PRN (17:46)
[2021-07-30 18:22] LABS: ANION GAP 11.7 mmol/L (5-15); CHLORIDE,CL 104 mmol/L (98-107); SODIUM,NA 142 mmol/L (136-145)
[2021-07-30] MEDS: Furosemide 40 MG/4 ML VIAL IVPUSH ONE (18:42)
[2021-07-30 20:11] VITALS: BP 141/73
== END 2021-07-30 20:25 | disposition home or self-care (01) ==
LOC: KA.ED 17:25
DX: U07.1 COVID-19 (principal); R79.89 Other specified abnormal findings of blood chemistry; I50.9 Heart failure, unspecified; M10.9 Gout, unspecified; E11.9 Type 2 diabetes mellitus without complications; Z79.4 Long term (current) use of insulin; Z79.01 Long term (current) use of anticoagulants; Z79.899 Other long term (current) drug therapy
CPT/HCPCS: 36415; 71045; 80053; 80162; 81003; 83605; 83880; 84484; 85025; 85379; 85610; 96374; 99284; 99285-25; J1940; U0002

== ENCOUNTER 2021-08-22 15:44 | Inpatient (IN) | payer MEDICARE, OTHER ==
[2021-08-22] MEDS ORDERED: Ondansetron 4 MG Tab.DIS PO PRN (16:48)
[2021-08-22] MEDS ORDERED: Sodium Chloride 0.9% 10 ML Syringe FLUSH PRN (16:48)
[2021-08-22] MEDS ORDERED: Furosemide 40 MG/4 ML VIAL IVPUSH ONE (17:08)
[2021-08-22] MEDS ORDERED: [UNRECOGNIZED DRUG - REMARK] PO SCH (17:15)
[2021-08-22] MEDS: Docusate Sodium 100 MG Cap PO SCH (17:15)
[2021-08-22] MEDS: Sotalol 80 MG Tab PO SCH (17:37)
[2021-08-22] MEDS: Magnesium Hydroxide 400 MG/5 ML Susp 30 ML Cup PO SCH (17:37)
--- NOTE | 2021-08-22 17:37 | PCM.HP.2 ---
H&P History of Present Illness - General Date of Service: 08/22/21 Admit Problem/Dx: Admission Diagnosis/Problem Admission Diagnosis/Problem CHF, Congestive heart failure Source of Information: Patient, Family, Old Records - Related Data Allergies/Adverse Reactions: Allergies Allergy/AdvReac Type Severity Reaction Status Date / Time No Known Drug Allergies Allergy Cannot Verified 07/30/21 17:36 Remember Home Medications: Home Meds Allopurinol [Zyloprim] 100 mg PO BEDTIME 12/14/16 [History] Calcium Carbonate/Vitamin D3 [Calcium 600Mg-D3 400 Unit Sfgl] 1 tab PO DAILY 12/14/16 [History] Carbidopa/Levodopa [Carbidopa-Levo ER 25-100] 1 tab PO BEDTIME 12/14/16 [History] Digoxin 125 mcg PO DAILY 12/14/16 [History] Ferrous Sulfate 325 mg PO BEDTIME 12/14/16 [History] Furosemide 40 mg PO DAILY 12/14/16 [History] Insulin Glarg,Human.Rec.Analog [LantUS Solostar] 45 units SQ BEDTIME 12/14/16 [History] Sotalol [Betapace] 80 mg PO Q12HR 12/14/16 [History] Tamsulosin [Flomax] 0.8 mg PO BEDTIME 12/14/16 [History] Finasteride [Proscar] 5 mg PO DAILY 01/10/19 [History] Warfarin Dosing [Coumadin Ask] 2.5 - 5 mg PO DAILY 01/10/19 [History] Acetaminophen [Tylenol] 650 mg PO Q6HR PRN 07/30/21 [History] Sennosides/Docusate Sodium [Senna Plus 8.6-50 mg Tablet] 1 each PO BID PRN 07/30/21 [History] Dulaglutide [Trulicity] 0.5 mg SQ WEEKLY 08/22/21 [History] Terazosin HCl [Terazosin] 2 mg PO BEDTIME 08/22/21 [History] carvediloL [Carvedilol] 3.125 mg PO BIDMEALS 08/22/21 [History] Past Medical History HEENT History: Reports: Cataract, Impaired Vision Cardiovascular History: Reports: Heart Failure, Pacemaker Respiratory History: Reports: SOB, Other (See Below) Other Respiratory History: uses 2 liters at night Gastrointestinal History: Reports: Chronic Diarrhea, Colon Polyp Genitourinary History: Reports: BPH Musculoskeletal History: Reports: Arthritis, Gout Neurological History: Reports: Other (See Below) Other Neuro History: restless legs Psychiatric History: Reports: None Endocrine/Metabolic History: Reports: Diabetes, Type II, IDDM Hematologic History: Reports: Blood Transfusion(s) Oncologic (Cancer) History: Reports: None - Infectious Disease History Infectious Disease History: Reports: Chicken Pox, Measles, Mumps - Past Surgical History HEENT Surgical History: Reports: Cataract Surgery, Tonsillectomy Cardiovascular Surgical History: Reports: Pacer Respiratory Surgical History: Reports: None GI Surgical History: Reports: Colonoscopy, Hernia Repair/Other Endocrine Surgical History: Reports: None Neurological Surgical History: Reports: None Musculoskeletal Surgical History: Reports: Hip Replacement Social & Family History - Family History Family Medical History: No Pertinent Family History - Tobacco Use Tobacco Use Status *Q: Never Tobacco User Second Hand Smoke Exposure: No - Caffeine Use Caffeine Use: Reports: Coffee, Soda - Recreational Drug Use Recreational Drug Use: No H&P Review of Systems - Review of Systems: Review Of Systems: See Below General: Reports: Weakness, Fatigue, Decreased Appetite, Weight Gain (abut 3 lbs wt gain ). Denies: Night Sweats, Diaphoresis, Weight Loss Pulmonary: Reports: Shortness of Breath. Denies: Cough, Sputum, Hemoptysis Cardiovascular: Reports: PND, Edema. Denies: Chest Pain, Palpitations, Dyspnea on Exertion, Lightheadedness, Blood Pressure Problem Gastrointestinal: Reports: Constipation (bm 2 days ago ), Other (Complains of abdominal fullness). Denies: Abdominal Pain, Black Stool, Bloody Stool, Difficulty Swallowing, Nausea, Stool Incontinence, Vomiting Musculoskeletal: Reports: Muscle Stiffness. Denies: Back Pain Skin: Reports: Pallor. Denies: Cyanosis, Jaundice, Dryness, Wound Psychiatric: Reports: Other (Flat affect,) Neurological: Reports: Pre-Existing Deficit, Tremors, Difficulty Walking, Weakness, Gait Disturbance. Denies: Confusion, Paresthesia, Change in Speech Hematologic/Lymphatic: Reports: Easy Bleeding, Easy Bruising Immunologic: Reports: No Symptoms Exam - Exam Exam: See Below - Vital Signs Vital Signs: Last Vital Signs Temp 97.1 F 08/22/21 16:48 Pulse 71 08/22/21 16:48 Resp 24 H 08/22/21 16:48 BP 137/66 08/22/21 16:48 Pulse Ox 94 L 08/22/21 16:48 Weight: 184 lb 4.8 oz - Exam Quality Assessment: Supplemental Oxygen (Wears Oxygen 2 liters at night at home. ), DVT Prophylaxis (coumadin ) HEENT: Conjunctiva Clear Neck: Supple Lungs: Rales Cardiovascular: Irregular Rhythm GI/Abdominal Exam: Soft, Non-Tender, No Distention, Abnormal Bowel Sounds. No: Normal Bowel Sounds, Guarding, Rigid, Mass, Hepatomegaly (Male) Exam: Deferred Rectal (Males) Exam: Deferred Back Exam: No: CVA Tenderness (L), CVA Tenderness (R) Extremities: No Pedal Edema, Other (Edema in his feet) Peripheral Pulses: 2+: Radial (L), Radial (R) Skin: Warm, Dry, Intact Neurological: Normal Tone, Hyporeflexia, Other (Laconic in speech). No: Normal Gait, Focal Deficit Neuro Extensive - Motor, Sensory, Reflexes: Abnormal Gait, Tremor. No: Tongue Deviation (L), Tongue Deviation (R), Pronator Drift (R), Pronator Drift (L) Psychiatric: Alert, Depressed (Affect is very flat laconic) Sepsis Event Note - Evaluation Sepsis Screening Result: No Definite Risk - Focused Exam Vital Signs: Vital Signs Temp Pulse Resp BP Pulse Ox 08/22/21 16:48 97.1 F 71 24 H 137/66 94 L Problem List Initiated/Reviewed/Updated: Yes Orders Last 24hrs: Active Orders 24 hr Category Date Time Status Patient Status [ADT] Urgent ADT 08/22/21 16:48 Active Height and Weight [RC] UPON Care 08/22/21 16:48 Active Intake and Output [RC] 1400,2200,0600 Care 08/22/21 16:50 Active May Shower [RC] DAILY Care 08/22/21 16:48 Active Notify Provider Vital Signs [RC] .PRN Care 08/22/21 16:50 Active Oxygen Therapy [RC] .PRN Care 08/22/21 16:48 Active Up With Assistance [RC] DAILY Care 08/22/21 16:48 Active Up to Chair [RC] DAILY Care 08/22/21 16:48 Active VTE/DVT Education [RC] DAILY Care 08/22/21 16:48 Active Vital Signs [RC] 07,15,23 Care 08/22/21 16:48 Active Consult to Case Management/Juvenile Counselor [CONS] Cons 08/22/21 16:48 Active Routine 2 Gram Sodium Diet [DIET] Diet 08/22/21 Dinner Active BASIC METABOLIC PANEL,BMP [CHEM] AM Lab 08/23/21 05:11 Ordered Acetaminophen [TylenoL] Med 08/22/21 16:54 Ordered 650 mg PO Q6HR PRN Calcium Carbonate/Vitamin D3 [Calcium 600Mg-D3 400 Unit Med 08/23/21 09:00 Ordered Sfgl] 1 tab PO DAILY Carbidopa/Levodopa [Sinemet Cr 25-100 mg] Med 08/22/21 21:00 Ordered 1 tab PO BEDTIME Digoxin [Lanoxin] Med 08/23/21 09:00 Ordered 125 mcg PO DAILY Docusate Sodium [Colace] Med 08/22/21 09:00 Active 100 mg PO DAILY Docusate Sodium/Sennosides [Senna Plus] Med 08/22/21 17:00 Ordered DOSE tab PO BID PRN Finasteride [Proscar] Med 08/23/21 09:00 Ordered 5 mg PO DAILY Insulin Glarg,Human.Rec.Analog Med 08/22/21 21:00 Ordered 45 units SQ BEDTIME Magnesium Hydroxide [Milk of Magnesia] Med 08/22/21 17:15 Ordered 30 ml PO DAILY Ondansetron [Zofran ODT] Med 08/22/21 16:48 Active 4 mg PO Q4H PRN Sodium Chloride 0.9% [Saline Flush] Med 08/22/21 16:48 Active 10 ml FLUSH Q8HR PRN Sotalol [Betapace] Med 08/22/21 17:00 Ordered 80 mg PO Q12HR Tamsulosin [Flomax] Med 08/22/21 21:00 Ordered 0.8 mg PO BEDTIME Terazosin HCl Med 08/22/21 21:00 Ordered 2 mg PO BEDTIME Warfarin Dosing Med 08/22/21 17:15 Ordered 2.5 - 5 mg PO DAILY allopurinoL [Zyloprim] Med 08/22/21 21:00 Ordered 100 mg PO BEDTIME carvediloL [Carvedilol] Med 08/22/21 18:00 Ordered 3.125 mg PO BIDMEALS Saline Lock Insert [OM.PC] Routine Oth 08/22/21 16:48 Ordered Resuscitation Status Routine Resus Stat 08/22/21 16:48 Ordered Medication Orders Acetaminophen (Acetaminophen 325 Mg Tab) 650 mg PO Q6HR PRN PRN Reason: Pain Allopurinol (Allopurinol 100 Mg Tab) 100 mg PO BEDTIME [facility] Carbidopa/Levodopa (Carbidopa/Levodopa 25-100 Mg Tab.Er) 1 tab PO BEDTIME [facility] Digoxin (Digoxin 125 Mcg Tab) 125 mcg PO DAILY [facility] Docusate Sodium (Docusate Sodium 100 Mg Cap) 100 mg PO DAILY [facility] Finasteride (Finasteride 5 Mg Tab) 5 mg PO DAILY [facility] Magnesium Hydroxide (Magnesium Hydroxide 400 Mg/5 Ml Susp 30 Ml Cup) 30 ml PO DAILY [facility] Non-Formulary Medication (Calcium Carbonate/Vitamin D3 [Calcium 600mg-D3 400 Unit Sfgl]) 1 tab PO DAILY [facility] Non-Formulary Medication (Carvedilol [Carvedilol]) 3.125 mg PO BIDMEALS [facility] Non-Formulary Medication (Insulin Glarg,Human.Rec.Analog) 45 units SQ BEDTIME [facility] Non-Formulary Medication (Terazosin Hcl) 2 mg PO BEDTIME [facility] Non-Formulary Medication (Warfarin Dosing) 2.5 - 5 mg PO DAILY [facility] Ondansetron HCl (Ondansetron 4 Mg Tab.Dis) 4 mg PO Q4H PRN PRN Reason: nausea, able to take PO Senna/Docusate Sodium (Docusate Sodium/Sennosides 50-8.6 Mg Tab) tab PO BID PRN PRN Reason: Constipation Sodium Chloride (Sodium Chloride 0.9% 10 Ml Syringe) 10 ml FLUSH Q8HR PRN PRN Reason: keep vein open Sotalol HCl (Sotalol 80 Mg Tab) 80 mg PO Q12HR [facility] Tamsulosin HCl (Tamsulosin 0.4 Mg Cap.Er) 0.8 mg PO BEDTIME [facility] Assessment/Plan Comment:: History of present illness Ryan is an 85-year-old gentleman that has transferred his care from [facility] to [facility] and is here today brought in by family member in a wheelchair due to shortness of breath, weakness with slight fluid overload. Patient does have heart failure, atrial fibrillation with pacemaker. He states that they can no longer care for him and he has been getting weaker over the past months however of the past week he has poor appetite, slight gain in weight of 3 to 4 pounds, with worsening shortness of breath with inability to to ambulate is good. Recently had his furosemide increased back to his baseline of 40 mg daily. WT 175 lbs Sep however 185 past 2 months. Primary hospital problems --HFpEF; acute on chronic, mild fluid overload, ECHO: --Fluid overload, mild, --Weakness, profound --Suspect Gastroparesis --Failure to thrive, Chronic conditions Atrial Fib, chronic, AICD, [id number]: 4, Coumadin, INR daily, Rx to manage, Dilated cardiomyopathy, Sotalol (avoid albuterol to pervent arrythmias) HTN, optimal HLD, Statin T2DM, controlled Sleep apnea Gout, allopurinol Restless legs syndrome BPH with hx of urinary retention FEN: PO fluids (no restrictions for now) K+ wnl, low Na+ diet PPX: On coumadin Code: DNR/DNI Disposition/overall plan --Patient meets INPT qualification for diuresing, monitoring of electrolytes --Strict daily weights and I&O's --Furosemide IVP x1 now --SS consult --bladder scan x1 after next void, post results, call Jacob if >300mL - Mortality Measure Prognosis:: Poor
[2021-08-22] MEDS: Carvedilol 6.25 MG Tab PO SCH (17:38)
[2021-08-22] MEDS ORDERED: Warfarin 2.5 MG Tab PO ONE (18:15)
[2021-08-22] MEDS: Insulin Glargine,Hum.Rec.Anlog 100 UNIT/ML 3 ML Pen SUBCUT SCH (21:14)
[2021-08-22] MEDS: Allopurinol 100 MG Tab PO SCH (21:15)
[2021-08-22] MEDS: Carbidopa/Levodopa 25-100 MG Tab.ER PO SCH (21:15)
[2021-08-22] MEDS: Terazosin 1 MG Cap PO SCH (21:16)
[2021-08-22] MEDS: Tamsulosin 0.4 MG Cap.ER PO SCH (21:16)
[2021-08-23] MEDS: Sotalol 80 MG Tab PO SCH ×2 (04:53→17:11)
[2021-08-23 07:42] LABS: ANION GAP 8.4 mmol/L (5-15); CHLORIDE,CL 105 mmol/L (98-107); SODIUM,NA 143 mmol/L (136-145)
[2021-08-23] MEDS: Carvedilol 6.25 MG Tab PO SCH ×2 (08:35→17:11)
[2021-08-23] MEDS: Magnesium Hydroxide 400 MG/5 ML Susp 30 ML Cup PO SCH (08:35)
[2021-08-23] MEDS: Finasteride 5 MG Tab PO SCH (08:35)
[2021-08-23] MEDS: Digoxin 125 MCG Tab PO SCH (08:36)
[2021-08-23] MEDS: Docusate Sodium 100 MG Cap PO SCH (08:36)
[2021-08-23] MEDS: Calcium Citrate/Vitamin D3 315 MG-250 Unit Tab PO SCH (08:36)
[2021-08-23] MEDS ORDERED: Warfarin 5 MG Tab PO ONE (18:00)
--- NOTE | 2021-08-23 20:22 | PCM.PN ---
- General Info Date of Service: 08/23/21 Functional Status: Reports: Pain Controlled - Review of Systems General: Reports: Weakness, Fatigue HEENT: Reports: No Symptoms Pulmonary: Denies: Shortness of Breath, Cough, Sputum, Wheezing Cardiovascular: Denies: Chest Pain, Palpitations, Orthopnea, PND, Edema, Lig htheadedness Gastrointestinal: Reports: No Symptoms Genitourinary: Reports: No Symptoms Musculoskeletal: Reports: No Symptoms Skin: Reports: No Symptoms Neurological: Denies: Confusion Psychiatric: Denies: Confusion - Patient Data Vitals - Most Recent: Last Vital Signs Temp 97.3 F 08/23/21 15:00 Pulse 69 08/23/21 17:11 Resp 24 H 08/23/21 15:00 BP 133/79 08/23/21 17:11 Pulse Ox 98 08/23/21 15:00 Weight - Most Recent: 184 lb 9.6 oz I&O - Last 24 Hours: Intake & Output 08/23/21 08/23/21 08/23/21 06:59 14:59 22:59 Intake Total 200 550 Output Total 475 Balance -275 550 Lab Results Last 24 Hours: Laboratory Results - last 24 hr 08/22/21 08/23/21 08/23/21 Range/Units 21:09 07:05 07:45 INR 1.6 H (0.9-1.1) Sodium 143 (136-145) mmol/L Potassium 3.5 (3.5-5.1) mmol/L Chloride 105 (98-107) mmol/L Carbon Dioxide 33.1 H (21.0-32.0) mmol/L Anion Gap 8.4 (5-15) mmol/L BUN 18 (7-18) mg/dL Creatinine 0.90 (0.51-1.17) mg/dL Est Cr Clr Drug Dosing 66.24 mL/min Estimated GFR (MDRD) > 60 mL/min Glucose 175 H (70-140) mg/dL POC Glucose 291 H (70-140) mg/dL Calcium 8.9 (8.7-10.3) mg/dL 08/23/21 Range/Units 17:33 INR (0.9-1.1) Sodium (136-145) mmol/L Potassium (3.5-5.1) mmol/L Chloride (98-107) mmol/L Carbon Dioxide (21.0-32.0) mmol/L Anion Gap (5-15) mmol/L BUN (7-18) mg/dL Creatinine (0.51-1.17) mg/dL Est Cr Clr Drug Dosing mL/min Estimated GFR (MDRD) mL/min Glucose (70-140) mg/dL POC Glucose 223 H (70-140) mg/dL Calcium (8.7-10.3) mg/dL Med Orders - Current: Current Medications Acetaminophen (Acetaminophen 325 Mg Tab) 650 mg PO Q6HR PRN PRN Reason: Pain Allopurinol (Allopurinol 100 Mg Tab) 100 mg PO BEDTIME [facility] Last Admin: 08/22/21 21:15 Dose: 100 mg Documented by: Calcium Citrate (Calcium Citrate/Vitamin D3 315 Mg-250 Unit Tab) 1 tab PO DAILY [facility] Last Admin: 08/23/21 08:36 Dose: 1 tab Documented by: Carbidopa/Levodopa (Carbidopa/Levodopa 25-100 Mg Tab.Er) 1 tab PO BEDTIME [facility] Last Admin: 08/22/21 21:15 Dose: 1 tab Documented by: Carvedilol (Carvedilol 6.25 Mg Tab) 3.125 mg PO BIDMEALS [facility] Last Admin: 08/23/21 17:11 Dose: 3.125 mg Documented by: Digoxin (Digoxin 125 Mcg Tab) 125 mcg PO DAILY [facility] Last Admin: 08/23/21 08:36 Dose: 125 mcg Documented by: Docusate Sodium (Docusate Sodium 100 Mg Cap) 100 mg PO DAILY [facility] Last Admin: 08/23/21 08:36 Dose: 100 mg Documented by: Finasteride (Finasteride 5 Mg Tab) 5 mg PO DAILY [facility] Last Admin: 08/23/21 08:35 Dose: 5 mg Documented by: Insulin Glargine (Insulin Glargine,Hum.Rec.Anlog 100 Unit/Ml 3 Ml Pen) 45 unit SUBCUT BEDTIME [facility] Last Admin: 08/22/21 21:14 Dose: 45 units Documented by: Magnesium Hydroxide (Magnesium Hydroxide 400 Mg/5 Ml Susp 30 Ml Cup) 30 ml PO DAILY [facility] Last Admin: 08/23/21 08:35 Dose: 30 ml Documented by: Non-Formulary Medication (Warfarin Dosing) 2.5 - 5 mg PO DAILY [facility] Ondansetron HCl (Ondansetron 4 Mg Tab.Dis) 4 mg PO Q4H PRN PRN Reason: nausea, able to take PO Senna/Docusate Sodium (Docusate Sodium/Sennosides 50-8.6 Mg Tab) 1 tab PO BID PRN PRN Reason: Constipation Sodium Chloride (Sodium Chloride 0.9% 10 Ml Syringe) 10 ml FLUSH Q8HR PRN PRN Reason: keep vein open Sotalol HCl (Sotalol 80 Mg Tab) 80 mg PO Q12H [facility] Last Admin: 08/23/21 17:11 Dose: 80 mg Documented by: Tamsulosin HCl (Tamsulosin 0.4 Mg Cap.Er) 0.8 mg PO BEDTIME [facility] Last Admin: 08/22/21 21:16 Dose: 0.8 mg Documented by: Terazosin HCl (Terazosin 1 Mg Cap) 2 mg PO BEDTIME [facility] Last Admin: 08/22/21 21:16 Dose: 2 mg Documented by: Discontinued Medications Furosemide (Furosemide 40 Mg/4 Ml Vial) 30 mg IVPUSH DAILY ONE Stop: 08/22/21 17:09 Last Admin: 08/22/21 17:38 Dose: 30 mg Documented by: Warfarin Sodium (Warfarin 2.5 Mg Tab) 2.5 mg PO NOW ONE Stop: 08/22/21 18:16 Last Admin: 08/22/21 18:25 Dose: 2.5 mg Documented by: Warfarin Sodium (Warfarin 5 Mg Tab) 5 mg PO ONETIME ONE Stop: 08/23/21 18:01 Last Admin: 08/23/21 17:11 Dose: 5 mg Documented by: - Exam Quality Assessment: No: Supplemental Oxygen General: Alert, Oriented, Cooperative, No Acute Distress Neck: Supple. No: JVD Lungs: Clear to Auscultation, Normal Respiratory Effort. No: Crackles, Rales, Wheezing Cardiovascular: No: Bradycardia, Tachycardia GI/Abdominal Exam: No Distention (Male) Exam: Deferred Back Exam: No: CVA Tenderness (L), CVA Tenderness (R) Extremities: Pedal Edema (edema down to 1+ LE, feet) Peripheral Pulses: 2+: Radial (L), Radial (R) Neurological: Normal Speech, Cranial Nerves Intact Psy/Mental Status: Other (flat affect) - Patient Data Lab Results Last 24 hrs: Laboratory Results - last 24 hr 12/12/0808/23/21 08/23/21 Range/Units 21:09 07:05 07:45 INR 1.6 H (0.9-1.1) Sodium 143 (136-145) mmol/L Potassium 3.5 (3.5-5.1) mmol/L Chloride 105 (98-107) mmol/L Carbon Dioxide 33.1 H (21.0-32.0) mmol/L Anion Gap 8.4 (5-15) mmol/L BUN 18 (7-18) mg/dL Creatinine 0.90 (0.51-1.17) mg/dL Est Cr Clr Drug Dosing 66.24 mL/min Estimated GFR (MDRD) > 60 mL/min Glucose 175 H (70-140) mg/dL POC Glucose 291 H (70-140) mg/dL Calcium 8.9 (8.7-10.3) mg/dL 08/23/21 Range/Units 17:33 INR (0.9-1.1) Sodium (136-145) mmol/L Potassium (3.5-5.1) mmol/L Chloride (98-107) mmol/L Carbon Dioxide (21.0-32.0) mmol/L Anion Gap (5-15) mmol/L BUN (7-18) mg/dL Creatinine (0.51-1.17) mg/dL Est Cr Clr Drug Dosing mL/min Estimated GFR (MDRD) mL/min Glucose (70-140) mg/dL POC Glucose 223 H (70-140) mg/dL Calcium (8.7-10.3) mg/dL Result Diagrams: 08/23/21 07:05 Sepsis Event Note - Evaluation Sepsis Screening Result: No Definite Risk - Focused Exam Vital Signs: Vital Signs Temp Pulse Pulse Resp BP BP Pulse Ox 08/23/21 17:11 69 133/79 08/23/21 15:00 97.3 F 69 24 H 133/71 98 08/23/21 08:36 72 08/23/21 08:35 72 104/47 L - Problem List Review Problem List Initiated/Reviewed/Updated: Yes - My Orders Last 24 Hours: My Active Orders 08/22/21 21:00 Carbidopa/Levodopa [Sinemet Cr 25-100 mg] 1 tab PO BEDTIME Insulin Glargine,Hum.Rec.Anlog [Semglee Pen] 45 unit SUBCUT BEDTIME Tamsulosin [Flomax] 0.8 mg PO BEDTIME Terazosin [Hytrin] 2 mg PO BEDTIME allopurinoL [Zyloprim] 100 mg PO BEDTIME 08/23/21 09:00 Calcium Citrate/Vitamin D3 [Calcium Citrate + D] 1 tab PO DAILY Digoxin [Lanoxin] 125 mcg PO DAILY Finasteride [Proscar] 5 mg PO DAILY 08/23/21 14:05 Blood Glucose Check, Bedside [RC] BIDMEALS 08/24/21 05:11 INR,PT,PROTHROMBIN TIME [COAG] AM 08/24/21 09:00 CORONAVIRUS COVID-19 RAPID [MOLEC] Routine 08/25/21 05:11 INR,PT,PROTHROMBIN TIME [COAG] AM - Plan Plan:: History of present illness Ryan is an 85-year-old gentleman that has transferred his care from [facility] to [facility] and is here today brought in by family member in a wheelchair due to shortness of breath, weakness with slight fluid overload. Patient does have heart failure, atrial fibrillation with pacemaker. He states that they can no longer care for him and he has been getting weaker over the past months however of the past week he has poor appetite, slight gain in weight of 3 to 4 pounds, with worsening shortness of breath with inability to to ambulate is good. Recently had his furosemide increased back to his baseline of 40 mg daily. WT 175 lbs Sep however 185 past 2 months. _ Hospital course 08/23/2021; No overnight concerns/calls; patient doing well sitting in chair, much improved from clinical assessment yesterday, seems more alert and oriented today, less edema in his feet, no crackles, vital signs good, no abdominal pain and no longer feels full. Adequate output. Visiting with family. No fever. Primary hospital problems --HFpEF; acute on chronic, much improved, --Fluid overload, mild, resolving, wt stable --Weakness, profound --Suspect Gastroparesis, resolving --Failure to thrive, Chronic conditions Atrial Fib, chronic, AICD, [id number]: 4, Coumadin, INR daily, Rx to manage, Dilated cardiomyopathy, Sotalol (avoid albuterol to prevent arrythmias) HTN, optimal HLD, Statin T2DM, controlled Sleep apnea Gout, allopurinol Restless legs syndrome BPH with hx of urinary retention FEN: PO fluids (no restrictions for now) K+ wnl, low Na+ diet PPX: On coumadin Code: DNR/DNI Disposition/overall plan --Barely meets ongoing INPT qualification for diuresing, monitoring of electrolytes --Strict daily weights and I&O's --SS consult, Drawing Tender Aman in to visit with patient/family. Likely will be transferred to [facility]
[2021-08-23] MEDS: Terazosin 1 MG Cap PO SCH (20:58)
[2021-08-23] MEDS: Tamsulosin 0.4 MG Cap.ER PO SCH (20:59)
[2021-08-23] MEDS: Insulin Glargine,Hum.Rec.Anlog 100 UNIT/ML 3 ML Pen SUBCUT SCH (20:59)
[2021-08-23] MEDS: Allopurinol 100 MG Tab PO SCH (20:59)
[2021-08-23] MEDS: Carbidopa/Levodopa 25-100 MG Tab.ER PO SCH (20:59)
[2021-08-23] MEDS: Acetaminophen 325 MG Tab PO PRN (22:05)
[2021-08-24] MEDS: Acetaminophen 325 MG Tab PO PRN ×2 (03:48→20:26)
[2021-08-24] MEDS: Sotalol 80 MG Tab PO SCH ×2 (04:45→17:22)
[2021-08-24 07:59] LABS: ANION GAP 7.8 mmol/L (5-15); CHLORIDE,CL 104 mmol/L (98-107); SODIUM,NA 142 mmol/L (136-145)
[2021-08-24] MEDS: Calcium Citrate/Vitamin D3 315 MG-250 Unit Tab PO SCH (08:24)
[2021-08-24] MEDS: Digoxin 125 MCG Tab PO SCH (08:24)
[2021-08-24] MEDS: Carvedilol 6.25 MG Tab PO SCH ×2 (08:24→17:23)
[2021-08-24] MEDS: Finasteride 5 MG Tab PO SCH (08:24)
[2021-08-24] MEDS: Docusate Sodium 100 MG Cap PO SCH (08:24)
[2021-08-24] MEDS: Magnesium Hydroxide 400 MG/5 ML Susp 30 ML Cup PO SCH (08:29)
[2021-08-24] MEDS ORDERED: Furosemide 40 MG/4 ML VIAL IVPUSH ONE (10:18)
--- NOTE | 2021-08-24 10:18 | PCM.PN ---
- General Info Date of Service: 08/24/21 Functional Status: Reports: Pain Controlled, Tolerating Diet, Urinating. Denies: Ambulating, New Symptoms - Review of Systems General: Reports: Weakness, Fatigue, Malaise HEENT: Reports: No Symptoms Pulmonary: Reports: No Symptoms Cardiovascular: Reports: Edema Gastrointestinal: Reports: No Symptoms Genitourinary: Reports: No Symptoms Musculoskeletal: Reports: No Symptoms Neurological: Reports: Pre-Existing Deficit, Difficulty Walking, Weakness, Gait Disturbance. Denies: Dizziness Psychiatric: Denies: Confusion - Patient Data Vitals - Most Recent: Last Vital Signs Temp 97.5 F 08/24/21 04:45 Pulse 69 08/24/21 08:24 Resp 18 08/24/21 04:45 BP 119/60 08/24/21 08:24 Pulse Ox 92 L 08/24/21 04:45 Weight - Most Recent: 184 lb 5 oz I&O - Last 24 Hours: Intake & Output 08/23/21 08/24/21 08/24/21 22:59 06:59 14:59 Intake Total 450 200 Output Total 200 Balance 450 0 Lab Results Last 24 Hours: Laboratory Results - last 24 hr 08/23/21 08/24/21 08/24/21 Range/Units 17:33 07:05 07:05 PT 20.6 H (9.2-11.2) SEC INR 2.0 H (0.9-1.1) Sodium 142 (136-145) mmol/L Potassium 3.7 (3.5-5.1) mmol/L Chloride 104 (98-107) mmol/L Carbon Dioxide 33.9 H (21.0-32.0) mmol/L Anion Gap 7.8 (5-15) mmol/L BUN 16 (7-18) mg/dL Creatinine 0.89 (0.51-1.17) mg/dL Est Cr Clr Drug Dosing 65.81 mL/min Estimated GFR (MDRD) > 60 mL/min Glucose 163 H (70-140) mg/dL POC Glucose 223 H (70-140) mg/dL Calcium 9.0 (8.7-10.3) mg/dL 08/24/21 Range/Units 07:41 PT (9.2-11.2) SEC INR (0.9-1.1) Sodium (136-145) mmol/L Potassium (3.5-5.1) mmol/L Chloride (98-107) mmol/L Carbon Dioxide (21.0-32.0) mmol/L Anion Gap (5-15) mmol/L BUN (7-18) mg/dL Creatinine (0.51-1.17) mg/dL Est Cr Clr Drug Dosing mL/min Estimated GFR (MDRD) mL/min Glucose (70-140) mg/dL POC Glucose 155 H (70-140) mg/dL Calcium (8.7-10.3) mg/dL Med Orders - Current: Current Medications Acetaminophen (Acetaminophen 325 Mg Tab) 650 mg PO Q6HR PRN PRN Reason: Pain Last Admin: 08/24/21 03:48 Dose: 650 mg Documented by: Allopurinol (Allopurinol 100 Mg Tab) 100 mg PO BEDTIME [facility] Last Admin: 08/23/21 20:59 Dose: 100 mg Documented by: Calcium Citrate (Calcium Citrate/Vitamin D3 315 Mg-250 Unit Tab) 1 tab PO DAILY [facility] Last Admin: 08/24/21 08:24 Dose: 1 tab Documented by: Carbidopa/Levodopa (Carbidopa/Levodopa 25-100 Mg Tab.Er) 1 tab PO BEDTIME [facility] Last Admin: 08/23/21 20:59 Dose: 1 tab Documented by: Carvedilol (Carvedilol 6.25 Mg Tab) 3.125 mg PO BIDMEALS [facility] Last Admin: 08/24/21 08:24 Dose: 3.125 mg Documented by: Digoxin (Digoxin 125 Mcg Tab) 125 mcg PO DAILY [facility] Last Admin: 08/24/21 08:24 Dose: 125 mcg Documented by: Docusate Sodium (Docusate Sodium 100 Mg Cap) 100 mg PO DAILY [facility] Last Admin: 08/24/21 08:24 Dose: 100 mg Documented by: Finasteride (Finasteride 5 Mg Tab) 5 mg PO DAILY [facility] Last Admin: 08/24/21 08:24 Dose: 5 mg Documented by: Insulin Glargine (Insulin Glargine,Hum.Rec.Anlog 100 Unit/Ml 3 Ml Pen) 45 unit SUBCUT BEDTIME [facility] Last Admin: 08/23/21 20:59 Dose: 45 units Documented by: Magnesium Hydroxide (Magnesium Hydroxide 400 Mg/5 Ml Susp 30 Ml Cup) 30 ml PO DAILY [facility] Last Admin: 08/24/21 08:29 Dose: Not Given Documented by: Non-Formulary Medication (Warfarin Dosing) 2.5 - 5 mg PO DAILY [facility] Ondansetron HCl (Ondansetron 4 Mg Tab.Dis) 4 mg PO Q4H PRN PRN Reason: nausea, able to take PO Senna/Docusate Sodium (Docusate Sodium/Sennosides 50-8.6 Mg Tab) 1 tab PO BID PRN PRN Reason: Constipation Sodium Chloride (Sodium Chloride 0.9% 10 Ml Syringe) 10 ml FLUSH Q8HR PRN PRN Reason: keep vein open Sotalol HCl (Sotalol 80 Mg Tab) 80 mg PO Q12H [facility] Last Admin: 08/24/21 04:45 Dose: 80 mg Documented by: Tamsulosin HCl (Tamsulosin 0.4 Mg Cap.Er) 0.8 mg PO BEDTIME [facility] Last Admin: 08/23/21 20:59 Dose: 0.8 mg Documented by: Terazosin HCl (Terazosin 1 Mg Cap) 2 mg PO BEDTIME [facility] Last Admin: 08/23/21 20:58 Dose: 2 mg Documented by: Warfarin Sodium (Warfarin 2.5 Mg Tab) 2.5 mg PO ONETIME ONE Stop: 08/24/21 18:01 Discontinued Medications Furosemide (Furosemide 40 Mg/4 Ml Vial) 30 mg IVPUSH DAILY ONE Stop: 08/22/21 17:09 Last Admin: 08/22/21 17:38 Dose: 30 mg Documented by: Warfarin Sodium (Warfarin 2.5 Mg Tab) 2.5 mg PO NOW ONE Stop: 08/22/21 18:16 Last Admin: 08/22/21 18:25 Dose: 2.5 mg Documented by: Warfarin Sodium (Warfarin 5 Mg Tab) 5 mg PO ONETIME ONE Stop: 08/23/21 18:01 Last Admin: 08/23/21 17:11 Dose: 5 mg Documented by: - Exam Quality Assessment: DVT Prophylaxis. No: Supplemental Oxygen General: Alert, Oriented Lungs: Crackles (mild crackles Left lung base ) GI/Abdominal Exam: Soft Back Exam: No: CVA Tenderness (L), CVA Tenderness (R) Extremities: Pedal Edema (1+ LE pitting ) Skin: Warm, Dry, Intact Neurological: No New Focal Deficit Psy/Mental Status: Alert, Normal Mood. No: Normal Affect (flat affect, baseline ) - Patient Data Lab Results Last 24 hrs: Laboratory Results - last 24 hr 08/23/21 08/24/21 08/24/21 Range/Units 17:33 07:05 07:05 PT 20.6 H (9.2-11.2) SEC INR 2.0 H (0.9-1.1) Sodium 142 (136-145) mmol/L Potassium 3.7 (3.5-5.1) mmol/L Chloride 104 (98-107) mmol/L Carbon Dioxide 33.9 H (21.0-32.0) mmol/L Anion Gap 7.8 (5-15) mmol/L BUN 16 (7-18) mg/dL Creatinine 0.89 (0.51-1.17) mg/dL Est Cr Clr Drug Dosing 65.81 mL/min Estimated GFR (MDRD) > 60 mL/min Glucose 163 H (70-140) mg/dL POC Glucose 223 H (70-140) mg/dL Calcium 9.0 (8.7-10.3) mg/dL 08/24/21 Range/Units 07:41 PT (9.2-11.2) SEC INR (0.9-1.1) Sodium (136-145) mmol/L Potassium (3.5-5.1) mmol/L Chloride (98-107) mmol/L Carbon Dioxide (21.0-32.0) mmol/L Anion Gap (5-15) mmol/L BUN (7-18) mg/dL Creatinine (0.51-1.17) mg/dL Est Cr Clr Drug Dosing mL/min Estimated GFR (MDRD) mL/min Glucose (70-140) mg/dL POC Glucose 155 H (70-140) mg/dL Calcium (8.7-10.3) mg/dL Result Diagrams: 08/24/21 07:05 Sepsis Event Note - Evaluation Sepsis Screening Result: No Definite Risk - Focused Exam Vital Signs: Vital Signs Temp Pulse Pulse Resp BP BP Pulse Ox 08/24/21 08:24 69 119/60 08/24/21 04:45 97.5 F 70 18 114/59 L 92 L 08/23/21 23:00 97.3 F 71 20 135/61 93 L - Problem List Review Problem List Initiated/Reviewed/Updated: Yes - My Orders Last 24 Hours: My Active Orders 08/23/21 14:05 Blood Glucose Check, Bedside [RC] BIDMEALS 08/24/21 09:00 CORONAVIRUS COVID-19 RAPID [MOLEC] Routine 08/24/21 18:00 Warfarin [Coumadin] 2.5 mg PO ONETIME ONE 08/25/21 05:11 INR,PT,PROTHROMBIN TIME [COAG] AM - Plan Plan:: History of present illness Ryan is an 85-year-old gentleman that has transferred his care from [facility] to [facility] and is here today brought in by family member in a wheelchair due to shortness of breath, weakness with slight fluid overload. Patient does have heart failure, atrial fibrillation with pacemaker. He states that they can no longer care for him and he has been getting weaker over the past months however of the past week he has poor appetite, slight gain in weight of 3 to 4 pounds, with worsening shortness of breath with inability to to ambulate is good. Recently had his furosemide increased back to his baseline of 40 mg daily. WT 175 lbs Sep however 185 past 2 months. ___ Hospital course 08/23/2021; No overnight concerns/calls; patient doing well sitting in chair, much improved from clinical assessment yesterday, seems more alert and oriented today, less edema in his feet, no crackles, vital signs good, no abdominal pain and no longer feels full. Adequate output. Visiting with family. No fever. 08/24/21: Doing well, No overnight concerns/calls; patient slouched over in chair this am sleeping, did not sleep well last night however denies PND or abd pain. Has no complaints. Improved overall since admission however not near baseline to date. Crackles left base--very mild. BP and POX good. Stable wt. Primary hospital problems --HFpEF; acute on chronic, much improved, --Fluid overload, mild, resolving, wt stable --Weakness, profound --Failure to thrive, Chronic conditions Atrial Fib, chronic, AICD, [id number]: 4, Coumadin, INR daily, Rx to manage, Dilated cardiomyopathy, Sotalol (avoid albuterol to prevent arrythmias) HTN, optimal HLD, Statin T2DM, controlled Sleep apnea Gout, allopurinol Restless legs syndrome BPH with hx of urinary retention FEN: PO fluids (no restrictions for now) K+ wnl, low Na+ diet PPX: On coumadin Code: DNR/DNI Disposition/overall plan --Will cont with INPT status and plan is for skilled facility [facility]. --Lasix IVP today.
[2021-08-24] MEDS ORDERED: Warfarin 2.5 MG Tab PO ONE (18:00)
[2021-08-24] MEDS: Tamsulosin 0.4 MG Cap.ER PO SCH (20:27)
[2021-08-24] MEDS: Insulin Glargine,Hum.Rec.Anlog 100 UNIT/ML 3 ML Pen SUBCUT SCH (20:27)
[2021-08-24] MEDS: Allopurinol 100 MG Tab PO SCH (20:27)
[2021-08-24] MEDS: Carbidopa/Levodopa 25-100 MG Tab.ER PO SCH (20:29)
[2021-08-24] MEDS: Terazosin 1 MG Cap PO SCH (20:29)
[2021-08-25] MEDS: Sotalol 80 MG Tab PO SCH (05:00)
[2021-08-25 05:15] VITALS: PULSE 70
[2021-08-25] MEDS: Finasteride 5 MG Tab PO SCH (08:19)
[2021-08-25] MEDS: Calcium Citrate/Vitamin D3 315 MG-250 Unit Tab PO SCH (08:19)
[2021-08-25] MEDS: Docusate Sodium 100 MG Cap PO SCH (08:20)
[2021-08-25] MEDS: Magnesium Hydroxide 400 MG/5 ML Susp 30 ML Cup PO SCH (08:20)
[2021-08-25] MEDS: Digoxin 125 MCG Tab PO SCH (08:21)
[2021-08-25 08:22] VITALS: BP 124/76
[2021-08-25] MEDS: Carvedilol 6.25 MG Tab PO SCH (08:22)
--- OUTSIDE RECORDS SUMMARY | 2021-08-25 15:08 | XMSREPORT ---
:1935 Author Name Kizzy Reynolds Address Unavailable Unavailable , Care Team Providers Name Role Phone See ANDERSON CNP Unavailable Unavailable Brenda CUI Unavailable Unavailable Unavailable Unavailable Unavailable Reason for Referral INPATIENT History of Present Illness Alexandra is an 85-year-old gentleman that is here today due to some mild shortness of breath. Please see H&P on the [facility] EMR as the patient was admitted into inpatient status due to mild CHF exacerbation and generalized weakness and failure to thrive Assessments No Information Problems Gout (274.9) (M10.9) HTN (hypertension) (401.9) (I10) Atrial fibrillation (427.31) (I48.91) Anemia (285.9) (D64.9) BPH (benign prostatic hyperplasia) (600.00) (N40.0) Overt chronic systolic congestive heart failure (428.22) (I5 0.22) Diabetes (250.00) (E11.9) Parkinsonism (332.0) (G20) Weakness (780.79) (R53.1) Encounter for preoperative screening lab oratory testing for COVID-19 virus (V72.63) (Z01.812) Allergies and Adverse Reactions No Known Drug Allergies (Allergy) Medications Furosemide 40 MG Oral Tablet; TAKE 1 TABLET (40mg) BY MOUTH DAILY DIRECTED Quantity: 1 Refills: 0 Carvedilol 3.125 MG Oral Tablet; TAKE 1 TABLET TWICE DAILY W ITH MEALS. Refills: 0 Sinemet 25-100 MG Oral Tablet; TAKE 1 TABLET 1 TIMES DAILY. Refills: 0 Allopurinol 100 MG Oral Tablet; TAKE 1 TABLET DAILY. Quantity: 1 Refills: 0 Digoxin 125 MCG Oral Tablet; Take one tablet daily Refills: 1 Finasteride 5 MG Oral Tablet; TAKE ONE TABLET BY MOUTH DAILY Refills: 2 Sotalol HCl - 80 MG Oral Tablet; TAKE 1 TABLET EVERY 12 HOUR S DAILY. Refills: 0 Warfarin Sodium 5 MG Oral Tablet; ANTICO AGULATION MANAGED PATIENT. TAKES DIRECTED (INSURANCE PURPOSES TAKE 2.5-5 MG DDR) Refills: 0 Tamsulosin HCl - 0.4 MG Oral Capsule; TAKE TWO CAPSULES BY M OUTH AT BEDTIME. Refills: 0 Lantus SoloStar 100 UNIT/ML Subcutaneous Solution Pen-injector; INJECT 45 UNITS SUBCUTANEOUSLY ONCE DAILY 5 x 3 ML Pen Quantity: 3 Refills: 3 Sennosides TABS; TAKE 1 TABLET BY MOUTH NEEDED Refills: 0 Trulicity 0.75 MG/0.5ML Subcutaneous Beth ution Pen-injector; INJECT 0.5 ML SUBCUTANEOUSLY ONCE WEEKLY Refills: 1 Terazosin HCl - 2 MG Oral Capsule; TAKE ONE CAPSULE BY MOUTH DAILY AT BEDTIME Refills: 0 Ferrous Sulfate 325 (65 Fe) MG Oral Tablet; TAKE 1 TABLET DA JOY DIRECTED. Refills: 0 Calcium + D TABS; TAKE 1 TABLET DAILY. Refills: 0 Procedures CR Chest 2V Date: 22-Aug-2021 History of Cardioverter defibrillator insertion Status: Completed History of Colonoscopy Status: Completed History of Hip replacement Status: Compl eted History of Carpal tunnel surgery Status: Completed History of Cataract surgery Status: Comp leted History of Hernia repair Status: Complet ed History of Prostate surgery Status: Comp leted History of Pacemaker insertion Status: C ompleted Immunizations PCV 13, pneumococcal conjugate vaccine, 13 valent 0 On: Pneumococcal polysaccharide vaccine, 23 valent 0 On: 2015 Lot #: [id number], Shingrix 50 MCG Intramuscular Suspension Reconstituted 0 On: 17-May-2018 Tdap 0 On: 17-May-2018 Shingrix 50 MCG Intramuscular Suspension Reconstituted 0 On: 06-Oct-2018 Maura COVID-19 Vaccine 0.5 ML Intramuscular Suspension 0 O n: 20-Dec-2020 Lot #: [id number], Influenza 0 On: 13-Jun-2021 Lot #: [id number], Interventions Labs/Procedures/ImagingCR Chest 2V; To Be Done: 22 Aug 2021 Plan of Treatment Planned Goals not documented Results CBC WITH AUTO DIFF Laboratory: [facility] Comments: Reason for Exam: E11.9, 22-Aug-2021 14:15 WHITE BLOOD CELL COUNT,WBC 9.48 Range: 5.00-10.00 {10_3/uL} (Normal) RED BLOOD CELL COUNT 4.09 Range: 4.50-6 .00 {10_6/uL} (below low threshold) HEMOGLOBIN 11.1 g/dL (below low Range: 13.0-17.0 threshold) HEMATOCRIT 36.3 % (below low Range: 40. 0-52.0 threshold) MEAN CORPUSCULAR VOLUME 88.8 fL Range: 82.0-92.0 (Normal) MEAN CORPUSCULAR HEMOGLOBIN Range: 27.0 -31.0 27.1 pg (Normal) MEAN CORPUSCULAR HGB CONC 30.6 Range: 3 2.0-36.0 g/dL (below low threshold) RED CELL DISTRIBUTION WIDTH Range: 11.5 -14.5 14.4 % (Normal) PLATELET COUNT,PLT 230 Range: 150-400 {10_3/uL} (Normal) MEAN PLATELET VOLUME 11.3 fL Range: 7.4 -10.4 (above high threshold) NEUTROPHILS PERCENT AUTO 70.6 % Range: 50.0-70.0 (above high threshold) LYMPHOCYTES PERCENT AUTO 18.9 % Range: 20.0-40.0 (below low threshold) MONOCYTES PERCENT AUTO 8.6 % Range: 2.0 -8.0 (above high threshold) EOSINOPHILS PERCENT AUTO 1.3 % Range: 1 .0-3.0 (Normal) BASOPHILS PERCENT AUTO 0.5 % Range: 0.0 -1.0 (Normal) IMMATURE GRAN PERCENT AUTO 0.1 Range: 0 .0-5.0 % (Normal) NEUTROPHILS ABSOLUTE AUTO 6.69 Range: 2 .50-7.00 {10_3/uL} (Normal) LYMPHOCYTES ABSOLUTE AUTO 1.79 Range: 1 .00-4.00 {10_3/uL} (Normal) MONOCYTES ABSOLUTE AUTO 0.82 Range: 0.1 0-0.80 {10_3/uL} (above high threshold) EOSINOPHILS ABSOLUTE AUTO 0.12 Range: 0 .10-0.30 {10_3/uL} (Normal) BASOPHILS ABSOLUTE AUTO 0.05 Range: 0.0 0-0.10 {10_3/uL} (Normal) IMMATURE GRAN ABSOLUTE AUTO Range: 0.00 -0.50 0.01 {10_3/uL} (Normal) B-TYPE NATRIURETIC Laboratory: [facility] Comments: Reason for Exam: PEPTIDE,BNP I50.22, 3-Dec-2021 14:15 B-TYPE NATRIURETIC PEPTIDE,BNP Range: 0 -100 957 pg/mL (above high threshold) COMPREHENSIVE METABOLIC Laboratory: [facility] Comments: Reason for Exam: PN,CMP (ND) R53.1, 22-Aug-2021 14:15 SODIUM,NA 142 mmol/L (Normal) Range: 13 6-145 POTASSIUM,K 4.1 mmol/L (Normal) Range: 3.5-5.1 CHLORIDE,CL 105 mmol/L (Normal) Range: 98-107 CARBON DIOXIDE,CO2 31.2 mmol/L Range: 2 1.0-32.0 (Normal) ANION GAP 9.9 mmol/L (Normal) Range: 5- 15 GLUCOSE RANDOM 225 mg/dL (above Range: 70-140 high threshold) Comments: Referenc e Range Glucose Random: 70-140 mg/dL Glucose Fastin-99 mg/dL BLOOD UREA NITROGEN,BUN 24 Range: 7-18 mg/dL (above high threshold) CREATININE 0.89 mg/dL (Normal) Range: 0 .51-1.17 ESTIMATED GFR > 60 mL/min Comments: KIDN EY DAMAGE (Normal) STAGE DESCRIP TION GFR ------ 1 Minimal loss of ki dney 90+ function 2 Mi ld decrease in GFR 60-89 3 Moder ate decrease in GFR 3 0-59 4 Severe decre ase in GFR 15-29 5 Kidney failure <15 The GFR shayne mate (eGFR) is based on t kerry modification of Diet in Renal Disease Study equation (MDRD) and should be used to identify adult patients at risk for chronic kidney disea se. CALCIUM 9.4 mg/dL (Normal) Range: 8.7-1 0.3 PROTEIN TOTAL,TP 6.9 g/dL Range: 6.4-8. 2 (Normal) ALBUMIN 2.91 g/dL (below low Range: 3.4 0-5.00 threshold) BILIRUBIN TOTAL 0.5 mg/dL Range: 0.2-1. 0 (Normal) ALKALINE PHOSPHATASE 88 U/L Range: 46-1 16 (Normal) ALANINE AMINOTRANSFERASE,ALT 20 Range: 14-63 U/L (Normal) ASPARTATE AMNIOTRANSFERASE,AST Range: 1 5-37 15 U/L (Normal) EST CRCL DRUG DOSING (CG) Test Comments: Cannot calculate Not Performed mL/min (Normal) creatinine clearance because height is mi ssing. CR Chest 2V Laboratory: [facility] 22-Aug-2021 14:15 CR Chest 2V [address] [place] [address] DIAGNOSTIC IMAGING DEPARTMENT Computed Radiography X Ray Patient Name: ALEXANDRA SIMMONS Unit Number: [id number] Date of : 1935 Ordering Provider: Jacob Cui NP Location: [facility] Primary Provider: Room/Bed: Order Procedure: [id number] CR/Chest 2V Date of Exam: 08/22/21 Order Requisition#: [id number] RAD/RAD Chest PA And Lateral EXAM: RAD Chest PA And Lateral CLINICAL DATA: HYPERTENSION ATRIAL FIBRILLATION COMPARISON: CORRELATION IS MADE WITH JULY 30, 2021 FINDINGS: There is mild edema There is minimal pleural reaction at the lung bases The cardiomediastinal contour is stable IMPRESSION: MILD EDEMA Skyler Prakash MD 08/22/21 [id number] Thank you for allowing us to participate in the care of your patient. Dictated by: Duane JONES 08/22/21 at 1501 , 1456 , 1455 Doc Number: [id number] Copies To: Jacob Cui [employer] Vital Signs 22-Aug-2021 14:44 Systolic 124 mm[Hg] Diastolic 62 mm[Hg] Weight 190.6 lb Temperature 98.2 f Heart Rate 70 /min Respiration 22 /min O2 Saturation 96 % 22-Aug-2021 13:31 Systolic 124 mm[Hg] Diastolic 62 mm[Hg] Weight 190.6 lb Temperature 98.2 f Heart Rate 70 /min Respiration 22 /min O2 Saturation 96 % Encounters Appointment; Jacob Cui APRN|[facility] 22-Aug-2021 14:00 Encounter Diagnosis: Problem not documented"
[2021-08-25] MEDS ORDERED: Warfarin 5 MG Tab PO ONE (18:00)
== END 2021-08-25 11:30 | DRG 291 ==
LOC: KA.MS 15:44
PROVIDERS: ADMIT Nurse Practitioner Family; ATTEND Nurse Practitioner Family
DX: I11.0 Hypertensive heart disease with heart failure (principal); U07.1 COVID-19; I50.33 Acute on chronic diastolic (congestive) heart failure; I48.20 Chronic atrial fibrillation, unspecified; I42.0 Dilated cardiomyopathy; E78.5 Hyperlipidemia, unspecified; Z66 Do not resuscitate; E11.9 Type 2 diabetes mellitus without complications; G47.33 Obstructive sleep apnea (adult) (pediatric); M10.9 Gout, unspecified; G25.81 Restless legs syndrome; N40.1 Benign prostatic hyperplasia with lower urinary tract symptoms; R33.9 Retention of urine, unspecified; H54.7 Unspecified visual loss; K52.9 Noninfective gastroenteritis and colitis, unspecified; M19.90 Unspecified osteoarthritis, unspecified site; Z96.649 Presence of unspecified artificial hip joint; Z90.89 Acquired absence of other organs; Z79.01 Long term (current) use of anticoagulants; Z79.4 Long term (current) use of insulin; Z79.899 Other long term (current) drug therapy; Z95.0 Presence of cardiac pacemaker; Z86.010 Personal history of colon polyps; Z98.49 Cataract extraction status, unspecified eye
CPT/HCPCS: 36415; 80048; 82947; 85610; A9270-GY; J1940; U0002

== ENCOUNTER 2021-09-16 10:19 | Inpatient (IN) | payer MEDICARE, OTHER ==
[2021-09-16] MEDS ORDERED: Sodium Chloride 0.9% 10 ML Syringe FLUSH PRN (10:27)
--- NOTE | 2021-09-16 10:29 | EDM.PDOC ---
ED HPI GENERAL MEDICAL PROBLEM - General Chief Complaint: Respiratory Problem Stated Complaint: SOB/WEAKNESS Time Seen by Provider: 09/16/21 10:27 Source of Information: Reports: Patient, EMS Notes Reviewed, Penitentiary Records - History of Present Illness INITIAL COMMENTS - FREE TEXT/NARRATIVE: Salazar, 86-year-old male, presents by ambulance, today from the [facility]. There had been noted weight gain and change in edema with shortness of breath likely exacerbation of his chronic CHF issues. Had received additional oral Lasix over the weekend with no improvement in his overall status. Was transferred here today for evaluation. Previous Covid diagnosis in the past months with hospitalization and discharged to the facility with no major concerns in that factor. Has had no complaints of chest pain. Edema significantly worsened in the past week. Denies fever chills. Onset: Gradual Duration: Day(s): Location: Reports: Chest, Lower Extremity, Left, Lower Extremity, Right Severity: Moderate Improves with: Reports: None - Related Data Allergies Allergy/AdvReac Type Severity Reaction Status Date / Time No Known Drug Allergies Allergy Cannot Verified 09/16/21 11:01 Remember Home Meds: Home Meds Allopurinol [Zyloprim] 100 mg PO BEDTIME 12/14/16 [History] Calcium Carbonate/Vitamin D3 [Calcium 600Mg-D3 400 Unit Sfgl] 1 tab PO DAILY 12/14/16 [History] Carbidopa/Levodopa [Carbidopa-Levo ER 25-100] 1 tab PO BEDTIME 12/14/16 [History] Digoxin 125 mcg PO DAILY 12/14/16 [History] Ferrous Sulfate 325 mg PO BEDTIME 12/14/16 [History] Furosemide 40 mg PO DAILY 12/14/16 [History] Insulin Glarg,Human.Rec.Analog [LantUS Solostar] 20 units SQ BEDTIME 12/14/16 [History] Sotalol [Betapace] 80 mg PO Q12HR 12/14/16 [History] Tamsulosin [Flomax] 0.8 mg PO BEDTIME 12/14/16 [History] Finasteride [Proscar] 5 mg PO DAILY 01/10/19 [History] Warfarin Dosing [Coumadin Ask] 2.5 mg PO DAILY 01/10/19 [History] Acetaminophen [Tylenol] 650 mg PO Q6HR PRN 07/30/21 [History] Sennosides/Docusate Sodium [Senna Plus 8.6-50 mg Tablet] 1 each PO BID PRN 07/30/21 [History] Dulaglutide [Trulicity] 0.5 mg SQ WEEKLY 08/22/21 [History] Terazosin HCl [Terazosin] 2 mg PO BEDTIME 08/22/21 [History] carvediloL [Carvedilol] 3.125 mg PO BIDMEALS 08/22/21 [History] Past Medical History HEENT History: Reports: Cataract, Impaired Vision Cardiovascular History: Reports: Heart Failure, Pacemaker Respiratory History: Reports: SOB, Other (See Below) Other Respiratory History: uses 2 liters at night Gastrointestinal History: Reports: Chronic Diarrhea, Colon Polyp Genitourinary History: Reports: BPH Musculoskeletal History: Reports: Arthritis, Gout Neurological History: Reports: Other (See Below) Other Neuro History: restless legs Psychiatric History: Reports: None Endocrine/Metabolic History: Reports: Diabetes, Type II, IDDM Hematologic History: Reports: Blood Transfusion(s) Oncologic (Cancer) History: Reports: None - Infectious Disease History Infectious Disease History: Reports: Chicken Pox, Measles, Mumps - Past Surgical History HEENT Surgical History: Reports: Cataract Surgery, Tonsillectomy Cardiovascular Surgical History: Reports: Pacer Respiratory Surgical History: Reports: None GI Surgical History: Reports: Colonoscopy, Hernia Repair/Other Endocrine Surgical History: Reports: None Neurological Surgical History: Reports: None Musculoskeletal Surgical History: Reports: Hip Replacement Social & Family History - Family History Family Medical History: No Pertinent Family History - Caffeine Use Caffeine Use: Reports: Coffee, Soda ED ROS GENERAL - Review of Systems Review Of Systems: Comprehensive ROS is negative, except as noted in HPI. ED EXAM, GENERAL - Physical Exam Exam: See Below Free Text/Narrative:: Alert, oriented, in minimal respiratory distress. There is no cyanosis nor pallor noted. [place] moist mucous membranes. Neck is soft supple with no lymphadenopathy. Thorax is scattered rhonchi with occasional crackle best heard at the base with no noted wheezes. Cardiac is regular with radial pulse correlating. There is no tenderness to palpation of the chest wall. There is no abdominal tenderness with bowel sounds present. +23 edema to the lower extremities with skin warm and dry. #1 Interpretation EKG Date: 09/16/21 Time: 10:55 Rate (Beats/Min): 70 (PACED) Comparison: No Change (Paced rhythm) Course - Vital Signs Last Recorded V/S: Last Vital Signs Temp 98.2 F 09/16/21 13:00 Pulse 71 09/16/21 13:35 Resp 17 09/16/21 13:35 BP 135/68 09/16/21 13:35 Pulse Ox 94 L 09/16/21 13:35 - Orders/Labs/Meds Orders: Active Orders 24 hr Category Date Time Status Patient Status [ADT] Routine ADT 09/16/21 14:34 Active Peripheral IV Care [RC] . DIRECTED Care 09/16/21 10:28 Active CULTURE BLOOD [BC] Stat Lab 09/16/21 10:28 Ordered CULTURE BLOOD [BC] Stat Lab 09/16/21 11:00 Received Sodium Chloride 0.9% [Saline Flush] Med 09/16/21 10:27 Active 10 ml FLUSH Q8HR PRN Blood Culture x2 Reflex Set [OM.PC] Stat Oth 09/16/21 10:27 Ordered Peripheral IV Insertion Adult [OM.PC] Stat Oth 09/16/21 10:27 Ordered EKG 12 Lead [EK] Stat Ther 09/16/21 10:27 Ordered Medication Orders Sodium Chloride (Sodium Chloride 0.9% 10 Ml Syringe) 10 ml FLUSH Q8HR PRN PRN Reason: keep vein open Labs: Laboratory Tests 09/16/21 09/16/21 09/16/21 Range/Units 10:27 10:27 10:27 WBC 10.06 H (5.00-10.00) 10^3/uL RBC 3.82 L (4.50-6.00) 10^6/uL Hgb 10.4 L (13.0-17.0) g/dL Hct 34.9 L (40.0-52.0) % MCV 91.4 (82.0-92.0) fL MCH 27.2 (27.0-31.0) pg MCHC 29.8 L (32.0-36.0) g/dL RDW 14.6 H (11.5-14.5) % Plt Count 217 (150-400) 10^3/uL MPV 11.2 H (7.4-10.4) fL Immature Gran % (Auto) 0.2 (0.0-5.0) % Neut % (Auto) 71.8 H (50.0-70.0) % Lymph % (Auto) 17.5 L (20.0-40.0) % [place] % (Auto) 8.4 H (2.0-8.0) % Eos % (Auto) 1.5 (1.0-3.0) % Baso % (Auto) 0.6 (0.0-1.0) % Neut # (Auto) 7.22 H (2.50-7.00) 10^3/uL Lymph # (Auto) 1.76 (1.00-4.00) 10^3/uL [place] # (Auto) 0.85 H (0.10-0.80) 10^3/uL Eos # (Auto) 0.15 (0.10-0.30) 10^3/uL Baso # (Auto) 0.06 (0.00-0.10) 10^3/uL Immature Gran # (Auto) 0.02 (0.00-0.50) 10^3/uL D-Dimer, Quantitative 514 H (<400) ng/mL Sodium 140 (136-145) mmol/L Potassium 3.9 (3.5-5.1) mmol/L Chloride 101 (98-107) mmol/L Carbon Dioxide 37.6 H (21.0-32.0) mmol/L Anion Gap 5.3 (5-15) mmol/L BUN 17 (7-18) mg/dL Creatinine 0.99 (0.51-1.17) mg/dL Est Cr Clr Drug Dosing 60.58 mL/min Estimated GFR (MDRD) > 60 mL/min Glucose 232 H (70-140) mg/dL Lactic Acid (0.4-2.0) mmol/L Calcium 8.9 (8.7-10.3) mg/dL Total Bilirubin 0.5 (0.2-1.0) mg/dL AST 15 (15-37) U/L ALT 19 (14-63) U/L Alkaline Phosphatase 91 (46-116) U/L Troponin I High Sens 41.100 (0-76.000) pg/mL B-Natriuretic Peptide (0-100) pg/mL Total Protein 6.6 (6.4-8.2) g/dL Albumin 2.78 L (3.40-5.00) g/dL Influenza Type A RNA (NEGATIVE) RSV RNA (INAAT) (NEGATIVE) Influenza Type B RNA (NEGATIVE) SARS-CoV-2 RNA (SAMIR) (NEGATIVE) 09/16/21 09/16/21 09/16/21 Range/Units 10:27 10:28 12:35 WBC (5.00-10.00) 10^3/uL RBC (4.50-6.00) 10^6/uL Hgb (13.0-17.0) g/dL Hct (40.0-52.0) % MCV (82.0-92.0) fL MCH (27.0-31.0) pg MCHC (32.0-36.0) g/dL RDW (11.5-14.5) % Plt Count (150-400) 10^3/uL MPV (7.4-10.4) fL Immature Gran % (Auto) (0.0-5.0) % Neut % (Auto) (50.0-70.0) % Lymph % (Auto) (20.0-40.0) % [place] % (Auto) (2.0-8.0) % Eos % (Auto) (1.0-3.0) % Baso % (Auto) (0.0-1.0) % Neut # (Auto) (2.50-7.00) 10^3/uL Lymph # (Auto) (1.00-4.00) 10^3/uL [place] # (Auto) (0.10-0.80) 10^3/uL Eos # (Auto) (0.10-0.30) 10^3/uL Baso # (Auto) (0.00-0.10) 10^3/uL Immature Gran # (Auto) (0.00-0.50) 10^3/uL D-Dimer, Quantitative (<400) ng/mL Sodium (136-145) mmol/L Potassium (3.5-5.1) mmol/L Chloride (98-107) mmol/L Carbon Dioxide (21.0-32.0) mmol/L Anion Gap (5-15) mmol/L BUN (7-18) mg/dL Creatinine (0.51-1.17) mg/dL Est Cr Clr Drug Dosing mL/min Estimated GFR (MDRD) mL/min Glucose (70-140) mg/dL Lactic Acid 1.0 (0.4-2.0) mmol/L Calcium (8.7-10.3) mg/dL Total Bilirubin (0.2-1.0) mg/dL AST (15-37) U/L ALT (14-63) U/L Alkaline Phosphatase (46-116) U/L Troponin I High Sens (0-76.000) pg/mL B-Natriuretic Peptide 636 H (0-100) pg/mL Total Protein (6.4-8.2) g/dL Albumin (3.40-5.00) g/dL Influenza Type A RNA Negative (NEGATIVE) RSV RNA (INAAT) Negative (NEGATIVE) Influenza Type B RNA Negative (NEGATIVE) SARS-CoV-2 RNA (SAMIR) Positive H (NEGATIVE) Meds: Medications Generic Name Dose Route Start Last Admin Trade Name Freq PRN Reason Stop Dose Admin Sodium Chloride 10 ml 09/16/21 10:27 Sodium Chloride 0.9% 10 Ml Syringe FLUSH Q8HR PRN keep vein open Discontinued Medications Generic Name Dose Route Start Last Admin Trade Name Freq PRN Reason Stop Dose Admin Furosemide 20 mg 09/16/21 13:45 09/16/21 13:52 Furosemide 40 Mg/4 Ml Vial IVPUSH 09/16/21 13:46 20 mg NOW ONE Administration Departure - Departure Time of Disposition: 14:48 Disposition: Admitted As Inpatient 68 Condition: Fair Clinical Impression: Elevated brain natriuretic peptide (BNP) level, CHF (congestive heart failure), SOB (shortness of breath), Lab test positive for detection of COVID-19 virus - Discharge Information *PRESCRIPTION DRUG MONITORING PROGRAM REVIEWED*: Not Applicable *COPY OF PRESCRIPTION DRUG MONITORING REPORT IN PATIENT YOLI: Not Applicable Referrals: [facility] [Primary Care Provider] - Forms: ED Department Discharge Additional Instructions: Will be admitted acute status to the floor for IV diuretics to [facility]. Sepsis Event Note (ED) - Focused Exam Vital Signs: Vital Signs Temp Pulse Resp BP Pulse Ox 09/16/21 13:35 71 17 135/68 94 L 09/16/21 13:00 98.2 F 70 21 H 142/67 H 92 L 09/16/21 12:30 89 26 H 132/64 89 L 09/16/21 12:00 70 30 H 130/64 89 L 09/16/21 11:15 97.4 F 70 32 H 128/67 92 L 09/16/21 11:02 97.5 F 80 32 H 134/68 93 L 09/16/21 10:45 70 30 H 128/52 L 92 L 09/16/21 10:30 71 32 H 137/67 91 L ED Communication - ED Communication Date/Time Date: 09/16/21 Time Called: 14:20 - Discussed Case With (1) Discussed Case With (1): Admitting Provider Person/s Notified (1): [facility] - Problem List & Annotations (1) Elevated brain natriuretic peptide (BNP) level SNOMED Code(s): 332310970, 581314461 Code(s): R79.89 - OTHER SPECIFIED ABNORMAL FINDINGS OF BLOOD CHEMISTRY Status: Acute Priority: High Current Visit: Yes (2) CHF (congestive heart failure) SNOMED Code(s): 72001825 Code(s): I50.9 - HEART FAILURE, UNSPECIFIED Status: Chronic Priority: High Current Visit: Yes - Problem List Review Problem List Initiated/Reviewed/Updated: Yes - My Orders Last 24 Hours: My Active Orders 09/16/21 10:27 Sodium Chloride 0.9% [Saline Flush] 10 ml FLUSH Q8HR PRN Blood Culture x2 Reflex Set [OM.PC] Stat Peripheral IV Insertion Adult [OM.PC] Stat EKG 12 Lead [EK] Stat 09/16/21 10:28 Peripheral IV Care [RC] . DIRECTED CULTURE BLOOD [BC] Stat 09/16/21 11:00 CULTURE BLOOD [BC] Stat 09/16/21 14:34 Patient Status [ADT] Routine - Assessment/Plan Admission H&P: Please use this note as an admission H&P Last 24 Hours: My Active Orders 09/16/21 10:27 Sodium Chloride 0.9% [Saline Flush] 10 ml FLUSH Q8HR PRN Blood Culture x2 Reflex Set [OM.PC] Stat Peripheral IV Insertion Adult [OM.PC] Stat EKG 12 Lead [EK] Stat 09/16/21 10:28 Peripheral IV Care [RC] . DIRECTED CULTURE BLOOD [BC] Stat 09/16/21 11:00 CULTURE BLOOD [BC] Stat 09/16/21 14:34 Patient Status [ADT] Routine Plan: Will be admitted acute status to the floor for IV diuretics to [facility].
--- NOTE | 2021-09-16 11:13 | CR ---
[id number] RAD/RAD Chest PA or AP 1V EXAM: RAD Chest PA or AP 1V INDICATION: COUGH, SHORTNESS OF BREATH, FATIGUE. COMPARISON: August 22, 2021. DISCUSSION/IMPRESSION: Cardiomediastinal silhouette is unchanged in size and contour compared to the prior examination again demonstrating cardiomegaly and central vascular congestion. Right chest wall cardiac conduction device remains in place. Bilateral pleural effusions and bibasal atelectasis. Possible early changes of parenchymal edema in both lung bases as well. Findings have increased compared to the prior examination. Carlos Manuel Winn MD 09/16/21 [id number] Thank you for allowing us to participate in the care of your patient.
[2021-09-16 11:14] LABS: ANION GAP 5.3 mmol/L (5-15); CHLORIDE,CL 101 mmol/L (98-107); SODIUM,NA 140 mmol/L (136-145)
[2021-09-16 11:42] LABS: CORONAVIRUS COVID-19 NAA POSITIVE (NEGATIVE); RESPIRATORY SYNCYTIAL VIR NAA NEGATIVE (NEGATIVE)
[2021-09-16] MEDS ORDERED: Furosemide 40 MG/4 ML VIAL IVPUSH ONE (13:45)
[2021-09-16] MEDS ORDERED: Acetaminophen 325 MG Tab PO PRN (19:00)
[2021-09-16] MEDS: Allopurinol 100 MG Tab PO SCH (20:32)
[2021-09-16] MEDS: Tamsulosin 0.4 MG Cap.ER PO SCH (20:32)
[2021-09-16] MEDS: Carbidopa/Levodopa 25-100 MG Tab.ER PO SCH (20:32)
[2021-09-16] MEDS: Sotalol 80 MG Tab PO SCH (20:33)
[2021-09-16] MEDS: Insulin Glargine,Hum.Rec.Anlog 100 UNIT/ML 3 ML Pen SUBCUT SCH (20:38)
[2021-09-17 07:56] LABS: CHLORIDE,CL 103 mmol/L (98-107); SODIUM,NA 143 mmol/L (136-145)
[2021-09-17] MEDS: Finasteride 5 MG Tab PO SCH (08:32)
[2021-09-17] MEDS: Carvedilol 6.25 MG Tab PO SCH ×2 (08:32→17:36)
[2021-09-17] MEDS: Furosemide 40 MG/4 ML VIAL IVPUSH SCH (08:32)
[2021-09-17] MEDS: Digoxin 125 MCG Tab PO SCH (08:32)
[2021-09-17] MEDS: Sotalol 80 MG Tab PO SCH ×2 (08:32→20:33)
[2021-09-17] MEDS: Calcium Citrate/Vitamin D3 315 MG-250 Unit Tab PO SCH (08:32)
[2021-09-17] MEDS ORDERED: Lidocaine 2% 100 MG/5 ML Syringe IVPUSH PRN (08:47)
[2021-09-17] MEDS ORDERED: Atropine 0.1 MG/ML 10 ML Syringe IVPUSH PRN (08:47)
[2021-09-17] MEDS ORDERED: Nitroglycerin 0.4 MG Tab.SL SL PRN (08:47)
[2021-09-17] MEDS ORDERED: EPINEPHrine 1:10,000 1 MG/10 ML Syringe IVPUSH PRN (08:47)
[2021-09-17] MEDS ORDERED: Metolazone 2.5 MG Tab PO ONE (09:33)
--- NOTE | 2021-09-17 09:34 | PCM.PN ---
- General Info Date of Service: 09/17/21 Admission Dx/Problem (Free Text): CHF exacerbation with outpatient failure. - Review of Systems Systems Review Comment:: 09/17: Salazar is seen today on inpatient rounds. He was admitted through the ER on 09/16 for CHF exacerbation. He was hospitalized earlier in the month with CHF exacerbation, FTT and weakness. His discharge weight was 184. Upon admission this time he was 189. He was discharged to [facility] and had been under the care of [facility]. Reportedly he was more SOB and had worsening edema in his lower extremities and reportedly he had been given extra oral furosemide (it is unclear how much he received over what period of time at the time of this note) but reportedly he was not responding and so he was sent to the ER for further evaluation. BNP in the ER Was 636. He was given furosemide 20 mg IV x 1 dose and admitted to the floor for further diuresis. Also of note Salazar had COVID in July of 2021. His daughter Esther is present today and states she stayed with him while he had COVID and states it was relatively mild. This morning on rounds Salazar is just finishing getting cleaned up in the bathroom. He is able to ambulate with stand by assist with his walker to the bed. He reports feeling SOB. His daughter states that while his legs are still edematous they appear to be better than when she first saw them. - Patient Data Vitals - Most Recent: Last Vital Signs Temp 97.4 F 09/17/21 06:24 Pulse 69 09/17/21 08:32 Resp 20 09/17/21 06:24 BP 129/62 09/17/21 08:32 Pulse Ox 95 09/17/21 06:24 Weight - Most Recent: 189 lb 8 oz I&O - Last 24 Hours: Intake & Output 09/16/21 09/17/21 09/17/21 22:59 06:59 14:59 Intake Total 250 150 Output Total 500 300 Balance -250 -150 Lab Results Last 24 Hours: Laboratory Results - last 24 hr 09/16/21 09/16/21 09/16/21 Range/Units 10:27 10:27 10:27 WBC 10.06 H (5.00-10.00) 10^3/uL RBC 3.82 L (4.50-6.00) 10^6/uL Hgb 10.4 L (13.0-17.0) g/dL Hct 34.9 L (40.0-52.0) % MCV 91.4 (82.0-92.0) fL MCH 27.2 (27.0-31.0) pg MCHC 29.8 L (32.0-36.0) g/dL RDW 14.6 H (11.5-14.5) % Plt Count 217 (150-400) 10^3/uL MPV 11.2 H (7.4-10.4) fL Immature Gran % (Auto) 0.2 (0.0-5.0) % Neut % (Auto) 71.8 H (50.0-70.0) % Lymph % (Auto) 17.5 L (20.0-40.0) % [place] % (Auto) 8.4 H (2.0-8.0) % Eos % (Auto) 1.5 (1.0-3.0) % Baso % (Auto) 0.6 (0.0-1.0) % Neut # (Auto) 7.22 H (2.50-7.00) 10^3/uL Lymph # (Auto) 1.76 (1.00-4.00) 10^3/uL [place] # (Auto) 0.85 H (0.10-0.80) 10^3/uL Eos # (Auto) 0.15 (0.10-0.30) 10^3/uL Baso # (Auto) 0.06 (0.00-0.10) 10^3/uL Immature Gran # (Auto) 0.02 (0.00-0.50) 10^3/uL PT (9.2-11.2) SEC INR D-Dimer, Quantitative 514 H (<400) ng/mL Sodium 140 (136-145) mmol/L Potassium 3.9 (3.5-5.1) mmol/L Chloride 101 (98-107) mmol/L Carbon Dioxide 37.6 H (21.0-32.0) mmol/L Anion Gap 5.3 (5-15) mmol/L BUN 17 (7-18) mg/dL Creatinine 0.99 (0.51-1.17) mg/dL Est Cr Clr Drug Dosing 60.58 mL/min Estimated GFR (MDRD) > 60 mL/min Glucose 232 H (70-140) mg/dL Lactic Acid (0.4-2.0) mmol/L Calcium 8.9 (8.7-10.3) mg/dL Total Bilirubin 0.5 (0.2-1.0) mg/dL AST 15 (15-37) U/L ALT 19 (14-63) U/L Alkaline Phosphatase 91 (46-116) U/L Troponin I High Sens 41.100 (0-76.000) pg/mL B-Natriuretic Peptide (0-100) pg/mL Total Protein 6.6 (6.4-8.2) g/dL Albumin 2.78 L (3.40-5.00) g/dL Influenza Type A RNA (NEGATIVE) RSV RNA (INAAT) (NEGATIVE) Influenza Type B RNA (NEGATIVE) SARS-CoV-2 RNA (SAMIR) (NEGATIVE) 09/16/21 09/16/21 09/16/21 Range/Units 10:27 10:28 12:35 WBC (5.00-10.00) 10^3/uL RBC (4.50-6.00) 10^6/uL Hgb (13.0-17.0) g/dL Hct (40.0-52.0) % MCV (82.0-92.0) fL MCH (27.0-31.0) pg MCHC (32.0-36.0) g/dL RDW (11.5-14.5) % Plt Count (150-400) 10^3/uL MPV (7.4-10.4) fL Immature Gran % (Auto) (0.0-5.0) % Neut % (Auto) (50.0-70.0) % Lymph % (Auto) (20.0-40.0) % [place] % (Auto) (2.0-8.0) % Eos % (Auto) (1.0-3.0) % Baso % (Auto) (0.0-1.0) % Neut # (Auto) (2.50-7.00) 10^3/uL Lymph # (Auto) (1.00-4.00) 10^3/uL [place] # (Auto) (0.10-0.80) 10^3/uL Eos # (Auto) (0.10-0.30) 10^3/uL Baso # (Auto) (0.00-0.10) 10^3/uL Immature Gran # (Auto) (0.00-0.50) 10^3/uL PT (9.2-11.2) SEC INR D-Dimer, Quantitative (<400) ng/mL Sodium (136-145) mmol/L Potassium (3.5-5.1) mmol/L Chloride (98-107) mmol/L Carbon Dioxide (21.0-32.0) mmol/L Anion Gap (5-15) mmol/L BUN (7-18) mg/dL Creatinine (0.51-1.17) mg/dL Est Cr Clr Drug Dosing mL/min Estimated GFR (MDRD) mL/min Glucose (70-140) mg/dL Lactic Acid 1.0 (0.4-2.0) mmol/L Calcium (8.7-10.3) mg/dL Total Bilirubin (0.2-1.0) mg/dL AST (15-37) U/L ALT (14-63) U/L Alkaline Phosphatase (46-116) U/L Troponin I High Sens (0-76.000) pg/mL B-Natriuretic Peptide 636 H (0-100) pg/mL Total Protein (6.4-8.2) g/dL Albumin (3.40-5.00) g/dL Influenza Type A RNA Negative (NEGATIVE) RSV RNA (INAAT) Negative (NEGATIVE) Influenza Type B RNA Negative (NEGATIVE) SARS-CoV-2 RNA (SAMIR) Positive H (NEGATIVE) 09/16/21 09/17/21 09/17/21 Range/Units 18:40 07:15 07:15 WBC (5.00-10.00) 10^3/uL RBC (4.50-6.00) 10^6/uL Hgb (13.0-17.0) g/dL Hct (40.0-52.0) % MCV (82.0-92.0) fL MCH (27.0-31.0) pg MCHC (32.0-36.0) g/dL RDW (11.5-14.5) % Plt Count (150-400) 10^3/uL MPV (7.4-10.4) fL Immature Gran % (Auto) (0.0-5.0) % Neut % (Auto) (50.0-70.0) % Lymph % (Auto) (20.0-40.0) % [place] % (Auto) (2.0-8.0) % Eos % (Auto) (1.0-3.0) % Baso % (Auto) (0.0-1.0) % Neut # (Auto) (2.50-7.00) 10^3/uL Lymph # (Auto) (1.00-4.00) 10^3/uL [place] # (Auto) (0.10-0.80) 10^3/uL Eos # (Auto) (0.10-0.30) 10^3/uL Baso # (Auto) (0.00-0.10) 10^3/uL Immature Gran # (Auto) (0.00-0.50) 10^3/uL PT 19.5 H (9.2-11.2) SEC INR 2.1 1.9 H D-Dimer, Quantitative (<400) ng/mL Sodium 143 (136-145) mmol/L Potassium 3.4 L (3.5-5.1) mmol/L Chloride 103 (98-107) mmol/L Carbon Dioxide 34.4 H (21.0-32.0) mmol/L Anion Gap 9.0 (5-15) mmol/L BUN 16 (7-18) mg/dL Creatinine 0.86 (0.51-1.17) mg/dL Est Cr Clr Drug Dosing 68.10 mL/min Estimated GFR (MDRD) > 60 mL/min Glucose 76 (70-140) mg/dL Lactic Acid (0.4-2.0) mmol/L Calcium 8.6 L (8.7-10.3) mg/dL Total Bilirubin (0.2-1.0) mg/dL AST (15-37) U/L ALT (14-63) U/L Alkaline Phosphatase (46-116) U/L Troponin I High Sens (0-76.000) pg/mL B-Natriuretic Peptide (0-100) pg/mL Total Protein (6.4-8.2) g/dL Albumin (3.40-5.00) g/dL Influenza Type A RNA (NEGATIVE) RSV RNA (INAAT) (NEGATIVE) Influenza Type B RNA (NEGATIVE) SARS-CoV-2 RNA (SAMIR) (NEGATIVE) Med Orders - Current: Current Medications Acetaminophen (Acetaminophen 325 Mg Tab) 650 mg PO Q6HR PRN PRN Reason: Pain Last Admin: 09/17/21 02:24 Dose: 650 mg Documented by: Allopurinol (Allopurinol 100 Mg Tab) 100 mg PO BEDTIME [facility] Last Admin: 09/16/21 20:32 Dose: 100 mg Documented by: Atropine Sulfate (Atropine 0.1 Mg/Ml 10 Ml Syringe) 0 mg IVPUSH ASDIRECTED PRN PRN Reason: Heart. Calcium Citrate (Calcium Citrate/Vitamin D3 315 Mg-250 Unit Tab) 2 tab PO DAILY [facility] Last Admin: 09/17/21 08:32 Dose: 2 tab Documented by: Carbidopa/Levodopa (Carbidopa/Levodopa 25-100 Mg Tab.Er) 1 tab PO BEDTIME [facility] Last Admin: 09/16/21 20:32 Dose: 1 tab Documented by: Carvedilol (Carvedilol 6.25 Mg Tab) 3.125 mg PO BIDMEALS [facility] Last Admin: 09/17/21 08:32 Dose: 3.125 mg Documented by: Digoxin (Digoxin 125 Mcg Tab) 125 mcg PO DAILY [facility] Last Admin: 09/17/21 08:32 Dose: 125 mcg Documented by: Epinephrine HCl (Epinephrine 1:10,000 1 Mg/10 Ml Syringe) 1 mg IVPUSH ASDIRECTED PRN PRN Reason: Heart. Finasteride (Finasteride 5 Mg Tab) 5 mg PO DAILY [facility] Last Admin: 09/17/21 08:32 Dose: 5 mg Documented by: Furosemide (Furosemide 40 Mg/4 Ml Vial) 40 mg IVPUSH DAILY [facility] Last Admin: 09/17/21 08:32 Dose: 40 mg Documented by: Furosemide (Furosemide 40 Mg/4 Ml Vial) 40 mg IVPUSH DAILY ONE Stop: 09/17/21 14:01 Insulin Glargine (Insulin Glargine,Hum.Rec.Anlog 100 Unit/Ml 3 Ml Pen) 20 unit SUBCUT BEDTIME [facility] Last Admin: 09/16/21 20:38 Dose: 20 units Documented by: Lidocaine HCl (Lidocaine 2% 100 Mg/5 Ml Syringe) 0 mg IVPUSH ASDIRECTED PRN PRN Reason: Heart. Metolazone (Metolazone 2.5 Mg Tab) 2.5 mg PO ONETIME ONE Stop: 09/17/21 09:34 Nitroglycerin (Nitroglycerin 0.4 Mg Tab.Sl) 0.4 mg SL ASDIRECTED PRN PRN Reason: Heart. Non-Formulary Medication (Warfarin Dosing) 2.5 mg PO DAILY [facility] Potassium Chloride (Potassium Chloride 20 Meq Tab.Er) 40 meq PO DAILY [facility] Senna/Docusate Sodium (Docusate Sodium/Sennosides 50-8.6 Mg Tab) 1 tab PO BID PRN PRN Reason: Constipation Sodium Chloride (Sodium Chloride 0.9% 10 Ml Syringe) 10 ml FLUSH Q8HR PRN PRN Reason: keep vein open Sotalol HCl (Sotalol 80 Mg Tab) 80 mg PO BID [facility] Last Admin: 09/17/21 08:32 Dose: 80 mg Documented by: Tamsulosin HCl (Tamsulosin 0.4 Mg Cap.Er) 0.8 mg PO BEDTIME [facility] Last Admin: 09/16/21 20:32 Dose: 0.8 mg Documented by: Discontinued Medications Furosemide (Furosemide 40 Mg/4 Ml Vial) 20 mg IVPUSH NOW ONE Stop: 09/16/21 13:46 Last Admin: 09/16/21 13:52 Dose: 20 mg Documented by: - Exam General: Alert, Cooperative, No Acute Distress Lungs: Rales (Right lung base) Cardiovascular: Irregular Rhythm Extremities: Other (Doughy pitting edema to the bilateral lower extremities with glistening skin.) - Patient Data Lab Results Last 24 hrs: Laboratory Results - last 24 hr 09/16/21 09/16/21 09/16/21 Range/Units 10:27 10:27 10:27 WBC 10.06 H (5.00-10.00) 10^3/uL RBC 3.82 L (4.50-6.00) 10^6/uL Hgb 10.4 L (13.0-17.0) g/dL Hct 34.9 L (40.0-52.0) % MCV 91.4 (82.0-92.0) fL MCH 27.2 (27.0-31.0) pg MCHC 29.8 L (32.0-36.0) g/dL RDW 14.6 H (11.5-14.5) % Plt Count 217 (150-400) 10^3/uL MPV 11.2 H (7.4-10.4) fL Immature Gran % (Auto) 0.2 (0.0-5.0) % Neut % (Auto) 71.8 H (50.0-70.0) % Lymph % (Auto) 17.5 L (20.0-40.0) % [place] % (Auto) 8.4 H (2.0-8.0) % Eos % (Auto) 1.5 (1.0-3.0) % Baso % (Auto) 0.6 (0.0-1.0) % Neut # (Auto) 7.22 H (2.50-7.00) 10^3/uL Lymph # (Auto) 1.76 (1.00-4.00) 10^3/uL [place] # (Auto) 0.85 H (0.10-0.80) 10^3/uL Eos # (Auto) 0.15 (0.10-0.30) 10^3/uL Baso # (Auto) 0.06 (0.00-0.10) 10^3/uL Immature Gran # (Auto) 0.02 (0.00-0.50) 10^3/uL PT (9.2-11.2) SEC INR D-Dimer, Quantitative 514 H (<400) ng/mL Sodium 140 (136-145) mmol/L Potassium 3.9 (3.5-5.1) mmol/L Chloride 101 (98-107) mmol/L Carbon Dioxide 37.6 H (21.0-32.0) mmol/L Anion Gap 5.3 (5-15) mmol/L BUN 17 (7-18) mg/dL Creatinine 0.99 (0.51-1.17) mg/dL Est Cr Clr Drug Dosing 60.58 mL/min Estimated GFR (MDRD) > 60 mL/min Glucose 232 H (70-140) mg/dL Lactic Acid (0.4-2.0) mmol/L Calcium 8.9 (8.7-10.3) mg/dL Total Bilirubin 0.5 (0.2-1.0) mg/dL AST 15 (15-37) U/L ALT 19 (14-63) U/L Alkaline Phosphatase 91 (46-116) U/L Troponin I High Sens 41.100 (0-76.000) pg/mL B-Natriuretic Peptide (0-100) pg/mL Total Protein 6.6 (6.4-8.2) g/dL Albumin 2.78 L (3.40-5.00) g/dL Influenza Type A RNA (NEGATIVE) RSV RNA (INAAT) (NEGATIVE) Influenza Type B RNA (NEGATIVE) SARS-CoV-2 RNA (SAMIR) (NEGATIVE) 09/16/21 09/16/21 09/16/21 Range/Units 10:27 10:28 12:35 WBC (5.00-10.00) 10^3/uL RBC (4.50-6.00) 10^6/uL Hgb (13.0-17.0) g/dL Hct (40.0-52.0) % MCV (82.0-92.0) fL MCH (27.0-31.0) pg MCHC (32.0-36.0) g/dL RDW (11.5-14.5) % Plt Count (150-400) 10^3/uL MPV (7.4-10.4) fL Immature Gran % (Auto) (0.0-5.0) % Neut % (Auto) (50.0-70.0) % Lymph % (Auto) (20.0-40.0) % [place] % (Auto) (2.0-8.0) % Eos % (Auto) (1.0-3.0) % Baso % (Auto) (0.0-1.0) % Neut # (Auto) (2.50-7.00) 10^3/uL Lymph # (Auto) (1.00-4.00) 10^3/uL [place] # (Auto) (0.10-0.80) 10^3/uL Eos # (Auto) (0.10-0.30) 10^3/uL Baso # (Auto) (0.00-0.10) 10^3/uL Immature Gran # (Auto) (0.00-0.50) 10^3/uL PT (9.2-11.2) SEC INR D-Dimer, Quantitative (<400) ng/mL Sodium (136-145) mmol/L Potassium (3.5-5.1) mmol/L Chloride (98-107) mmol/L Carbon Dioxide (21.0-32.0) mmol/L Anion Gap (5-15) mmol/L BUN (7-18) mg/dL Creatinine (0.51-1.17) mg/dL Est Cr Clr Drug Dosing mL/min Estimated GFR (MDRD) mL/min Glucose (70-140) mg/dL Lactic Acid 1.0 (0.4-2.0) mmol/L Calcium (8.7-10.3) mg/dL Total Bilirubin (0.2-1.0) mg/dL AST (15-37) U/L ALT (14-63) U/L Alkaline Phosphatase (46-116) U/L Troponin I High Sens (0-76.000) pg/mL B-Natriuretic Peptide 636 H (0-100) pg/mL Total Protein (6.4-8.2) g/dL Albumin (3.40-5.00) g/dL Influenza Type A RNA Negative (NEGATIVE) RSV RNA (INAAT) Negative (NEGATIVE) Influenza Type B RNA Negative (NEGATIVE) SARS-CoV-2 RNA (SAMIR) Positive H (NEGATIVE) 09/16/21 09/17/21 09/17/21 Range/Units 18:40 07:15 07:15 WBC (5.00-10.00) 10^3/uL RBC (4.50-6.00) 10^6/uL Hgb (13.0-17.0) g/dL Hct (40.0-52.0) % MCV (82.0-92.0) fL MCH (27.0-31.0) pg MCHC (32.0-36.0) g/dL RDW (11.5-14.5) % Plt Count (150-400) 10^3/uL MPV (7.4-10.4) fL Immature Gran % (Auto) (0.0-5.0) % Neut % (Auto) (50.0-70.0) % Lymph % (Auto) (20.0-40.0) % [place] % (Auto) (2.0-8.0) % Eos % (Auto) (1.0-3.0) % Baso % (Auto) (0.0-1.0) % Neut # (Auto) (2.50-7.00) 10^3/uL Lymph # (Auto) (1.00-4.00) 10^3/uL [place] # (Auto) (0.10-0.80) 10^3/uL Eos # (Auto) (0.10-0.30) 10^3/uL Baso # (Auto) (0.00-0.10) 10^3/uL Immature Gran # (Auto) (0.00-0.50) 10^3/uL PT 19.5 H (9.2-11.2) SEC INR 2.1 1.9 H D-Dimer, Quantitative (<400) ng/mL Sodium 143 (136-145) mmol/L Potassium 3.4 L (3.5-5.1) mmol/L Chloride 103 (98-107) mmol/L Carbon Dioxide 34.4 H (21.0-32.0) mmol/L Anion Gap 9.0 (5-15) mmol/L BUN 16 (7-18) mg/dL Creatinine 0.86 (0.51-1.17) mg/dL Est Cr Clr Drug Dosing 68.10 mL/min Estimated GFR (MDRD) > 60 mL/min Glucose 76 (70-140) mg/dL Lactic Acid (0.4-2.0) mmol/L Calcium 8.6 L (8.7-10.3) mg/dL Total Bilirubin (0.2-1.0) mg/dL AST (15-37) U/L ALT (14-63) U/L Alkaline Phosphatase (46-116) U/L Troponin I High Sens (0-76.000) pg/mL B-Natriuretic Peptide (0-100) pg/mL Total Protein (6.4-8.2) g/dL Albumin (3.40-5.00) g/dL Influenza Type A RNA (NEGATIVE) RSV RNA (INAAT) (NEGATIVE) Influenza Type B RNA (NEGATIVE) SARS-CoV-2 RNA (SAMIR) (NEGATIVE) Result Diagrams: 09/16/21 10:27 09/17/21 07:15 Sepsis Event Note - Evaluation Sepsis Screening Result: No Definite Risk - Focused Exam Vital Signs: Vital Signs Temp Pulse Pulse Resp BP BP Pulse Ox 09/17/21 08:32 69 129/62 09/17/21 06:24 97.4 F 70 20 130/59 L 95 09/17/21 03:00 97.6 F 70 20 131/57 L 94 L 09/16/21 23:00 97.1 F 70 20 129/58 L 95 - Problem List Review Problem List Initiated/Reviewed/Updated: Yes - My Orders Last 24 Hours: My Active Orders 09/17/21 09:23 Discontinue Telemetry Monitoring [Cardiac Monitoring Discontinue] [RC] Click to Edit 09/17/21 09:33 metOLazone [Zaroxolyn] 2.5 mg PO ONETIME ONE 09/17/21 09:45 Potassium Chloride [Klor-Con M20] 40 meq PO DAILY 09/17/21 14:00 Furosemide [Lasix] 40 mg IVPUSH DAILY ONE - Assessment Assessment:: Admission Diagnoses: HFpEF with exacerbation - Furosemide 40 mg IV daily - Additional furosemide 40 mg IV x 1 dose at 1400 on 09/17 - Metolazone 2.5 mg PO today - Carvedilol 3.125 mg PO BID Hypokalemia - Noted on labs from 09/17, will start potassium chloride 40 mEq daily while on increased diureses Secondary Diagnoses: A-fib with AICD in place - Warfarin, pharmacy to dose while in hospital - Digoxin 125 mcg PO daily - Sotalol 80 mg PO BID Dilated cardiomyopathy HTN DM2 - Insulin glargine 45 units subcut qhs - Trulicity 0.5 mg subcut q week FERCHO Gout - Allopurinol 100 mg PO qhs RLS BPH - Tamsulosin 0.8 mg PO qhs - Finasteride 5 mg PO daily - Terazosin 2 mg PO qhs Anticipate 1-2 more inpatient days with discharge back to half-way facility
[2021-09-17] MEDS ORDERED: Furosemide 40 MG/4 ML VIAL IVPUSH ONE (14:00)
[2021-09-17] MEDS: Potassium Chloride 20 MEQ Tab.ER PO SCH (16:02)
[2021-09-17] MEDS ORDERED: Warfarin 2.5 MG Tab PO SCH (20:15)
[2021-09-17] MEDS: Tamsulosin 0.4 MG Cap.ER PO SCH (20:33)
[2021-09-17] MEDS: Allopurinol 100 MG Tab PO SCH (20:33)
[2021-09-17] MEDS: Carbidopa/Levodopa 25-100 MG Tab.ER PO SCH (20:34)
[2021-09-17] MEDS: Insulin Glargine,Hum.Rec.Anlog 100 UNIT/ML 3 ML Pen SUBCUT SCH (20:34)
[2021-09-18 07:42] LABS: ANION GAP 3.5 mmol/L (5-15); CHLORIDE,CL 99 mmol/L (98-107); SODIUM,NA 139 mmol/L (136-145)
[2021-09-18] MEDS: Digoxin 125 MCG Tab PO SCH (08:45)
[2021-09-18] MEDS: Sotalol 80 MG Tab PO SCH (08:47)
[2021-09-18] MEDS: Calcium Citrate/Vitamin D3 315 MG-250 Unit Tab PO SCH (08:48)
[2021-09-18] MEDS: Finasteride 5 MG Tab PO SCH (08:48)
[2021-09-18] MEDS: Potassium Chloride 20 MEQ Tab.ER PO SCH (08:48)
[2021-09-18] MEDS: Carvedilol 6.25 MG Tab PO SCH (08:49)
[2021-09-18] MEDS: Furosemide 40 MG/4 ML VIAL IVPUSH SCH (08:49)
--- NOTE | 2021-09-18 09:41 | PCM.DCSUM1 ---
Discharge Summary - Hospital Course Diagnosis: Stroke: No - Discharge Data Discharge Date: 09/18/21 Discharge Disposition: Home, Self-Care 01 Condition: Fair - Referral to Home Health Primary Care Physician: Jacob Cui NP - Patient Instructions Diet: Heart Healthy Diet, Diabetic Diet Diet, Other: Low Salt diet. Avoid food that comes out of BAGS, CANS, or BOXES Activity: As Tolerated Driving: Do Not Drive Showering/Bathing: May Shower Other/Special Instructions: Low Salt diet. Avoid food that comes out of BAGS, CANS, or BOXES. . Adding table salt is ok. Ankle pumps while sitting. MUST weigh daily same scale, same time of day (best in morning). Always bring weight logs to all appointments. Will need appointment in clinic BEFORE returning back to senior living. - Discharge Plan *PRESCRIPTION DRUG MONITORING PROGRAM REVIEWED*: Not Applicable *COPY OF PRESCRIPTION DRUG MONITORING REPORT IN PATIENT YOLI: Not Applicable Prescriptions/Med Rec: metOLazone [Zaroxolyn] 2.5 mg PO MOWEFR #12 tab Home Medications: Home Meds Allopurinol [Zyloprim] 100 mg PO BEDTIME 12/14/16 [History] Calcium Carbonate/Vitamin D3 [Calcium 600Mg-D3 400 Unit Sfgl] 1 tab PO DAILY 12/14/16 [History] Carbidopa/Levodopa [Carbidopa-Levo ER 25-100] 1 tab PO BEDTIME 12/14/16 [History] Digoxin 125 mcg PO DAILY 12/14/16 [History] Ferrous Sulfate 325 mg PO BEDTIME 12/14/16 [History] Furosemide 40 mg PO DAILY 12/14/16 [History] Insulin Glarg,Human.Rec.Analog [LantUS Solostar] 20 units SQ BEDTIME 12/14/16 [History] Sotalol [Betapace] 80 mg PO BID 12/14/16 [History] Tamsulosin [Flomax] 0.8 mg PO BEDTIME 12/14/16 [History] Finasteride [Proscar] 5 mg PO DAILY 01/10/19 [History] Warfarin Dosing [Coumadin Ask] 2.5 mg PO DAILY 01/10/19 [History] Acetaminophen [Tylenol] 650 mg PO Q6HR PRN 07/30/21 [History] Sennosides/Docusate Sodium [Senna Plus 8.6-50 mg Tablet] 1 each PO BID PRN 07/30/21 [History] Dulaglutide [Trulicity] 0.5 mg SQ TU 08/22/21 [History] carvediloL [Carvedilol] 3.125 mg PO BIDMEALS 08/22/21 [History] metOLazone [Zaroxolyn] 2.5 mg PO MOWEFR #12 tab 09/18/21 [Rx] Referrals: Jacob Cui, [employer] [Primary Care Provider] - (Should be seen in clinic 1-3 days PRIOR to returning to [place]) - Discharge Summary/Plan Comment DC Time >30 min.: Yes (40 minutes) Total # of Minutes for Discharge Time: 40 Discharge Summary/Plan Comment: Final Dx: HFpEF with exacerbation, clinically improving Hospital course 09/17: Salazar is seen today on inpatient rounds. He was admitted through the ER on 09/16 for CHF exacerbation. He was hospitalized earlier in the month with CHF exacerbation, FTT and weakness. His discharge weight was 184. Upon admission this time he was 189. He was discharged to [facility] and had been under the care of [facility]. Reportedly he was more SOB and had worsening edema in his lower extremities and reportedly he had been given extra oral furosemide (it is unclear how much he received over what period of time at the time of this note) but reportedly he was not responding and so he was sent to the ER for further evaluation. BNP in the ER Was 636. He was given furosemide 20 mg IV x 1 dose and admitted to the floor for further diuresis. Also of note Salazar had COVID in July of 2021. His daughter Esther is present today and states she stayed with him while he had COVID and states it was relatively mild. 09/[address] Adri Ying; this morning on rounds Salazar is just finishing getting cleaned up in the bathroom. He is able to ambulate with stand by assist with his walker to the bed. He reports feeling SOB. His daughter states that while his legs are still edematous they appear to be better than when she first saw them. 09/18; patient sitting in chair, laconic as usual, family in room. Patient feels a lot better now short of breath on ambulation however significant clinical improvement since admission. Appears to have some weight loss however difficult to determine due to scale/day discrepancies. Metolazone 2.5 mg PO was given yesterday with good results. ~-2200 output. Using ICS, 1800 appropriate level for body habitus. Medication changes/adjustments upon discharge --Zaroxolyn 2.5 mg p.o. M/W/F. Newly added --DC tamsulosin Disposition/overall plans --Patient/family does desire to go home today for 2 weeks and be placed back in senior living at [facility] Instructions: Low Salt diet. Avoid food that comes out of BAGS, CANS, or BOXES Adding table salt is ok. Incentive spirometer Ankle pumps while sitting. MUST weigh daily same scale, same time of day (best in morning). Always bring weight logs to all appointments. Will need appointment in clinic BEFORE returning back to senior living. - General Info Functional Status: Reports: Pain Controlled, Tolerating Diet, Ambulating, Urinating, Incentive Spirometry (1800) - Review of Systems General: Denies: Weakness, Fatigue HEENT: Reports: No Symptoms Pulmonary: Reports: Other (much improved SOB) Cardiovascular: Reports: Edema (Mainly left leg however much improved. ) Gastrointestinal: Reports: No Symptoms Genitourinary: Reports: No Symptoms Musculoskeletal: Reports: Foot Pain (some pain in left heel) Skin: Reports: Pallor Neurological: Reports: Pre-Existing Deficit, Gait Disturbance. Denies: Confusion Psychiatric: Reports: No Symptoms - Patient Data Vitals - Most Recent: Last Vital Signs Temp 96.8 F L 09/18/21 05:53 Pulse 70 09/18/21 08:49 Resp 22 H 09/18/21 05:53 BP 98/44 L 09/18/21 08:49 Pulse Ox 95 09/18/21 05:53 Weight - Most Recent: 180 lb 1.6 oz I&O - Last 24 hours: Intake & Output 09/17/21 09/18/21 09/18/21 22:59 06:59 14:59 Intake Total 500 100 Output Total 2800 600 Balance -2300 -500 Lab Results - Last 24 hrs: Laboratory Results - last 24 hr 09/18/21 09/18/21 Range/Units 07:09 07:09 WBC 9.25 (5.00-10.00) 10^3/uL RBC 3.74 L (4.50-6.00) 10^6/uL Hgb 10.2 L (13.0-17.0) g/dL Hct 33.2 L (40.0-52.0) % MCV 88.8 (82.0-92.0) fL MCH 27.3 (27.0-31.0) pg MCHC 30.7 L (32.0-36.0) g/dL RDW 14.3 (11.5-14.5) % Plt Count 220 (150-400) 10^3/uL MPV 10.6 H (7.4-10.4) fL Immature Gran % (Auto) 0.1 (0.0-5.0) % Neut % (Auto) 66.0 (50.0-70.0) % Lymph % (Auto) 21.3 (20.0-40.0) % [place] % (Auto) 9.0 H (2.0-8.0) % Eos % (Auto) 2.8 (1.0-3.0) % Baso % (Auto) 0.8 (0.0-1.0) % Neut # (Auto) 6.11 (2.50-7.00) 10^3/uL Lymph # (Auto) 1.97 (1.00-4.00) 10^3/uL [place] # (Auto) 0.83 H (0.10-0.80) 10^3/uL Eos # (Auto) 0.26 (0.10-0.30) 10^3/uL Baso # (Auto) 0.07 (0.00-0.10) 10^3/uL Immature Gran # (Auto) 0.01 (0.00-0.50) 10^3/uL Sodium 139 (136-145) mmol/L Potassium 3.4 L (3.5-5.1) mmol/L Chloride 99 (98-107) mmol/L Carbon Dioxide 39.9 H (21.0-32.0) mmol/L Anion Gap 3.5 L (5-15) mmol/L BUN 16 (7-18) mg/dL Creatinine 0.98 (0.51-1.17) mg/dL Est Cr Clr Drug Dosing 59.76 mL/min Estimated GFR (MDRD) > 60 mL/min Glucose 83 (70-140) mg/dL Calcium 9.1 (8.7-10.3) mg/dL MABEL Results - Last 24 hrs: Microbiology 09/16/21 11:00 Aerobic Blood Culture - Preliminary Blood - Venous NO GROWTH AFTER 1 DAY Anaerobic Blood Culture - Preliminary NO GROWTH AFTER 1 DAY Med Orders - Current: Current Medications Acetaminophen (Acetaminophen 325 Mg Tab) 650 mg PO Q6HR PRN PRN Reason: Pain Last Admin: 09/17/21 02:24 Dose: 650 mg Documented by: Allopurinol (Allopurinol 100 Mg Tab) 100 mg PO BEDTIME [facility] Last Admin: 09/17/21 20:33 Dose: 100 mg Documented by: Atropine Sulfate (Atropine 0.1 Mg/Ml 10 Ml Syringe) 0 mg IVPUSH ASDIRECTED PRN PRN Reason: Heart. Calcium Citrate (Calcium Citrate/Vitamin D3 315 Mg-250 Unit Tab) 2 tab PO DAILY [facility] Last Admin: 09/18/21 08:48 Dose: 2 tab Documented by: Carbidopa/Levodopa (Carbidopa/Levodopa 25-100 Mg Tab.Er) 1 tab PO BEDTIME [facility] Last Admin: 09/17/21 20:34 Dose: 1 tab Documented by: Carvedilol (Carvedilol 6.25 Mg Tab) 3.125 mg PO BIDMEALS [facility] Last Admin: 09/18/21 08:49 Dose: Not Given Documented by: Digoxin (Digoxin 125 Mcg Tab) 125 mcg PO DAILY [facility] Last Admin: 09/18/21 08:45 Dose: 125 mcg Documented by: Epinephrine HCl (Epinephrine 1:10,000 1 Mg/10 Ml Syringe) 1 mg IVPUSH ASDIRECTED PRN PRN Reason: Heart. Finasteride (Finasteride 5 Mg Tab) 5 mg PO DAILY [facility] Last Admin: 09/18/21 08:48 Dose: 5 mg Documented by: Furosemide (Furosemide 40 Mg/4 Ml Vial) 40 mg IVPUSH DAILY [facility] Last Admin: 09/18/21 08:49 Dose: 40 mg Documented by: Insulin Glargine (Insulin Glargine,Hum.Rec.Anlog 100 Unit/Ml 3 Ml Pen) 20 unit SUBCUT BEDTIME [facility] Last Admin: 09/17/21 20:34 Dose: 20 units Documented by: Lidocaine HCl (Lidocaine 2% 100 Mg/5 Ml Syringe) 0 mg IVPUSH ASDIRECTED PRN PRN Reason: Heart. Nitroglycerin (Nitroglycerin 0.4 Mg Tab.Sl) 0.4 mg SL ASDIRECTED PRN PRN Reason: Heart. Potassium Chloride (Potassium Chloride 20 Meq Tab.Er) 40 meq PO DAILY [facility] Last Admin: 09/18/21 08:48 Dose: 40 meq Documented by: Senna/Docusate Sodium (Docusate Sodium/Sennosides 50-8.6 Mg Tab) 1 tab PO BID PRN PRN Reason: Constipation Sodium Chloride (Sodium Chloride 0.9% 10 Ml Syringe) 10 ml FLUSH Q8HR PRN PRN Reason: keep vein open Sotalol HCl (Sotalol 80 Mg Tab) 80 mg PO BID [facility] Last Admin: 09/18/21 08:47 Dose: Not Given Documented by: Tamsulosin HCl (Tamsulosin 0.4 Mg Cap.Er) 0.8 mg PO BEDTIME [facility] Last Admin: 09/17/21 20:33 Dose: 0.8 mg Documented by: Warfarin Sodium (Warfarin 2.5 Mg Tab) 2.5 mg PO DAILY@1800 [facility] Last Admin: 09/17/21 20:33 Dose: 2.5 mg Documented by: Warfarin Sodium (Pharmacy To Dose - Warfarin) 1 dose PO ASDIRECTED [facility] Discontinued Medications Furosemide (Furosemide 40 Mg/4 Ml Vial) 20 mg IVPUSH NOW ONE Stop: 09/16/21 13:46 Last Admin: 09/16/21 13:52 Dose: 20 mg Documented by: Furosemide (Furosemide 40 Mg/4 Ml Vial) 40 mg IVPUSH DAILY ONE Stop: 09/17/21 14:01 Last Admin: 09/17/21 16:02 Dose: 40 mg Documented by: Metolazone (Metolazone 2.5 Mg Tab) 2.5 mg PO ONETIME ONE Stop: 09/17/21 09:34 Last Admin: 09/17/21 16:01 Dose: 2.5 mg Documented by: - Exam Quality Assessment: Reports: Supplemental Oxygen General: Reports: Alert, Oriented, Cooperative, No Acute Distress Lungs: Reports: Crackles (very mild crackles Left base post) Cardiovascular: Reports: Irregular Rhythm GI/Abdominal Exam: Soft, No Distention Skin: Reports: Warm, Dry, Intact, Other (no heel breakdown) Neurological: Reports: No New Focal Deficit Psy/Mental Status: Reports: Alert
[2021-09-18 11:55] VITALS: BP 124/64; PULSE 69
[2021-09-18] MEDS ORDERED: Warfarin 5 MG Tab PO ONE (18:00)
== END 2021-09-18 13:05 | disposition home or self-care (01) | DRG 291 ==
LOC: KA.ED 10:19 → KA.MS 14:34
PROVIDERS: ADMIT Nurse Practitioner Family; ATTEND Nurse Practitioner Family
DX: I11.0 Hypertensive heart disease with heart failure (principal); I50.33 Acute on chronic diastolic (congestive) heart failure; H54.7 Unspecified visual loss; U07.1 COVID-19; K52.9 Noninfective gastroenteritis and colitis, unspecified; I50.9 Heart failure, unspecified; M19.90 Unspecified osteoarthritis, unspecified site; E87.6 Hypokalemia; M10.9 Gout, unspecified; I48.91 Unspecified atrial fibrillation; I42.0 Dilated cardiomyopathy; G47.33 Obstructive sleep apnea (adult) (pediatric); N40.0 Benign prostatic hyperplasia without lower urinary tract symptoms; E11.9 Type 2 diabetes mellitus without complications; G25.81 Restless legs syndrome; Z95.0 Presence of cardiac pacemaker; Z79.899 Other long term (current) drug therapy; Z79.01 Long term (current) use of anticoagulants; Z79.1 Long term (current) use of non-steroidal anti-inflammatories (NSAID); Z79.4 Long term (current) use of insulin; Z90.89 Acquired absence of other organs; Z98.42 Cataract extraction status, left eye; Z98.41 Cataract extraction status, right eye; Z98.890 Other specified postprocedural states
CPT/HCPCS: 0241U; 36415; 71045; 80048; 80053; 83605; 83880; 84484; 85025; 85379; 85610; 87040; 96374; 99285-25; A9270-GY; J1940